=== PATIENT | male | born 1935 | race Caucasian/White ===

== ENCOUNTER 2016-09-27 17:00 | Emergency (ER) | payer MEDICARE ==
[~2016-09-27] VITALS: Ht 167.6 cm; Wt 77.7 kg
[~2016-09-27 17:00] MED LIST: AC325T PO; ACET-77 PO; ALTACE; ASP325T; ASPI-983 PO; ATOR10TA66 PO; CALC-697 PO; CHOL200035 PO; CYAN100053 IJ; CYAN500T44 PO; FAMO20TA5 PO; FENO145T2 PO; FINA5TAB PO; FNST5T; GARL400T13 PO; LISI40TA PO; METOPROLOL; MGX400T PO; MTP50T PO; MULT1CAP27 PO; NIAC1TBM5 PO; OMEG-109 PO; OMEP20TA2 PO; OMG1KC PO; ONDA4TAB11 PO; PNT40TEC; POTA10CA43 PO; POTA10TA14 PO; RMP5C; SIMV10TA3 PO; SMV10T; SULF1TAB35 PO; TOPROL PO; TRICOR; VIT1CAPS9 PO; WARF4TAB PO; WARFARIN; WRF2T PO; fiber therapy
--- OUTSIDE RECORDS SUMMARY | 2016-09-27 17:06 | XMS REPORT | Continuity of Care Document ---
Author Author [facility] Organization [facility] Address Unknown Phone Unavailable Support Name Relationship Address Phone DREA THOMAS DO Caregiver [address] [address] JAVAD BARFEILD Caregiver [address] [place] [address] KAYLA GUNN Next Of Kin [address] [place] [address] Insurance Providers Payer Name Policy Number Subscriber Name Relationship Wps Medicare [id number] Jorge Gunn 18 Self / Same As Patient Blue Cross Mcr Supp [id number] Jorge Gunn 18 Self / Same As Patient Advance Directives Directive Response Recorded Date/Time Advance Directives Yes 06/09/12 11:16am Health Care Power of Development Expert No 06/09/12 11:16am Organ Donor No 06/09/12 11:16am Problems No known problems or medical conditions. Medications Medication Dose Route Sig Days/Qty Instructions Order Date Discontinued Date Status [Toprol] 20 Mg PO TWICE A DAY 08/07/07 08/06/10 Discontinued Simvastatin 08/07/07 08/06/10 Discontinued [Tricor] 08/07/07 08/06/10 Discontinued [Warfarin ] 08/07/07 08/06/10 Discontinued Ramipril 11/28/07 08/06/10 Discontinued [Metoprolol] 11/28/07 08/06/10 Discontinued Pantoprazole Sodium 11/28/07 08/06/10 Discontinued [Warfarin] 11/28/07 08/06/10 Discontinued Simvastatin 11/28/07 08/06/10 Discontinued Finasteride 11/28/07 08/06/10 Discontinued Lisinopril (Zestril) 1 Each PO DAILY 08/06/10 Active Metoprolol Tartrate 1 Each PO TWICE A DAY 08/06/10 Active Finasteride 5 Mg PO BEDTIME 08/06/10 Active Warfarin Sodium 4 Mg PO DAILY 08/06/10 05/09/12 Discontinued Simvastatin 10 Mg PO BEDTIME 08/06/10 06/10/12 Discontinued Fenofibrate 1 Each PO TWICE A DAY 08/06/10 05/09/12 Discontinued Potassium Chloride (Micro K) 1 Each PO DAILY WITH FOOD 08/06/10 Active Omeprazole 20 Mg PO TWICE A DAY 08/06/10 06/10/12 Discontinued Fish Oil 3,000 Mg PO THREE TIMES A DAY 08/06/10 Active Multivitamins 1 Each PO 08/06/10 05/09/12 Discontinued Magnesium Oxide 400 Mg PO TWICE A DAY 08/06/10 Active Cyanocobalamin (Vitamin B 12 Injecting) 1,000 Mcg IJ MONTHLY 06/10/12 Discontinued Calcium Carbonate/Vitamin D3 1 Each PO DAILY 05/09/12 Active Cholecalciferol (Vitamin D3) 1,000 Unit PO DAILY 05/09/12 Active Garlic 400 Mg PO DAILY 05/09/12 Active Acetaminophen 325 Mg PO NEEDED 05/09/12 Active [fiber therapy] 05/09/12 Active [fiber therapy] 05/09/12 Active Warfarin Sodium 8 Mg PO MON 05/09/12 Active Warfarin Sodium 6 Mg PO TU,W,TH,FR,S,ABREU 05/09/12 Active Niacin/Simvastatin 1 Each PO DAILY 06/10/12 Active Cyanocobalamin (Vitamin B-12) 1 Ea PO DAILY 06/10/12 Active Social History Social History Problem Response Recorded Date/Time Recent Foreign Travel N [place] 08/26/2014 12:50pm Hospital Discharge Instructions No hospital discharge instructions. Plan of Care No plan of care. Functional Status No functional status results. Allergies, Adverse Reactions, Alerts Allergen Type Severity Reaction Status Last Updated No Known Drug Allergies Active 11/28/07 Immunizations Name Given Type Date of Pneumonia Vaccine 06/09/11 Historical Vital Signs No known vital signs results. Results No known relevant diagnostic tests, laboratory data and/or discharge summary. Procedures No known history of procedures. Encounters Encounter Location Date/Time Discharged Recurring Via [facility] 11/18/14 10:43am
--- NOTE | 2016-09-27 17:57 | ED Fall/Injury ---
General Chief Complaint: Trauma-Non Activation Stated Complaint: FALL Nursing Triage Note: FOUND ON FLOOR BY BED BY FACILITY STAFF. PT. DOES NOT WALK Source: RN notes reviewed, caregiver Exam Limitations: clinical condition, physical impairment History of Present Illness Time seen by provider: 17:57 Location Injury Occurred: R-FOREHEAD Occurred: just prior to arrival Injuries/Pain Location: head, neck Context: other (found on floor next to his bed. Patient non ambulatory.) Loss of Consciousness: unsure Modifying Factors: Improves With Other (none) Associated Symptoms (Fall): Neck Pain (although may be chronic) Trouble Walking (non weight bearing) Allergies and Home Medications Allergies Coded Allergies: No Known Drug Allergies (Verified , 11/28/07) Home Medications Acetaminophen 500 Mg Tablet #100 500 MG PO Q4H PRN PRN MILD PAIN Prescribed by: ANI SALDAÑA on 02/27/16 1506 Aspirin 81 Mg Tablet.dr #30 81 MG PO DAILY Prescribed by: DREA THOMAS on 02/16/16 0908 Atorvastatin Calcium 10 Mg Tablet #30 10 MG PO HS Prescribed by: DREA THOMAS on 02/16/16 0908 Cyanocobalamin (Vitamin B-12) 500 Mcg Tablet 500 MCG PO DAILY (Reported) Famotidine 20 Mg Tablet #60 20 MG PO BID PRN PRN INDIGESTION Prescribed by: ANI SALDAÑA on 02/27/16 1506 Finasteride 5 Mg Tablet 5 MG PO HS (Reported) [place]-3 Fatty Acids/Fish Oil 1 Each Capsule 1,200 MG PO DAILY (Reported) Ondansetron 4 Mg Tab.rapdis #30 4 MG PO Q6H PRN PRN NAUSEA/VOMITING Prescribed by: ANI SALDAÑA on 02/27/16 1506 Vit C/Vit E/Lutein/Min/[place]-3 1 Each Capsule 1 CAP PO DAILY (Reported) Constitutional: see HPI (unable to obtain secondary to patient's mental condition (chronic)) Skin: see HPI other (obvious hematoma right forehead) Past Jqctnhx-Hclazz-Gndncg Hx Patient Social History Alcohol Use: Denies Use Recreational Drug Use: No Smoking Status: Former Smoker Former Smoker/When Quit: Jun 09, 1980 Recent Foreign Travel: No Contact w/Someone Who Travel: No Recent Infectious Disease Expo: No Recent Hopitalizations: No (HEMICOLECTOMY) Physical Abuse Screen: No Sexual Abuse: No Immunizations Up To Date Date of Pneumonia Vaccine: Jun 09, 2013 Surgeries HX Surgeries: Yes (X4 BYPASSES,VALVE REPLACED,HOLE IN HEART PATCHED,ANEURYSM,T& A,[id number]) Surgeries: Cardiac, CABG, Vascular Surgery Respiratory Hx Respiratory Disorders: No Cardiovascular Hx Cardiac Disorders: Yes Cardiac Disorders: Aneurysm, Coronary Artery Disease, Hypertension Neurological Hx Neurological Disorders: Yes Reproductive System Hx Reproductive Disorders: No Genitourinary Hx Genitourinary Disorders: Yes (enlarged prostate) Genitourinary Disorders: Benign Prostatic Hyperpl Gastrointestinal Hx Gastrointestinal Disorders: No Musculoskeletal Hx Musculoskeletal Disorders: Yes Musculoskeletal Disorders: Arthritis Endocrine Hx Endocrine Disorders: No HEENT HX 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) HEENT Disorders: Cataract Loss of Vision: Bilateral Hearing Impairment: Hard of Hearing Cancer Hx Cancer: No Psychosocial Hx Psychiatric Problems: No Integumentary HX Skin/Integumentary Disorder: No Blood Transfusions Hx Blood Disorders: Yes (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 Skin is intact.) Cardiovascular: regular rate, rhythm Respiratory: no respiratory distress Rectal: deferred Neurologic/Psychiatric: alert Skin: warm/dry ecchymosis (right forehead) House Coma Score Best Eye Response: (4) Open Spontaneously Best Verbal Response: (1) No Verbal Response Best Motor Response: (5) Localizes to Pain Progress/Results/Core Measures Results/Orders Lab Results Laboratory Tests Test 09/27/16 19:10 Range/Units Activated Partial Thromboplast Time 36 H 24-35 SEC Alanine Aminotransferase (ALT/SGPT) 11 0-55 U/L Albumin 3.4 3.2-4.5 G/DL Alkaline Phosphatase 65 40-136 U/L Anion Gap 9 5-14 MMOL/L Aspartate Amino Transf (AST/SGOT) 17 5-34 U/L BUN/Creatinine Ratio 17 Basophils # (Auto) 0.0 0.0-0.1 10^3/uL Basophils (%) (Auto) 0 0-10 % Blood Urea Nitrogen 13 7-18 MG/DL Calcium Level 8.0 L 8.5-10.1 MG/DL Carbon Dioxide Level 24 21-32 MMOL/L Chloride Level 110 H 98-107 MMOL/L Creatinine 0.78 0.60-1.30 MG/DL Eosinophils # (Auto) 0.1 0.0-0.3 10^3/uL Eosinophils (%) (Auto) 2 0-10 % Estimat Glomerular Filtration Rate > 60 Glucose Level 103 70-105 MG/DL Hematocrit 35 L 40-54 % Hemoglobin 11.2 L 13.3-17.7 G/DL INR Comment 1.9 H 0.8-1.4 Lymphocytes # (Auto) 1.8 1.0-4.0 X 10^3 Lymphocytes (%) (Auto) 24 12-44 % Mean Corpuscular Hemoglobin 27 25-34 PG Mean Corpuscular Hemoglobin Concent 32 32-36 G/DL Mean Corpuscular Volume 85 80-99 FL Mean Platelet Volume 9.9 7.4-10.4 FL Monocytes # (Auto) 0.6 0.0-1.0 X 10^3 Monocytes (%) (Auto) 8 0-12 % Neutrophils # (Auto) 4.9 1.8-7.8 X 10^3 Neutrophils (%) (Auto) 66 42-75 % Platelet Count 240 130-400 10^3/uL Potassium Level 3.3 L 3.6-5.0 MMOL/L Prothrombin Time 21.8 H 12.2-14.7 SEC Red Blood Count 4.11 L 4.35-5.85 10^6/uL Red Cell Distribution Width 16.8 H 10.0-14.5 % Sodium Level 143 135-145 MMOL/L Total Bilirubin 0.7 0.1-1.0 MG/DL Total Protein 6.0 L 6.4-8.2 G/DL White Blood Count 7.5 4.3-11.0 10^3/uL My Orders Orders-ARISTIDES SUN DO Ct Head/Cervical Spine Wo (09/27/16 17:58) Saline Lock/Iv-Start (09/27/16 18:32) Cbc With Automated Diff (09/27/16 18:32) Comprehensive Metabolic Panel (09/27/16 18:32) Protime With Inr (09/27/16 18:32) Partial Thromboplastin Time (09/27/16 18:32) Vital Signs/I&O Vital Sign - Last 12Hours 09/27/16 09/27/16 17:40 20:30 Temp 97.5 97.5 Pulse 78 76 Resp 20 20 B/P 112/68 Pulse Ox 97 95 O2 Delivery Room Air Room Air Blood Pressure Mean: 83 Progress Note : Progress Note Discussed case c/ Dr. Riley, the Trauma surgeon decision support manager. He had no problem [facility] the [facility] and following up c/ Dr. Jensen outpatient a[place]is. Patient's DPOA aware of all the findings tonight and current treatment plans. 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 Nothing acute C-spine alexis.) Departure Impression Impression: Primary Impression: Fall Additional Impressions: Contusion /hematoma forehead Aggressive lesion sinuses Disposition: Condition: Stable Departure-Patient Inst. Decision time for Depature: 20:15 Referrals: DREA THOMAS DO (PCP/Family) Primary Care Physician Patient Instructions: Closed Head Injury (DC) Add. Discharge Instructions: All discharge instructions reviewed with patient and/or family. Voiced understanding. NEED TO SCHEDULE A FOLLOW UP APPOINTMENT WITH DR. JENSEN (ENT) REGARDING THE TUMOR FOUND IN HIS SINUS THIS ARISTIDES BURKS DO Sep 27, 2016 17:57
--- NOTE | 2016-09-27 19:16 | Diagnostic Imaging Report ---
PROCEDURE: CT head and CT cervical spine without contrast. TECHNIQUE: Multiple contiguous axial images were obtained through the brain and cervical spine without the use of intravenous contrast. Sagittal and coronal reformations through the cervical spine were then performed. INDICATION: Fall. Patient found down. On blood thinners. COMPARISON: Head CT dated 02/27/2016. FINDINGS: Head CT: No acute intracranial hemorrhage is suspected. There is no mass effect or midline shift. The partially calcified extra-axial hyperdense mass in the anterior right frontal calvarium is again demonstrated and appears similar to the prior study measuring about 3.7 cm x 3 cm. This is likely a benign meningioma. Diffuse atrophy appears similar to the prior study. Ventricles appear stable in size. Areas of old infarct in the right frontal and occipital lobes bilaterally are again noted similar to the prior exam as are scattered chronic-appearing white matter changes likely related to underlying small vessel ischemic disease. No new focal abnormality is suspected. There is significant abnormal soft tissue density in the left maxillary sinus which is new from the prior study. This appears to be causing some destructive change of the medial maxillary wall, and a mucocele or aggressive lesion such as squamous cell carcinoma would not be entirely excluded. No discrete fracture is seen. There is also soft tissue thickening extending through the nares into the nasopharynx and oropharynx on the left and also into the sphenoid sinus. Cervical spine CT: No acute fracture or acute traumatic malalignment is suspected. There is rotation at the atlantoaxial interval which is likely positional. There are diffuse degenerative changes with disc space narrowing and spurring throughout the cervical spine with multiple levels of foraminal stenosis. IMPRESSION: 1. No evidence of an acute intracranial or cervical spine traumatic abnormality. 2. Large partially calcified extra-axial mass in the right frontal region is unchanged from the prior study as are chronic senescent changes as described above. 3. Large destructive soft tissue lesion originating in the left maxillary sinus with extension through the medial left maxillary wall and nares into the left sphenoid sinus as well as involving the nasopharynx and oropharynx. This is concerning for an aggressive lesion possibly neoplasm. 4. Degenerative changes in the spine. 5. Rotation at the atlantoaxial interval is likely due to patient positioning. Dictated by: Dictated on workstation # [id number]
[2016-09-27 19:22] LABS: BASOPHILS % (AUTO) 0 % (0-10); EOSINOPHILS # (AUTO) 0.1 10^3/uL (0.0-0.3); EOSINOPHILS % (AUTO) 2 % (0-10); LYMPHOCYTES # (AUTO) 1.8 X 10^3 (1.0-4.0); LYMPHOCYTES % (AUTO) 24 % (12-44); MEAN CORPUSCULAR HEMOGLOBIN 27 PG (25-34); MEAN CORPUSCULAR HGB CONC 32 G/DL (32-36); MEAN CORPUSCULAR VOLUME 85 FL (80-99); MEAN PLATELET VOLUME 9.9 FL (7.4-10.4); MONOCYTES # (AUTO) 0.6 X 10^3 (0.0-1.0); MONOCYTES % (AUTO) 8 % (0-12); NEUTROPHILS # (AUTO) 4.9 X 10^3 (1.8-7.8); NEUTROPHILS % (AUTO) 66 % (42-75); PLATELET COUNT 240 10^3/uL (130-400); RED BLOOD COUNT 4.11 10^6/uL (4.35-5.85); RED CELL DISTRIBUTION WIDTH 16.8 % (10.0-14.5); WHITE BLOOD COUNT 7.5 10^3/uL (4.3-11.0)
[2016-09-27 19:35] LABS: INR 1.9 (0.8-1.4); PROTHROMBIN TIME PATIENT 21.8 SEC (12.2-14.7)
[2016-09-27 19:45] LABS: ALANINE AMINOTRANSFERASE 11 U/L (0-55); ALBUMIN 3.4 G/DL (3.2-4.5); ANION GAP 9 MMOL/L (5-14); ASPARTATE AMINO TRANSFERASE 17 U/L (5-34); BILIRUBIN,TOTAL 0.7 MG/DL (0.1-1.0); BLOOD UREA NITROGEN 13 MG/DL (7-18); BUN/CREATININE RATIO 17; CARBON DIOXIDE 24 MMOL/L (21-32); CHLORIDE 110 MMOL/L (98-107); CREATININE SERUM 0.78 MG/DL (0.60-1.30); GFR ESTIMATED > 60; GLUCOSE 103 MG/DL (70-105); POTASSIUM 3.3 MMOL/L (3.6-5.0); SODIUM 143 MMOL/L (135-145)
[2016-09-27 20:30] VITALS: BP 119/73
== END 2016-09-27 20:30 ==
LOC: EDUNIT# 17:00 → ER 17:02
DX: S00.83XA Contusion of other part of head, initial encounter (principal); J34.89 Other specified disorders of nose and nasal sinuses; M47.812 Spondylosis without myelopathy or radiculopathy, cervical region; I10 Essential (primary) hypertension; Z79.82 Long term (current) use of aspirin; Z79.899 Other long term (current) drug therapy; Z95.1 Presence of aortocoronary bypass graft; W06.XXXA Fall from bed, initial encounter; Y92.122 Bedroom in nursing home as the place of occurrence of the external cause; Y99.8 Other external cause status
CPT/HCPCS: 36415; 70450; 72125; 80053; 85025; 85610; 85730

== ENCOUNTER 2016-10-07 13:42 | Outpatient (RCR) | payer MEDICARE ==
[2016-10-07 13:42] LABS: BASOPHILS % (AUTO) 0 % (0-10); EOSINOPHILS # (AUTO) 0.1 10^3/uL (0.0-0.3); EOSINOPHILS % (AUTO) 2 % (0-10); LYMPHOCYTES # (AUTO) 1.4 X 10^3 (1.0-4.0); LYMPHOCYTES % (AUTO) 18 % (12-44); MEAN CORPUSCULAR HEMOGLOBIN 27 PG (25-34); MEAN CORPUSCULAR HGB CONC 32 G/DL (32-36); MEAN CORPUSCULAR VOLUME 85 FL (80-99); MEAN PLATELET VOLUME 9.5 FL (7.4-10.4); MONOCYTES # (AUTO) 0.8 X 10^3 (0.0-1.0); MONOCYTES % (AUTO) 11 % (0-12); NEUTROPHILS # (AUTO) 5.2 X 10^3 (1.8-7.8); NEUTROPHILS % (AUTO) 69 % (42-75); PLATELET COUNT 245 10^3/uL (130-400); RED BLOOD COUNT 4.05 10^6/uL (4.35-5.85); RED CELL DISTRIBUTION WIDTH 16.9 % (10.0-14.5); WHITE BLOOD COUNT 7.5 10^3/uL (4.3-11.0)
--- OUTSIDE RECORDS SUMMARY | 2016-10-07 13:46 | XMS REPORT | Continuity of Care Document ---
Author Author [facility] Organization [facility] Address Unknown Phone Unavailable Support Name Relationship Address Phone DREA THOMAS DO Caregiver [address] [address] JAVAD BARFIELD Caregiver [address] [place] [address] KAYLA GUNN Next Of Kin [address] [place] [address] Insurance Providers Payer Name Policy Number Subscriber Name Relationship Wps Medicare [id number] Jorge Gunn 18 Self / Same As Patient Blue Cross Mcr Supp [id number] Jorge Gunn 18 Self / Same As Patient Advance Directives Directive Response Recorded Date/Time Advance Directives Yes 06/09/12 11:16am Health Care Power of Debeader No 06/09/12 11:16am Organ Donor No 06/09/12 [...] Encounters Encounter Location Date/Time Discharged Recurring Via [facility] 11/18/14 10:43am
[2016-10-07 14:20] LABS: INR 1.9 (0.8-1.4); PROTHROMBIN TIME PATIENT 21.1 SEC (12.2-14.7)
[2016-10-07 14:27] LABS: ALANINE AMINOTRANSFERASE 9 U/L (0-55); ALBUMIN 3.3 G/DL (3.2-4.5); ANION GAP 9 MMOL/L (5-14); ASPARTATE AMINO TRANSFERASE 15 U/L (5-34); BILIRUBIN,TOTAL 0.7 MG/DL (0.1-1.0); BLOOD UREA NITROGEN 11 MG/DL (7-18); BUN/CREATININE RATIO 14; CALCIUM 7.5 MG/DL (8.5-10.1); CARBON DIOXIDE 24 MMOL/L (21-32); CHLORIDE 110 MMOL/L (98-107); CREATININE SERUM 0.78 MG/DL (0.60-1.30); GFR ESTIMATED > 60; GLUCOSE 128 MG/DL (70-105); POTASSIUM 2.6 MMOL/L (3.6-5.0); SODIUM 143 MMOL/L (135-145)
[2016-10-11 08:31] LABS: METHYLMALONIC ACID 0.18 umol/L (0.00-0.40)
== END 2017-01-05 | disposition home or self-care (01) ==
LOC: ONC 13:42
PROVIDERS: ATTEND Internal Medicine Hematology & Oncology
DX: D51.8 Other vitamin B12 deficiency anemias (principal); D50.9 Iron deficiency anemia, unspecified; D63.1 Anemia in chronic kidney disease; N18.3 Chronic kidney disease, stage 3 (moderate); I25.10 Atherosclerotic heart disease of native coronary artery without angina pectoris; E78.5 Hyperlipidemia, unspecified; I12.9 Hypertensive chronic kidney disease with stage 1 through stage 4 chronic kidney disease, or unspecified chronic kidney disease; Z79.01 Long term (current) use of anticoagulants; Z79.899 Other long term (current) drug therapy; Z95.2 Presence of prosthetic heart valve
CPT/HCPCS: 36415; 80053; 82728; 83735; 83921; 85025; 85610; 99213

== ENCOUNTER → 2017-02-24 | Emergency (ER) | payer MEDICARE ==
[~2017-02-24] VITALS: Ht 170.2 cm; Wt 90.7 kg
[~2017-02-24] MED LIST changes: +HYDR-757 PO; +HYDROcodone/APAP 5 MG/325 MG (LORTAB) TAB PO ONE; +IOHEXOL 350 MG/ML 100 ML (OMNIPAQUE 350) VIAL IV ONE; +NS 100 ML (IVPB) BAG IV ONE
[2017-02-24 16:15] VITALS: BP 123/106
--- NOTE | 2017-02-24 16:28 | ED Fall/Injury ---
General Stated Complaint: FALL Source: patient Exam Limitations: no limitations History of Present Illness Time seen by provider: 16:27 Initial Comments To ER [facility] with reports of a fall out of bed. He has laceration to the right frontal part of his scalp. Unknown loss of consciousness. No neck pain. He also has pain to the right anterolateral ribs. He is baseline senile. Occurred: just prior to arrival Severity: moderate Context: unknown Allergies and Home Medications Allergies Coded Allergies: No Known Drug Allergies (Verified , 11/28/07) Home Medications Acetaminophen 500 Mg Tablet, 500 MG PO Q4H PRN for MILD PAIN, #100 Prescribed by: ANI SALDAÑA on 02/27/16 1506 Aspirin 81 Mg Tablet.dr, 81 MG PO DAILY, #30 Prescribed by: DREA THOMAS on 02/16/16 0908 Atorvastatin Calcium 10 Mg Tablet, 10 MG PO HS, #30 Prescribed by: DREA THOMAS on 02/16/16 0908 Cyanocobalamin (Vitamin B-12) 500 Mcg Tablet, 500 MCG PO DAILY, (Reported) Famotidine 20 Mg Tablet, 20 MG PO BID PRN for INDIGESTION, #60 Prescribed by: ANI SALDAÑA on 02/27/16 1506 Finasteride 5 Mg Tablet, 5 MG PO HS, (Reported) Hydrocodone/Acetaminophen 1 Each Tablet, 1 EACH PO Q4H PRN for PAIN-MILD TO MODERATE, #10 Prescribed by: JANKI PIZANO on 02/24/17 1819 [place]-3 Fatty Acids/Fish Oil 1 Each Capsule, 1,200 MG PO DAILY, (Reported) Ondansetron 4 Mg Tab.rapdis, 4 MG PO Q6H PRN for NAUSEA/VOMITING, #30 Prescribed by: ANI SALDAÑA on 02/27/16 1506 Vit C/Vit E/Lutein/Min/[place]-3 1 Each Capsule, 1 CAP PO DAILY, (Reported) Constitutional: see HPI Eyes: No Symptoms Reported Ears, Nose, Mouth, Throat: no symptoms reported Respiratory: no symptoms reported Cardiovascular: no symptoms reported Genitourinary: no symptoms reported Musculoskeletal: no symptoms reported Skin: no symptoms reported Psychiatric/Neurological: No Symptoms Reported Past Fxssccb-Oiyqlu-Zdzcjd Hx Patient Social History Former Smoker/When Quit: Jun 09, 1980 Recent Hopitalizations: No (HEMICOLECTOMY) Immunizations Up To Date Date of Pneumonia Vaccine: Jun 09, 2013 Surgeries HX Surgeries: Yes (X4 BYPASSES,VALVE REPLACED,HOLE IN HEART PATCHED,ANEURYSM,T& A,[id number]) Surgeries: Cardiac, CABG, Vascular Surgery Respiratory Hx Respiratory Disorders: No Cardiovascular Hx Cardiac Disorders: Yes Cardiac Disorders: Aneurysm, Coronary Artery Disease, Hypertension Neurological Hx Neurological Disorders: Yes Reproductive System Hx Reproductive Disorders: No Genitourinary Hx Genitourinary Disorders: Yes (enlarged prostate) Genitourinary Disorders: Benign Prostatic Hyperpl Gastrointestinal Hx Gastrointestinal Disorders: No Musculoskeletal Hx Musculoskeletal Disorders: Yes Musculoskeletal Disorders: Arthritis Endocrine Hx Endocrine Disorders: No HEENT HX 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) HEENT Disorders: Cataract Loss of Vision: Bilateral Hearing Impairment: Hard of Hearing Cancer Hx Cancer: No Psychosocial Hx Psychiatric Problems: No Integumentary HX Skin/Integumentary Disorder: No Blood Transfusions Hx Blood Disorders: Yes (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) Adverse Reaction to a Blood Tr: No Family Medical History Significant Family History: Stroke Physical Exam Vital Signs Vital Sign - Last 12Hours 02/24/17 16:15 Pulse 107 Resp 22 B/P (MAP) 123/106 (112) Pulse Ox 94 O2 Delivery Room Air Capillary Refill : General Appearance: WD/WN, no apparent distress HEENT: PERRL/EOMI, normal ENT inspection Neck: non-tender, full range of motion Respiratory: no respiratory distress, no accessory muscle use, other (tender to palpation right anterolateral chest) Gastrointestinal: normal bowel sounds, non tender, soft Neurologic/Psychiatric: alert, other (alternating between yelling "help me, help me!" And serenading the entire ER with various old songs) Laceration Repair : Wound Location: Scalp (Drive) Staple Repair: Stapler 35W Progress/Results/Core Measures Results/Orders Lab Results Laboratory Tests Test 02/24/17 16:12 02/24/17 16:17 Range/Units Prothrombin Time 23.4 H 12.2-14.7 SEC INR Comment 2.1 H 0.8-1.4 White Blood Count 7.0 4.3-11.0 10^3/uL Red Blood Count 4.56 4.35-5.85 10^6/uL Hemoglobin 12.3 L 13.3-17.7 G/DL Hematocrit 39 L 40-54 % Mean Corpuscular Volume 86 80-99 FL Mean Corpuscular Hemoglobin 27 25-34 PG Mean Corpuscular Hemoglobin Concent 31 L 32-36 G/DL Red Cell Distribution Width 16.2 H 10.0-14.5 % Platelet Count 235 130-400 10^3/uL Mean Platelet Volume 10.3 7.4-10.4 FL Neutrophils (%) (Auto) 69 42-75 % Lymphocytes (%) (Auto) 20 12-44 % Monocytes (%) (Auto) 9 0-12 % Eosinophils (%) (Auto) 1 0-10 % Basophils (%) (Auto) 0 0-10 % Neutrophils # (Auto) 4.8 1.8-7.8 X 10^3 Lymphocytes # (Auto) 1.4 1.0-4.0 X 10^3 Monocytes # (Auto) 0.7 0.0-1.0 X 10^3 Eosinophils # (Auto) 0.1 0.0-0.3 10^3/uL Basophils # (Auto) 0.0 0.0-0.1 10^3/uL Sodium Level 141 135-145 MMOL/L Potassium Level 4.0 3.6-5.0 MMOL/L Chloride Level 109 H 98-107 MMOL/L Carbon Dioxide Level 22 21-32 MMOL/L Anion Gap 10 5-14 MMOL/L Blood Urea Nitrogen 21 H 7-18 MG/DL Creatinine 0.96 0.60-1.30 MG/DL Estimat Glomerular Filtration Rate > 60 BUN/Creatinine Ratio 22 Glucose Level 113 H 70-105 MG/DL Calcium Level 9.0 8.5-10.1 MG/DL Total Bilirubin 0.7 0.1-1.0 MG/DL Aspartate Amino Transf (AST/SGOT) 18 5-34 U/L Alanine Aminotransferase (ALT/SGPT) 15 0-55 U/L Alkaline Phosphatase 65 40-136 U/L Total Protein 6.9 6.4-8.2 G/DL Albumin 3.9 3.2-4.5 G/DL My Orders Orders - JANKI PIZANO APRN Cbc With Automated Diff (02/24/17 16:12) Comprehensive Metabolic Panel (02/24/17 16:12) Ct Head/Cervical Spine Wo (02/24/17 16:12) Fentanyl Injection (Sublimaze Injection (02/24/17 16:30) Chest 1 View, Ap/Pa Only (02/24/17 16:26) Iohexol Injection (Omnipaque 350 Mg/Ml 1 (02/24/17 17:00) Ns (Ivpb) (Sodium Chloride 0.9% Ivpb Bag (02/24/17 17:00) Protime With Inr (02/24/17 17:12) Ct Chest/Abdomen/Pelvis Wo (02/24/17 16:12) Lidocaine 2% Injection 20 Ml (Xylocaine (02/24/17 18:15) Vital Signs/I&O Vital Sign - Last 12Hours 02/24/17 16:15 Pulse 107 Resp 22 B/P (MAP) 123/106 (112) Pulse Ox 94 O2 Delivery Room Air Departure Impression Impression: Primary Impression: Scalp laceration Additional Impressions: Fall at snf Calcified cerebral meningioma Disposition: 03 XFER SNF Condition: Stable Departure-Patient Inst. Decision time for Depature: 18:05 Referrals: SYED SANTO MD (PCP/Family) Primary Care Physician Patient Instructions: Laceration Repair With [place] (DC) Add. Discharge Instructions: 1. Remove the mansoor in 7 days 2. Return to ER for any concerns 3. See his doctor next week Scripts Hydrocodone/Acetaminophen ([place] 5-325 Tablet) 1 Each Tablet 1 EACH PO Q4H Y for PAIN-MILD TO MODERATE, #10 TAB Prov: JANKI PIZANO APRN 02/24/17 JANKI PIZANO APRN Feb 24, 2017 16:28
[2017-02-24 16:35] LABS: BASOPHILS % (AUTO) 0 % (0-10); EOSINOPHILS # (AUTO) 0.1 10^3/uL (0.0-0.3); EOSINOPHILS % (AUTO) 1 % (0-10); LYMPHOCYTES # (AUTO) 1.4 X 10^3 (1.0-4.0); LYMPHOCYTES % (AUTO) 20 % (12-44); MEAN CORPUSCULAR HEMOGLOBIN 27 PG (25-34); MEAN CORPUSCULAR HGB CONC 31 G/DL (32-36); MEAN CORPUSCULAR VOLUME 86 FL (80-99); MEAN PLATELET VOLUME 10.3 FL (7.4-10.4); MONOCYTES # (AUTO) 0.7 X 10^3 (0.0-1.0); MONOCYTES % (AUTO) 9 % (0-12); NEUTROPHILS # (AUTO) 4.8 X 10^3 (1.8-7.8); NEUTROPHILS % (AUTO) 69 % (42-75); PLATELET COUNT 235 10^3/uL (130-400); RED BLOOD COUNT 4.56 10^6/uL (4.35-5.85); RED CELL DISTRIBUTION WIDTH 16.2 % (10.0-14.5)
[2017-02-24 16:53] LABS: ALANINE AMINOTRANSFERASE 15 U/L (0-55); ALBUMIN 3.9 G/DL (3.2-4.5); ANION GAP 10 MMOL/L (5-14); ASPARTATE AMINO TRANSFERASE 18 U/L (5-34); BILIRUBIN,TOTAL 0.7 MG/DL (0.1-1.0); BLOOD UREA NITROGEN 21 MG/DL (7-18); BUN/CREATININE RATIO 22; CARBON DIOXIDE 22 MMOL/L (21-32); CHLORIDE 109 MMOL/L (98-107); CREATININE SERUM 0.96 MG/DL (0.60-1.30); GFR ESTIMATED > 60; GLUCOSE 113 MG/DL (70-105); SODIUM 141 MMOL/L (135-145); TOTAL PROTEIN 6.9 G/DL (6.4-8.2)
--- NOTE | 2017-02-24 16:59 | Diagnostic Imaging Report ---
INDICATION: Status post fall with chest pain. PA chest obtained at 04:42 p.m. Patient has had previous sternotomy with valve replacement. Heart is normal in size. There is no acute infiltrate, pneumothorax, or pleural fluid. There is some minimal linear scarring in left lateral base. IMPRESSION: Postoperative findings with mild chronic changes. No acute abnormality. Dictated by: Dictated on workstation # [id number]
[2017-02-24 17:20] LABS: INR 2.1 (0.8-1.4); PROTHROMBIN TIME PATIENT 23.4 SEC (12.2-14.7)
--- NOTE | 2017-02-24 17:47 | Diagnostic Imaging Report ---
PROCEDURE: CT chest, abdomen, and pelvis without contrast. TECHNIQUE: Multiple contiguous axial images were obtained through the chest, abdomen, and pelvis without the use of intravenous contrast. INDICATION: Fell to the right side of the body, has head laceration to the right forehead, abrasion to the right elbow and tenderness to the right ribs and chest area. Patient has intracranial hemorrhage reportedly. FINDINGS: CT scanning of the chest demonstrates the lungs to be clear. No pulmonary nodules or pleural effusions are present. Previous coronary artery bypass graft changes and valvular heart surgery is present. There are no pleural or pericardial effusions. No fractures are identified. There is no pneumothorax. Abdomen and pelvis: The liver, spleen, pancreas and adrenal glands appear normal. Bilateral renal cysts are present. No calculi or hydronephrosis is seen. Mesh is seen within the abdominal wall. Urinary bladder is normal. Increased stool is seen throughout the colon. No evidence of an ileus or obstruction is present. The gallbladder may have some mild gallbladder wall thickening. If the patient has symptoms, consider an ultrasound. No fractures or diastasis are identified. Degenerative changes are present in the spine. IMPRESSION: 1. No acute findings are present. 2. Previous aortic valve and coronary artery bypass graft changes. 3. Constipation with mild diverticulosis. 4. Degenerative changes of the spine. Dictated by: Dictated on workstation # [id number]
--- NOTE | 2017-02-24 17:53 | Diagnostic Imaging Report ---
PROCEDURE: CT head and CT cervical spine without contrast. TECHNIQUE: Multiple contiguous axial images were obtained through the brain and cervical spine without the use of intravenous contrast. Sagittal and coronal reformations through the cervical spine were then performed. INDICATION: Fall. Laceration on the right forehead. COMPARISON: 09/27/16. FINDINGS: CT head: There is a calcified mass, measuring 3.6 x 2.7 cm in an extra-axial location along the medial aspect of the falx cerebri, anteriorly, with the mass effect upon the right frontal lobe. 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 There is also evidence of old infarcts in the occipital regions. There is bilateral extensive periventricular and deep white matter hypodensities compatible with chronic microvascular ischemic changes. There is no acute intracranial hemorrhage. The calvarium appears grossly unremarkable. Similar to 09/27/2016 there is soft tissue obliteration of the visualized portions of the maxillary sinus and nasal cavity with extension of the process to the left ethmoidal air cells which could represent a neoplasm or a sinonasal polyp. CT cervical spine: The alignment of the posterior spinal line is similar to 09/27/2016 with mild posterior transition of C3 over C4 and posterior fusion of the vertebral bodies C5 and C6 with straightening of the lordotic curvature. There is satisfactory alignment of the facet joints. The atlantooccipital joints and the lateral masses of C1 and C2 have normal alignment. The vertebral body heights are preserved. Multilevel posterior osteophytes are noted. Stable sclerotic lesion in the second thoracic vertebra, measuring 1.5 cm, is again seen of uncertain etiology. No fracture is seen. IMPRESSION: CT head: 1. No intracranial hemorrhage. 2. 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 3. Mass opacifying the right maxillary sinus extending to the right nasal cavity and ethmoidal air cells may represent a sinonasal polyp or neoplasm. CT cervical spine: No fracture is seen. Dictated by: Dictated on workstation # [id number]
[2017-02-24] MEDS: LIDOCAINE 2% 20 ML (XYLOCAINE) VIAL INJ ONE (18:25)
[2017-02-24] MEDS: TETANUS,DIPTH,PERTUSS P/F (BOOSTRIX) 0.5 ML VIAL IM ONE (18:49)
[2017-02-24] MEDS: fentaNYL INJECTION 100 MCG/2 ML AMP IVP ONE (18:55)
== END ==
LOC: EDUNIT# 16:11 → ER 16:12
DX: S01.01XA Laceration without foreign body of scalp, initial encounter (principal); S50.311A Abrasion of right elbow, initial encounter; S29.9XXA Unspecified injury of thorax, initial encounter; Z23 Encounter for immunization; J34.9 Unspecified disorder of nose and nasal sinuses; K59.00 Constipation, unspecified; K57.30 Diverticulosis of large intestine without perforation or abscess without bleeding; M47.816 Spondylosis without myelopathy or radiculopathy, lumbar region; D32.0 Benign neoplasm of cerebral meninges; I10 Essential (primary) hypertension; I25.10 Atherosclerotic heart disease of native coronary artery without angina pectoris; Z95.1 Presence of aortocoronary bypass graft; Z79.82 Long term (current) use of aspirin; W06.XXXA Fall from bed, initial encounter; Y92.219 Unspecified school as the place of occurrence of the external cause; Y99.8 Other external cause status
CPT/HCPCS: 12013; 36415; 70450; 71010; 71250; 72125; 74176; 80053; 85025; 85610; 90715

== ENCOUNTER 2017-06-21 15:39 | Emergency (ER) | payer MEDICARE, MEDICAID ==
[~2017-06-21] VITALS: Ht 170.2 cm; Wt 84.1 kg
[~2017-06-21 15:39] MED LIST changes: -HYDROcodone/APAP 5 MG/325 MG (LORTAB) TAB PO ONE; -IOHEXOL 350 MG/ML 100 ML (OMNIPAQUE 350) VIAL IV ONE; -NS 100 ML (IVPB) BAG IV ONE
--- NOTE | 2017-06-21 16:39 | Diagnostic Imaging Report ---
PROCEDURE: CT head without contrast. TECHNIQUE: Multiple contiguous axial images were obtained through the brain without the use of intravenous contrast. INDICATION: Headache in the frontal region. COMPARISON: 02/24/2017. FINDINGS: There is a right parafalcine extra-axial calcified mass measuring 3.8 cm, compatible with a meningioma, similar to the 02/24/2017 exam. 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 Old infarcts in the occipital lobes are also seen in addition to background chronic microvascular ischemic changes in the periventricular and deep white matter. There is no acute intracranial hemorrhage. No brain edema or mass effect. No hydrocephalus. The calvarium and the visualized portions of the orbits appear unremarkable. There is soft tissue density filling and slightly expanding the left maxillary sinus and the left nasal cavity, similar to 02/24/2017 which may relate to an intracranial polyp or potentially could be neoplastic. An ENT evaluation is suggested. IMPRESSION: 1. Stable calcified anterior right parafalcine mass, compatible with a meningioma. 2. Stable mass in the left maxillary sinus and left nasal cavity which may relate to an antrochoanal polyp or neoplasm. An ENT evaluation is suggested. 3. No acute intracranial hemorrhage. Dictated by: Dictated on workstation # [id number]
--- NOTE | 2017-06-21 16:51 | ED Fall/Injury ---
General Chief Complaint: Trauma-Non Activation Stated Complaint: PT FELL AND HIT HEAD Nursing Triage Note: SEE TRAUMA NOTE. Source: patient, snf records, caregiver Exam Limitations: no limitations History of Present Illness Time seen by provider: 16:30 Initial Comments Here from snf with unwitnessed fall. Apparently hit his forehead. Unsure if he was sitting or trying to get out of bed. Patient denies any significant injury except for stating that his forehead hurts. He is on Coumadin. Location Injury Occurred: [facility] Occurred: this afternoon Severity: mild Injuries/Pain Location: head Context: unknown Loss of Consciousness: unsure Associated Symptoms (Fall): Headache Allergies and Home Medications Allergies Coded Allergies: No Known Drug Allergies (Verified , 11/28/07) Home Medications Acetaminophen 500 Mg Tablet, 500 MG PO Q4H PRN for MILD PAIN, #100 Prescribed by: ANI SALDAÑA on 02/27/16 1506 Aspirin 81 Mg Tablet.dr, 81 MG PO DAILY, #30 Prescribed by: DREA THOMAS on 02/16/16 0908 Atorvastatin Calcium 10 Mg Tablet, 10 MG PO HS, #30 Prescribed by: DREA THOMAS on 02/16/16 0908 Cyanocobalamin (Vitamin B-12) 500 Mcg Tablet, 500 MCG PO DAILY, (Reported) Famotidine 20 Mg Tablet, 20 MG PO BID PRN for INDIGESTION, #60 Prescribed by: ANI SALDAÑA on 02/27/16 1506 Finasteride 5 Mg Tablet, 5 MG PO HS, (Reported) Hydrocodone/Acetaminophen 1 Each Tablet, 1 EACH PO Q4H PRN for PAIN-MILD TO MODERATE, #10 Prescribed by: JANKI PIZANO on 02/24/17 1819 [place]-3 Fatty Acids/Fish Oil 1 Each Capsule, 1,200 MG PO DAILY, (Reported) Ondansetron 4 Mg Tab.rapdis, 4 MG PO Q6H PRN for NAUSEA/VOMITING, #30 Prescribed by: ANI SALDAÑA on 02/27/16 1506 Vit C/Vit E/Lutein/Min/[place]-3 1 Each Capsule, 1 CAP PO DAILY, (Reported) Constitutional: see HPI, No chills, No fever Eyes: No Symptoms Reported Ears, Nose, Mouth, Throat: no symptoms reported Respiratory: no symptoms reported Cardiovascular: no symptoms reported Gastrointestinal: no symptoms reported, No nausea, No vomiting Musculoskeletal: no symptoms reported Skin: no symptoms reported, No change in color, No lesions, No rash Psychiatric/Neurological: No Symptoms Reported Past Lkbrbrp-Njzwmu-Vuxtlk Hx Patient Social History Alcohol Use: Denies Use Recreational Drug Use: No Smoking Status: Former Smoker Former Smoker, Quit: Jun 09, 1980 2nd Hand Smoke Exposure: No Recent Foreign Travel: No Contact w/Someone Who Travel: No Recent Infectious Disease Expo: No Recent Hopitalizations: No Physical Abuse: No Sexual Abuse: No Immunizations Up To Date Date of Pneumonia Vaccine: Jun 09, 2013 Surgeries History of Surgeries: Yes (X4 BYPASSES,VALVE REPLACED,HOLE IN HEART PATCHED, ANEURYSM,T&A,[id number]) Surgeries: Cardiac, CABG, Vascular Surgery Respiratory History of Respiratory Disorde: No Currently Using CPAP: No Currently Using BIPAP: No Cardiovascular History of Cardiac Disorders: Yes Cardiac Disorders: Aneurysm, Coronary Artery Disease, Endocarditis, High Cholesterol, Hypertension Neurological History of Neurological Disord: Yes Reproductive System Hx Reproductive Disorders: No Genitourinary Genitourinary Disorders: Benign Prostatic Hyperpl Gastrointestinal History of Gastrointestinal Di: Yes Gastrointestinal Disorders: Ulcer Musculoskeletal History of Musculoskeletal Dis: Yes Musculoskeletal Disorders: Arthritis Endocrine History of Endocrine Disorders: No HEENT HEENT Disorders: Cataract Loss of Vision: Bilateral Hearing Impairment: Hard of Hearing Cancer History of Cancer: No Psychosocial History of Psychiatric Problem: No Suicide Risk Score: 0 Integumentary History of Skin or Integumenta: No Blood Transfusions History of Blood Disorders: Yes (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) Adverse Reaction to a Blood Tr: No Reviewed Nursing Assessment Reviewed/Agree w Nursing PMH: Yes Family Medical History Significant Family History: Stroke Physical Exam Vital Signs Vital Sign - Last 12Hours 06/21/17 15:55 Temp 98.1 Pulse 90 Resp 20 B/P (MAP) 105/70 Pulse Ox 97 O2 Delivery Room Air Capillary Refill : Less Than 3 Seconds General Appearance: no apparent distress, thin HEENT: PERRL/EOMI, pharynx normal Neck: full range of motion, supple Cardiovascular: regular rate, rhythm, systolic murmur Respiratory: lungs clear, normal breath sounds Gastrointestinal: non tender, soft Extremities: no pedal edema, pelvis stable Neurologic/Psychiatric: alert, oriented x 3 Skin: normal color, warm/dry Renan Coma Score Best Eye Response: (4) Open Spontaneously Best Verbal Response: (5) Oriented Best Motor Response: (6) Obeys Commands Progress/Results/Core Measures Results/Orders Lab Results Laboratory Tests Test 06/21/17 16:40 Range/Units Prothrombin Time 36.1 H 12.2-14.7 SEC INR Comment 3.7 H 0.8-1.4 My Orders Orders - EMIR PAYNE MD Ct Head Wo (06/21/17 15:54) Protime With Inr (06/21/17 15:54) Vital Signs/I&O Vital Sign - Last 12Hours 06/21/17 15:55 Temp 98.1 Pulse 90 Resp 20 B/P (MAP) 105/70 Pulse Ox 97 O2 Delivery Room Air Blood Pressure Mean: 82 Progress Note : Progress Note Seen and evaluated. CT head ordered. PT and INR evaluated. Monitor patient. 1708: No acute findings on CT. Findings are noted. Discharged snf with return precautions. Caregiver verbalize understanding instructions and agreement with plan. Departure Impression Impression: Primary Impression: Minor head injury Qualified Codes: S00.90XA - Unspecified superficial injury of unspecified part of head, initial encounter Additional Impression: Fall Qualified Codes: W19.XXXA - Unspecified fall, initial encounter Disposition: 01 HOME, SELF-CARE Condition: Stable Departure-Patient Inst. Decision time for Depature: 17:13 Referrals: SYED SANTO MD (PCP/Family) Primary Care Physician Patient Instructions: Minor Head Injury (DC) Add. Discharge Instructions: All discharge instructions reviewed with patient and/or family. Voiced understanding. Continue medications as directed. Follow-up with your DrTeresa in one to 2 days for recheck. Return for worse pain, fever, vomiting, weakness, breathing problems or other concerns as needed. EMIR PAYNE MD Jun 21, 2017 16:51
[2017-06-21 16:55] LABS: INR 3.7 (0.8-1.4); PROTHROMBIN TIME PATIENT 36.1 SEC (12.2-14.7)
[2017-06-21 17:20] VITALS: BP 105/70
== END 2017-06-21 17:20 | disposition home or self-care (01) ==
LOC: EDUNIT# 15:39 → ER 15:41
DX: S09.90XA Unspecified injury of head, initial encounter (principal); I25.10 Atherosclerotic heart disease of native coronary artery without angina pectoris; I10 Essential (primary) hypertension; E78.00 Pure hypercholesterolemia, unspecified; Z95.1 Presence of aortocoronary bypass graft; Z87.891 Personal history of nicotine dependence; Z95.2 Presence of prosthetic heart valve; Z79.82 Long term (current) use of aspirin; Z79.01 Long term (current) use of anticoagulants; W19.XXXA Unspecified fall, initial encounter
CPT/HCPCS: 36415; 70450; 85610; 99282

== ENCOUNTER → 2017-08-07 | Outpatient (CLI) | payer MEDICARE, MEDICAID ==
[2017-08-07 15:21] LABS: PROTHROMBIN TIME PATIENT 30.7 SEC (12.2-14.7)
== END ==
LOC: LABNPT 15:01
PROVIDERS: ATTEND Internal Medicine
DX: D64.9 Anemia, unspecified (principal); Z79.01 Long term (current) use of anticoagulants
CPT/HCPCS: 85610

== ENCOUNTER 2017-09-18 15:55 | Emergency (ER) | payer MEDICARE, MEDICAID ==
[~2017-09-18] VITALS: Ht 162.6 cm; Wt 59.0 kg
[2017-09-18] MEDS ORDERED: fentaNYL INJECTION 100 MCG/2 ML AMP IM STA (16:08)
[2017-09-18] MEDS ORDERED: HALOPERIDOL 5 MG/ML (HALDOL) AMP IM ONE (16:15)
[2017-09-18] MEDS ORDERED: ZIPRASIDONE 20 MG (GEODON) CAP PO ONE (16:15)
--- NOTE | 2017-09-18 16:27 | ED Fall/Injury ---
General Chief Complaint: Trauma-Non Activation Stated Complaint: FALL Nursing Triage Note: pt presents to ed for fall from sitting position while in his recliner. pt reports r shoulder pain and collar bone pain. Source: patient Exam Limitations: other (dementia) History of Present Illness Time seen by provider: 16:03 Location Injury Occurred: [facility] Allergies and Home Medications Allergies Coded Allergies: No Known Drug Allergies (Verified , 11/28/07) Home Medications Acetaminophen 500 Mg Tablet, 500 MG PO Q4H PRN for MILD PAIN, #100 Prescribed by: ANI SALDAÑA on 02/27/16 1506 Aspirin 81 Mg Tablet.dr, 81 MG PO DAILY, #30 Prescribed by: DREA THOMAS on 02/16/16 0908 Atorvastatin Calcium 10 Mg Tablet, 10 MG PO HS, #30 Prescribed by: DREA THOMAS on 02/16/16 0908 Cyanocobalamin (Vitamin B-12) 500 Mcg Tablet, 500 MCG PO DAILY, (Reported) Famotidine 20 Mg Tablet, 20 MG PO BID PRN for INDIGESTION, #60 Prescribed by: ANI SALDAÑA on 02/27/16 1506 Finasteride 5 Mg Tablet, 5 MG PO HS, (Reported) Hydrocodone/Acetaminophen 1 Each Tablet, 1 EACH PO Q4H PRN for PAIN-MILD TO MODERATE, #10 Prescribed by: JANKI PIZANO on 02/24/17 1819 [place]-3 Fatty Acids/Fish Oil 1 Each Capsule, 1,200 MG PO DAILY, (Reported) Ondansetron 4 Mg Tab.rapdis, 4 MG PO Q6H PRN for NAUSEA/VOMITING, #30 Prescribed by: ANI SALDAÑA on 02/27/16 1506 Vit C/Vit E/Lutein/Min/[place]-3 1 Each Capsule, 1 CAP PO DAILY, (Reported) Past Rwrlelj-Nnhyst-Eeuiyj Hx Patient Social History Alcohol Use: Denies Use Recreational Drug Use: No Smoking Status: Former Smoker Former Smoker, Quit: Jun 09, 1980 2nd Hand Smoke Exposure: No Recent Foreign Travel: No Contact w/Someone Who Travel: No Recent Infectious Disease Expo: No Recent Hopitalizations: No Physical Abuse: No Sexual Abuse: No Mistreated: No Immunizations Up To Date Date of Pneumonia Vaccine: Jun 09, 2013 Surgeries History of Surgeries: Yes (X4 BYPASSES,VALVE REPLACED,HOLE IN HEART PATCHED, ANEURYSM,T&A,[id number]) Surgeries: Cardiac, CABG, Vascular Surgery Respiratory History of Respiratory Disorde: No Currently Using CPAP: No Currently Using BIPAP: No Cardiovascular History of Cardiac Disorders: Yes Cardiac Disorders: Aneurysm, Angina, Coronary Artery Disease, Endocarditis, High Cholesterol, Hypertension Neurological History of Neurological Disord: Yes Neurological Disorders: Dementia Reproductive System Hx Reproductive Disorders: No Genitourinary Genitourinary Disorders: Benign Prostatic Hyperpl Gastrointestinal History of Gastrointestinal Di: Yes Gastrointestinal Disorders: Ulcer Musculoskeletal History of Musculoskeletal Dis: Yes Musculoskeletal Disorders: Arthritis Endocrine History of Endocrine Disorders: No HEENT HEENT Disorders: Cataract Loss of Vision: Bilateral Hearing Impairment: Hard of Hearing Cancer History of Cancer: No Psychosocial History of Psychiatric Problem: No Suicide Risk Score: 0 Integumentary History of Skin or Integumenta: No Blood Transfusions History of Blood Disorders: Yes (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) Adverse Reaction to a Blood Tr: No Family Medical History Significant Family History: Stroke Physical Exam Vital Signs Vital Sign - Last 12Hours Capillary Refill : Less Than 3 Seconds Progress/Results/Core Measures Results/Orders My Orders Orders - RASHAD FALL Fentanyl Injection (Sublimaze Injection (09/18/17 16:08) Ct Head/Cervical Spine Wo (09/18/17 16:08) Chest 1 View, Ap/Pa Only (09/18/17 16:08) Shoulder, Right, 3 Views (09/18/17 16:08) Pelvis (09/18/17 16:08) Haloperidol Injection (Haldol Injectio (09/18/17 16:15) Ziprasidone Capsule (Geodon Capsule) (09/18/17 16:15) Medications Given in ED Current Medications Medications Dose Ordered Sig/Sandro Route Start Time Stop Time Status Last Admin Dose Admin Ziprasidone 20 mg ONCE ONCE PO 09/18/17 16:15 09/18/17 16:16 DC 09/18/17 16:48 20 MG Vital Signs/I&O Vital Sign - Last 12Hours 09/18/17 09/18/17 16:04 16:04 Temp 98.6 98.6 Pulse 83 83 Resp 20 20 B/P (MAP) 155/87 (109) 155/87 (109) Pulse Ox 97 97 Blood Pressure Mean: 109 Departure Impression Impression: Primary Impression: Right shoulder pain Additional Impression: Fall Disposition: 03 XFER SNF Departure-Patient Inst. Decision time for Depature: 18:57 Referrals: SYED SANTO MD (PCP/Family) Primary Care Physician Patient Instructions: Contusion (DC), Preventing Falls in the Older Adult Add. Discharge Instructions: All discharge instructions reviewed with patient and/or family. Voiced understanding. Continue usual home medications. No activities which may result and head injury for 7 days. Ice pack for 20 minute intervals as needed for pain. Follow-up with Bernardino Reyes APRN this week for recheck. Return to the emergency department for worsened pain, changes in behavior, slurred speech , facial drooping, numbness, weakness, seizure, shortness of air, chest pain, vomiting, or any other concerns. RASHAD FALL Sep 18, 2017 16:27
--- NOTE | 2017-09-18 17:15 | Diagnostic Imaging Report ---
PROCEDURE: CT head and CT cervical spine without contrast. TECHNIQUE: Multiple contiguous axial images were obtained through the brain and cervical spine without the use of intravenous contrast. Sagittal and coronal reformations through the cervical spine were then performed. INDICATION: Fall, head and neck pain. COMPARISON: CT head from 06/21/2017. FINDINGS: Please note the examination is limited due to extensive motion artifact. No meningioma is seen in the right frontal lobe, anteriorly. Multifocal areas of encephalomalacia are seen compatible with prior infarction. There is no obvious large hemorrhage. IMPRESSION: Limited examination due to motion artifact. No obvious large hemorrhage is seen. The cervical spine was not performed due to lack of cooperation. Dictated by: Dictated on workstation # [id number]
--- NOTE | 2017-09-18 18:02 | Diagnostic Imaging Report ---
INDICATION: Fall, pelvic pain COMPARISON: None FINDINGS: Single view of the pelvis demonstrates no fracture or dislocation. Articular surfaces are normal. IMPRESSION: Negative pelvis Dictated by: Dictated on workstation # [id number]
--- NOTE | 2017-09-18 18:03 | Diagnostic Imaging Report ---
INDICATION: Fall, coronary artery disease COMPARISON: 02/24/2017 FINDINGS: Single view of the chest demonstrates cardiac enlargement without pulmonary edema. The lungs are clear. There is no pneumothorax. Sternal wires midline. Prior aortic valve prosthesis is seen. IMPRESSION: Cardiac enlargement without pulmonary edema or infiltrate Dictated by: Dictated on workstation # [id number]
--- NOTE | 2017-09-18 18:04 | Diagnostic Imaging Report ---
INDICATION: Right shoulder pain, fall. COMPARISON: None. EXAMINATION: Five views of the right shoulder were obtained. FINDINGS: No obvious fracture or dislocation. No osseous lesion is seen. The examination is limited due to patient's lack of cooperation. IMPRESSION: No obvious fracture. Dictated by: Dictated on workstation # [id number]
[2017-09-18 19:47] VITALS: BP 145/76
== END 2017-09-18 19:47 ==
LOC: EDUNIT# 15:55 → ER 15:56
DX: I25.10 Atherosclerotic heart disease of native coronary artery without angina pectoris (principal); M25.511 Pain in right shoulder; E78.00 Pure hypercholesterolemia, unspecified; I10 Essential (primary) hypertension; N40.0 Benign prostatic hyperplasia without lower urinary tract symptoms; F03.90 Unspecified dementia, unspecified severity, without behavioral disturbance, psychotic disturbance, mood disturbance, and anxiety; Z79.82 Long term (current) use of aspirin; Z87.19 Personal history of other diseases of the digestive system; Z87.891 Personal history of nicotine dependence; Z95.2 Presence of prosthetic heart valve; Z95.1 Presence of aortocoronary bypass graft; W18.30XA Fall on same level, unspecified, initial encounter
CPT/HCPCS: 70450; 71010; 72125; 72170; 73030; 99284

== ENCOUNTER → 2017-09-19 | Outpatient (CLI) | payer MEDICARE, MEDICAID ==
[2017-09-19 09:56] LABS: PROTHROMBIN TIME PATIENT 22.3 SEC (12.2-14.7)
== END ==
LOC: LABNPT 09:38
PROVIDERS: ATTEND Internal Medicine
DX: Z51.81 Encounter for therapeutic drug level monitoring (principal); Z79.01 Long term (current) use of anticoagulants
CPT/HCPCS: 85610

== ENCOUNTER 2017-09-20 05:51 | Emergency (ER) | payer MEDICARE, MEDICAID ==
[~2017-09-20] VITALS: Ht 162.6 cm; Wt 59.1 kg
[2017-09-20] MEDS ORDERED: ONDANSETRON 4 MG (ZOFRAN) ORAL DISSOLVE TAB ONE (05:55)
[2017-09-20] MEDS ORDERED: LIDOCAINE 1% INJ 50 ML (XYLOCAINE) VIAL ONE (06:03)
[2017-09-20] MEDS ORDERED: TRIM/SULFAMETH 160/800 (SEPTRA DS) TAB PO ONE (06:15)
[2017-09-20] MEDS ORDERED: HYDROcodone/APAP 5 MG/325 MG (LORTAB) TAB PO ONE (06:15)
[2017-09-20] MEDS ORDERED: SULF1TAB35 PO (06:37)
--- NOTE | 2017-09-20 06:38 | ED General ---
General Chief Complaint: Skin/Wound Problems Stated Complaint: INJURY TO RT EAR Nursing Triage Note: right lower ear avulsion Nursing Sepsis Screen: No Definite Risk Source of Information: Caregiver, EMS, Custodial Records Exam Limitations: No Limitations History of Present Illness Time Seen by Provider: 05:54 Allergies and Home Medications Allergies Coded Allergies: No Known Drug Allergies (Verified , 11/28/07) Home Medications Acetaminophen 500 Mg Tablet, 500 MG PO Q4H PRN for MILD PAIN, #100 Prescribed by: ANI SALDAÑA on 02/27/16 1506 Aspirin 81 Mg Tablet.dr, 81 MG PO DAILY, #30 Prescribed by: DREA THOMAS on 02/16/16 0908 Atorvastatin Calcium 10 Mg Tablet, 10 MG PO HS, #30 Prescribed by: DREA THOMAS on 02/16/16 0908 Cyanocobalamin (Vitamin B-12) 500 Mcg Tablet, 500 MCG PO DAILY, (Reported) Famotidine 20 Mg Tablet, 20 MG PO BID PRN for INDIGESTION, #60 Prescribed by: ANI SALDAÑA on 02/27/16 1506 Finasteride 5 Mg Tablet, 5 MG PO HS, (Reported) Hydrocodone/Acetaminophen 1 Each Tablet, 1 EACH PO Q4H PRN for PAIN-MILD TO MODERATE, #10 Prescribed by: JANKI PIZANO on 02/24/17 1819 [place]-3 Fatty Acids/Fish Oil 1 Each Capsule, 1,200 MG PO DAILY, (Reported) Ondansetron 4 Mg Tab.rapdis, 4 MG PO Q6H PRN for NAUSEA/VOMITING, #30 Prescribed by: ANI SALDAÑA on 02/27/16 1506 Vit C/Vit E/Lutein/Min/[place]-3 1 Each Capsule, 1 CAP PO DAILY, (Reported) Past Tftxnfs-Cagiot-Nufrkm Hx Patient Social History Alcohol Use: Denies Use Recreational Drug Use: No Smoking Status: Former Smoker Former Smoker, Quit: Jun 09, 1980 2nd Hand Smoke Exposure: No Recent Foreign Travel: No Contact w/Someone Who Travel: No Recent Infectious Disease Expo: No Recent Hopitalizations: No Immunizations Up To Date Date of Pneumonia Vaccine: Jun 09, 2013 Seasonal Allergies Seasonal Allergies: No Surgeries History of Surgeries: Yes (X4 BYPASSES,VALVE REPLACED,HOLE IN HEART PATCHED, ANEURYSM,T&A,[id number]) Surgeries: Cardiac, CABG, Vascular Surgery Respiratory History of Respiratory Disorde: No Currently Using CPAP: No Currently Using BIPAP: No Cardiovascular History of Cardiac Disorders: Yes Cardiac Disorders: Aneurysm, Angina, Coronary Artery Disease, Endocarditis, High Cholesterol, Hypertension Neurological History of Neurological Disord: Yes Neurological Disorders: Dementia Reproductive System Hx Reproductive Disorders: No Genitourinary Genitourinary Disorders: Benign Prostatic Hyperpl Gastrointestinal History of Gastrointestinal Di: Yes Gastrointestinal Disorders: Ulcer Musculoskeletal History of Musculoskeletal Dis: Yes Musculoskeletal Disorders: Arthritis Endocrine History of Endocrine Disorders: No HEENT HEENT Disorders: Cataract Loss of Vision: Bilateral Hearing Impairment: Hard of Hearing Cancer History of Cancer: No Psychosocial History of Psychiatric Problem: No Integumentary History of Skin or Integumenta: No Blood Transfusions History of Blood Disorders: Yes (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) Adverse Reaction to a Blood Tr: No Family Medical History Significant Family History: Stroke Physical Exam Vital Signs Vital Sign - Last 12Hours 09/20/17 05:58 Temp 98.0 Pulse 72 Resp 18 B/P (MAP) 96/58 (71) Pulse Ox 95 O2 Delivery Room Air Capillary Refill : Less Than 3 Seconds Progress/Results/Core Measures Suspected Sepsis Recent Fever Within 48 Hours: No Infection Criteria Present: None New/Unexplained Altered Menta: No Sepsis Screen: No Definite Risk Sepsis Diagnosis: SIRS Temperature:98.0 Pulse: 72 Respiratory Rate: 18 Blood Pressure 96 /58 Mean: 71 Results/Orders My Orders Orders - MICKY LEE MD Ondansetron Oral Dissolve Tab (Zofran (09/20/17 05:55) Lidocaine 1% (Xylocaine 1%) (09/20/17 06:03) Hydrocodone/Apap 5/325 Tablet (Lortab 5 (09/20/17 06:15) Sulfamethoxazole/Trimet Ds Tab (Bactrim (09/20/17 06:15) Medications Given in ED Current Medications Medications Dose Ordered Sig/Sandro Route Start Time Stop Time Status Last Admin Dose Admin Acetaminophen/ Hydrocodone Bitart 1 tab ONCE ONCE PO 09/20/17 06:15 09/20/17 06:16 DC 09/20/17 06:12 1 TAB Lidocaine HCl 50 ml STK-MED ONCE .ROUTE 09/20/17 06:03 09/20/17 06:06 DC 09/20/17 06:08 50 ML Ondansetron HCl 4 mg STK-MED ONCE .ROUTE 09/20/17 05:55 09/20/17 05:57 DC 09/20/17 06:03 4 MG Trimethoprim/ Sulfamethoxazole 1 ea ONCE ONCE PO 09/20/17 06:15 09/20/17 06:16 DC 09/20/17 06:13 1 EA Vital Signs/I&O Vital Sign - Last 12Hours 09/20/17 09/20/17 05:58 06:12 Temp 98.0 98.0 Pulse 72 Resp 18 B/P (MAP) 96/58 (71) Pulse Ox 95 O2 Delivery Room Air Capillary Refill : Less Than 3 Seconds Blood Pressure Mean: 71 Departure Impression Impression: Primary Impression: Laceration of ear lobe Qualified Codes: S01.311A - Laceration without foreign body of right ear, initial encounter Disposition: HOME, SELF-CARE Condition: Improved Departure-Patient Inst. Decision time for Depature: 06:30 Referrals: SYED SANTO MD (PCP/Family) Primary Care Physician Patient Instructions: Laceration Repair With Stitches (DC) Add. Discharge Instructions: Keep the wound clean and dry except for normal bathing. Monitor for signs of infection such as increasing redness, puslike drainage, fever, etc. Return to care promptly. Noticed the symptoms. Complete antibiotics as prescribed. Remove sutures in 7-10 days. All discharge instructions reviewed with patient and/or family. Voiced understanding. Scripts Sulfamethoxazole/Trimethoprim (Bactrim Ds Tablet) 1 Each Tablet 1 EACH PO BID, #14 TAB Prov: MICKY LEE MD 09/20/17 MICKY LEE MD Sep 20, 2017 06:38
[2017-09-20 08:35] VITALS: BP 90/62
== END 2017-09-20 08:35 | disposition home or self-care (01) ==
LOC: EDUNIT# 05:51 → ER 05:54
DX: S01.311A Laceration without foreign body of right ear, initial encounter (principal); I25.10 Atherosclerotic heart disease of native coronary artery without angina pectoris; E78.00 Pure hypercholesterolemia, unspecified; I10 Essential (primary) hypertension; F03.90 Unspecified dementia, unspecified severity, without behavioral disturbance, psychotic disturbance, mood disturbance, and anxiety; Z79.02 Long term (current) use of antithrombotics/antiplatelets; Z79.82 Long term (current) use of aspirin; Z87.891 Personal history of nicotine dependence; Z95.1 Presence of aortocoronary bypass graft; Z95.2 Presence of prosthetic heart valve; Z86.73 Personal history of transient ischemic attack (TIA), and cerebral infarction without residual deficits; X58.XXXA Exposure to other specified factors, initial encounter
CPT/HCPCS: 12052

== ENCOUNTER 2017-09-23 03:41 | Emergency (ER) | payer MEDICARE, MEDICAID ==
[~2017-09-23] VITALS: Ht 165.1 cm; Wt 63.5 kg
[2017-09-23] MEDS ORDERED: LACTATED RINGERS 1,000 ML IV ONE ×2 (03:47→04:30)
--- OUTSIDE RECORDS SUMMARY | 2017-09-23 03:52 | XMS REPORT | Continuity of Care Document ---
Author Author [facility] Organization [facility] Address Unknown Phone Unavailable Allergies Active Description Code Type Severity Reaction Onset Reported/Identified Relationship to Patient Clinical Status Yes No Known Drug Allergies [id number] Drug Allergy Unknown N/A 11/28/2007 Medications There is no data. Problems Date Dx Coded Attending Type Code Diagnosis Diagnosed By 08/27/2009 Ot 280.9 08/27/2009 Ot 281.1 08/27/2009 Ot 787.91 08/27/2009 Ot 790.92 08/27/2009 Ot V43.3 08/27/2009 Ot V58.61 08/27/2009 Ot V58.69 12/10/2009 Ot 280.9 12/10/2009 Ot 281.1 12/10/2009 Ot 569.3 12/10/2009 Ot 787.91 12/10/2009 Ot V43.3 12/10/2009 Ot V58.61 12/10/2009 Ot V58.69 03/29/2010 Ot 280.9 03/29/2010 Ot 281.1 03/29/2010 Ot 787.91 03/29/2010 Ot V43.3 03/29/2010 Ot V58.61 03/29/2010 Ot V58.69 08/14/2010 Ot 250.00 08/14/2010 Ot 272.0 08/14/2010 Ot 272.1 08/14/2010 Ot 276.8 08/14/2010 Ot 285.1 08/14/2010 Ot 292.81 08/14/2010 Ot 308.9 08/14/2010 Ot 403.90 08/14/2010 Ot 414.00 08/14/2010 Ot 427.89 08/14/2010 Ot 433.10 08/14/2010 Ot 560.1 08/14/2010 Ot 560.81 08/14/2010 Ot 585.3 08/14/2010 Ot 780.79 08/14/2010 Ot 783.21 08/14/2010 Ot 790.92 08/14/2010 Ot 997.4 08/14/2010 Ot E934.2 08/14/2010 Ot E935.2 08/14/2010 Ot V12.71 08/14/2010 Ot V12.79 08/14/2010 Ot V43.3 08/14/2010 Ot V45.72 08/14/2010 Ot V45.81 08/14/2010 Ot V57.1 08/14/2010 Ot V57.21 08/14/2010 Ot V58.61 08/19/2010 Ot 250.00 08/19/2010 Ot 272.0 08/19/2010 Ot 276.8 08/19/2010 Ot 285.1 08/19/2010 Ot 403.90 08/19/2010 Ot 414.00 08/19/2010 Ot 433.10 08/19/2010 Ot 560.1 08/19/2010 Ot 585.3 08/19/2010 Ot 707.03 08/19/2010 Ot 707.22 08/19/2010 Ot 790.92 08/19/2010 Ot 997.4 08/19/2010 Ot V12.71 08/19/2010 Ot V12.79 08/19/2010 Ot V43.3 08/19/2010 Ot V45.72 08/19/2010 Ot V45.81 08/19/2010 Ot V58.61 08/19/2010 Ot V58.75 09/23/2010 Ot 280.9 IRON DEFIC ANEMIA NOS 09/23/2010 Ot 281.1 B12 DEFIC ANEMIA NEC 09/23/2010 Ot 787.91 DIARRHEA 09/23/2010 Ot V43.3 HEART VALVE REPLAC NEC 09/23/2010 Ot V58.61 ANTICOAGULANTS,LT,CURRENT USE 09/23/2010 Ot V58.69 OTH MED,LT, CURRENT USE 12/24/2010 Ot 280.9 IRON DEFIC ANEMIA NOS 12/24/2010 Ot 281.1 B12 DEFIC ANEMIA NEC 12/24/2010 Ot 787.91 DIARRHEA 12/24/2010 Ot V43.3 HEART VALVE REPLAC NEC 12/24/2010 Ot V58.61 ANTICOAGULANTS,LT,CURRENT USE 12/24/2010 Ot V58.69 OTH MED,LT, CURRENT USE 03/28/2011 Ot 280.9 IRON DEFIC ANEMIA NOS 03/28/2011 Ot 281.1 B12 DEFIC ANEMIA NEC 03/28/2011 Ot V43.3 HEART VALVE REPLAC NEC 03/28/2011 Ot V58.61 ANTICOAGULANTS,LT,CURRENT USE 03/28/2011 Ot V58.69 OTH MED,LT, CURRENT USE 08/15/2011 Ot 280.9 IRON DEFIC ANEMIA NOS 08/15/2011 Ot 281.1 B12 DEFIC ANEMIA NEC 08/15/2011 Ot V43.3 HEART VALVE REPLAC NEC 08/15/2011 Ot V58.61 ANTICOAGULANTS,LT,CURRENT USE 08/15/2011 Ot V58.69 OTH MED,LT, CURRENT USE 11/21/2011 Ot 280.9 IRON DEFIC ANEMIA NOS 11/21/2011 Ot 281.1 B12 DEFIC ANEMIA NEC 11/21/2011 Ot V43.3 HEART VALVE REPLAC NEC 11/21/2011 Ot V58.61 ANTICOAGULANTS,LT,CURRENT USE 11/21/2011 Ot V58.69 OTH MED,LT, CURRENT USE 02/29/2012 Ot 280.9 IRON DEFIC ANEMIA NOS 02/29/2012 Ot 281.1 B12 DEFIC ANEMIA NEC 02/29/2012 Ot V43.3 HEART VALVE REPLAC NEC 02/29/2012 Ot V58.61 ANTICOAGULANTS,LT,CURRENT USE 02/29/2012 Ot V58.69 OTH MED,LT, CURRENT USE 06/10/2012 Ot 272.4 HYPERLIPIDEMIA NEC/NOS 06/10/2012 Ot 285.9 ANEMIA NOS 06/10/2012 Ot 403.90 HYPTNSV CHR KID DIS, UNSPEC, W CHR KD ST 06/10/2012 Ot 414.01 CORONARY ATHEROSCLEROSIS OF [place] CORON 06/10/2012 Ot 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 06/10/2012 Ot 433.10 CAROTID ARTERY OCCLUSION W O CEREBRAL IN 06/10/2012 Ot 440.0 AORTIC ATHEROSCLEROSIS 06/10/2012 Ot 585.9 CHRONIC KIDNEY DISEASE, UNSPECIFIED 06/10/2012 Ot 794.30 ABN CARDIOVASC STUDY NOS 06/10/2012 Ot V43.3 HEART VALVE REPLAC NEC 06/10/2012 Ot V58.61 ANTICOAGULANTS,LT,CURRENT USE 06/10/2012 Ot V58.69 OTH MED,LT, CURRENT USE 06/14/2012 Ot 280.9 IRON DEFIC ANEMIA NOS 06/14/2012 Ot 281.1 B12 DEFIC ANEMIA NEC 06/14/2012 Ot V43.3 HEART VALVE REPLAC NEC 06/14/2012 Ot V58.61 ANTICOAGULANTS,LT,CURRENT USE 06/14/2012 Ot V58.69 OTH MED,LT, CURRENT USE 08/09/2014 FÁTIMA MATHEWS Ot 272.4 08/09/2014 FÁTIMA MATHEWS Ot 401.9 08/09/2014 FÁTIMA MATHEWS Ot 414.00 08/09/2014 FÁTIMA MATHEWS Ot 428.0 09/16/2014 LICO, JAVAD Smith Ot 272.4 09/16/2014 LICO, BOBAN N Ot 280.9 09/16/2014 LICO, BOBAN N Ot 281.1 09/16/2014 LICO, BOBAN N Ot 285.21 09/16/2014 LICO, BOBAN N Ot 403.90 09/16/2014 LICO, BOBAN N Ot 414.00 09/16/2014 LICO, BOBAN N Ot 585.3 09/16/2014 LICO, BOBAN N Ot V43.3 09/16/2014 LICO, BOBAN N Ot V58.61 09/16/2014 LICO, BOBAN N Ot V58.69 10/24/2014 LICO, BOBAN N Ot 272.4 10/24/2014 LICO, BOBAN N Ot 280.9 10/24/2014 LICO, BOBAN N Ot 281.1 10/24/2014 LICO, BOBAN N Ot 285.21 10/24/2014 LICO, BOBAN N Ot 403.90 10/24/2014 LICO, BOBAN N Ot 414.00 10/24/2014 LICO, BOBAN N Ot 585.3 10/24/2014 LICO, BOBAN N Ot V43.3 10/24/2014 LICO, BOBAN N Ot V58.61 10/24/2014 LICO, BOBAN N Ot V58.69 10/25/2014 LICO, BOBAN N Ot 272.4 10/25/2014 LICO, BOBAN N Ot 280.9 10/25/2014 LICO, BOBAN N Ot 281.1 10/25/2014 LICO, BOBAN N Ot 285.21 10/25/2014 LICO, BOBAN N Ot 403.90 10/25/2014 LICO, BOBAN N Ot 414.00 10/25/2014 LICO, BOBAN N Ot 585.3 10/25/2014 LICO, BOBAN N Ot V43.3 10/25/2014 LICO, BOBAN N Ot V58.61 10/25/2014 LICO, BOBAN N Ot V58.69 11/21/2014 LICO, BOBAN N Ot 272.4 11/21/2014 LICO, BOBAN N Ot 280.9 11/21/2014 LICO, BOBAN N Ot 281.1 11/21/2014 LICO, BOBAN N Ot 285.21 11/21/2014 LICO, BOBAN N Ot 403.90 11/21/2014 LICO, BOBAN N Ot 414.00 11/21/2014 LICO, BOBAN N Ot 585.3 11/21/2014 LICO, BOBJOSEPH N Ot V43.3 11/21/2014 LICO, BOBAN N Ot V58.61 11/21/2014 LICO, BOBAN N Ot V58.69 11/24/2014 LICO, BOBAN N Ot 272.4 HYPERLIPIDEMIA NEC/NOS 11/24/2014 LICO, BOBAN N Ot 280.9 IRON DEFIC ANEMIA NOS 11/24/2014 LICO, BOBAN N Ot 281.1 B12 DEFIC ANEMIA NEC 11/24/2014 LICO, BOBAN N Ot 285.21 ANEMIA IN CHRONIC KIDNEY DISEASE 11/24/2014 LICO, BOBAN N Ot 403.90 HYPTNSV CHR KID DIS, UNSPEC, W CHR KD ST 11/24/2014 LICO, BOBAN N Ot 414.00 CORON ATHEROSCLER NOS TYPE VESSEL, NATIV 11/24/2014 LICO, BOBAN N Ot 585.3 CHRONIC KIDNEY DISEASE, STAGE III (MODER 11/24/2014 LICO, BOBAN N Ot V43.3 HEART VALVE REPLAC NEC 11/24/2014 LICO, BOBAN N Ot V58.61 ANTICOAGULANTS,LT,CURRENT USE 11/24/2014 LICO, BOBAN N Ot V58.69 OTH MED,LT,CURRENT USE 12/16/2014 LICO, BOBAN N Ot 272.4 12/16/2014 LICO, BOBAN N Ot 280.9 12/16/2014 LICO, BOBAN N Ot 281.1 12/16/2014 LICO, BOBAN N Ot 285.21 12/16/2014 LICO, BOBAN N Ot 403.90 12/16/2014 LICO, BOBAN N Ot 414.00 12/16/2014 LICO, BOBAN N Ot 585.3 12/16/2014 LICO, BOBAN N Ot V43.3 12/16/2014 LICO, BOBAN N Ot V58.61 12/16/2014 LICO, BOBAN N Ot V58.69 12/16/2014 LICO, BOBAN N Ot 272.4 12/16/2014 LICO, BOBAN N Ot 280.9 12/16/2014 LICO, BOBAN N Ot 281.1 12/16/2014 LICO, BOBAN N Ot 285.21 12/16/2014 LICO, BOBAN N Ot 403.90 12/16/2014 LICO, BOBAN N Ot 414.00 12/16/2014 LICO, BOBAN N Ot 585.3 12/16/2014 LICO, BOBAN N Ot V43.3 12/16/2014 LICO, BOBAN N Ot V58.61 12/16/2014 LICO, BOBAN N Ot V58.69 12/16/2014 LICO, BOBAN N Ot 272.4 12/16/2014 LICO, BOBAN N Ot 280.9 12/16/2014 LICO, BOBAN N Ot 281.1 12/16/2014 LICO, BOBAN N Ot 285.21 12/16/2014 LICO, BOBAN N Ot 403.90 12/16/2014 LICO, BOBAN N Ot 414.00 12/16/2014 LICO, BOBAN N Ot 585.3 12/16/2014 LICO, BOBAN N Ot V43.3 12/16/2014 LICO, BOBAN N Ot V58.61 12/16/2014 LICO, BOBAN N Ot V58.69 12/16/2014 LICO, BOBAN N Ot 272.4 12/16/2014 LICO, BOBAN N Ot 280.9 12/16/2014 LICO, BOBAN N Ot 281.1 12/16/2014 LICO, BOBAN N Ot 285.21 12/16/2014 LICO, BOBAN N Ot 403.90 12/16/2014 LICO, BOBAN N Ot 414.00 12/16/2014 LICO, BOBAN N Ot 585.3 12/16/2014 LICO, JAVAD N Ot V43.3 12/16/2014 LICO, BOBAN N Ot V58.61 12/16/2014 LICO, BOBAN N Ot V58.69 12/17/2014 LICO, RAKELAN N Ot 272.4 12/17/2014 LICO, RAKELAN N Ot 280.9 12/17/2014 LICO, BOBAN N Ot 281.1 12/17/2014 LICO, BOBAN N Ot 285.21 12/17/2014 LICO, RAKELAN N Ot 403.90 12/17/2014 LICO, RAKELAN N Ot 414.00 12/17/2014 LICO, RAEKLAN N Ot 585.3 12/17/2014 LICO, JAVAD N Ot V43.3 12/17/2014 LICO, JAVAD N Ot V58.61 12/17/2014 LICO, JAVAD N Ot V58.69 01/22/2015 LICO, RAKELAN N Ot 272.4 01/22/2015 LICO, JAVAD N Ot 280.9 01/22/2015 LICO, JAVAD N Ot 281.1 01/22/2015 LICO, JAVAD N Ot 285.21 01/22/2015 LICO, RAKELAN N Ot 403.90 01/22/2015 LICO, RAKELAN N Ot 414.00 01/22/2015 LICO, JAVAD N Ot 585.3 01/22/2015 LICO, JAVAD N Ot V43.3 01/22/2015 LICO, JAVAD N Ot V58.61 01/22/2015 LICO, JAVAD N Ot V58.69 02/10/2015 Ot V43.3 02/10/2015 Ot V67.9 02/10/2015 Ot 401.9 02/10/2015 Ot 428.0 02/10/2015 Ot 401.9 02/10/2015 Ot 414.00 02/10/2015 LICO, RAKELAN N Ot 280.9 02/10/2015 LICO, RAKELAN N Ot 281.1 02/10/2015 LICO, JAVAD N Ot V43.3 02/10/2015 LICO, RAKELAN N Ot V58.61 02/10/2015 LICO, RAKELAN N Ot V58.69 02/10/2015 Ot 280.9 02/10/2015 Ot 281.1 02/10/2015 Ot V43.3 02/10/2015 Ot V58.61 02/10/2015 Ot V58.69 02/10/2015 DANIELITO PERSON, ENID Ellison Ot 272.4 02/10/2015 DANIELITO PERSON, ENID Ellison Ot 397.0 02/10/2015 DANIELITO PERSON, ENID Ellison Ot 401.9 02/10/2015 DANIELITO PERSON, ENID Ellison Ot 414.00 02/10/2015 DANIELITO PERSON, ENID Ellison Ot 424.0 02/10/2015 DANIELITO PERSON, ENID Ellison Ot 428.0 02/10/2015 DANIELITO PERSON, ENID Ellison Ot 429.3 02/10/2015 DANIELITO PERSON, ENID Ellison Ot V43.3 02/10/2015 LICO, BOBAN N Ot 272.4 02/10/2015 LICO, BOBAN N Ot 280.9 02/10/2015 LICO, BOBAN N Ot 281.1 02/10/2015 LICO, BOBAN N Ot 285.21 02/10/2015 LICO, BOBAN N Ot 403.90 02/10/2015 LICO, BOBAN N Ot 414.00 02/10/2015 LICO, BOBAN N Ot 585.3 02/10/2015 LICO, BOBAN N Ot V43.3 02/10/2015 LICO, BOBAN N Ot V58.61 02/10/2015 LICO, BOBAN N Ot V58.69 02/10/2015 ARNOLDO PARRISH S PROCESS COACH Ot 272.4 02/10/2015 PARRISHARNOLDO Kyle S PROCESS COACH Ot 280.9 02/10/2015 PARRISHARNOLDO Kyle S PROCESS COACH Ot 281.1 02/10/2015 PARRISHARNOLDO Kyle S PROCESS COACH Ot 285.21 02/10/2015 PARRISHMANASAH S PROCESS COACH Ot 403.90 02/10/2015 PARRISH, HILAH S PROCESS COACH Ot 414.00 02/10/2015 ARNOLDO PARRISH S PROCESS COACH Ot 585.3 02/10/2015 PARRISHARNOLDO Kyle S PROCESS COACH Ot V43.3 02/10/2015 PARRISHARNOLDO Kyle S PROCESS COACH Ot V58.61 02/10/2015 PARRISHARNOLDO Kyle S PROCESS COACH Ot V58.69 02/10/2015 JOYCE-BARNEY PA, FÁTIMA K Ot 272.4 02/10/2015 JOYCE-BARNEY PA, FÁTIMA K Ot 401.9 02/10/2015 JOYCE-BARNEY PA, FÁTIMA K Ot 414.00 02/10/2015 JOYCE-BARNEY PA, FÁTIMA K Ot 428.0 02/10/2015 JOYCE-BARNEY PA, FÁTIMA K Ot 272.4 02/10/2015 JOYCE-BARNEY PA, FÁTIMA K Ot 401.9 02/10/2015 JOYCE-BARNEY PA, FÁTIMA K Ot 414.00 02/10/2015 JOYCE-BARNEY PA, FÁTIMA K Ot 428.0 02/10/2015 LICO, BOBAN N Ot 272.4 02/10/2015 LICO, BOBAN N Ot 280.9 02/10/2015 LICO, BOBAN N Ot 281.1 02/10/2015 LICO, BOBAN N Ot 285.21 02/10/2015 LICO, BOBAN N Ot 403.90 02/10/2015 LICO, BOBAN N Ot 414.00 02/10/2015 LICO, BOBAN N Ot 585.3 02/10/2015 LICO, BOBAN N Ot V43.3 02/10/2015 LICO, BOBAN N Ot V58.61 02/10/2015 LICO, BOBAN N Ot V58.69 02/10/2015 LICO, BOBAN N Ot 272.4 02/10/2015 LICO, BOBAN N Ot 280.9 02/10/2015 LICO, BOBAN N Ot 281.1 02/10/2015 LICO, BOBAN N Ot 285.21 02/10/2015 LICO, BOBAN N Ot 403.90 02/10/2015 LICO, BOBAN N Ot 414.00 02/10/2015 LICO, BOBAN N Ot 585.3 02/10/2015 LICO, BOBAN N Ot V43.3 02/10/2015 LICO, BOBAN N Ot V58.61 02/10/2015 LICO, BOBAN N Ot V58.69 02/14/2015 LICO, BOBAN N Ot 272.4 02/14/2015 LICO, BOBAN N Ot 280.9 02/14/2015 LICO, BOBAN N Ot 281.1 02/14/2015 JAVAD BARFIELD N Ot 285.21 02/14/2015 LICO JAVAD N Ot 403.90 02/14/2015 LICO JAVAD N Ot 414.00 02/14/2015 RAKEL BARFIELDJOSEPH N Ot 585.3 02/14/2015 LICO JAVAD N Ot V43.3 02/14/2015 LICO JAVAD N Ot V58.61 02/14/2015 LICO JAVAD N Ot V58.69 03/06/2015 PARRISHARNOLDO Kyle S PROCESS COACH Ot 280.9 03/06/2015 PARRISHMANASAH S PROCESS COACH Ot 281.1 03/06/2015 PARRISHARNOLDO S PROCESS COACH Ot 533.90 03/06/2015 ARNOLDO PARRISH S PROCESS COACH Ot V43.3 03/06/2015 ARNOLDO PARRISH S PROCESS COACH Ot V58.61 03/06/2015 ARNOLDO PARRISH S PROCESS COACH Ot V58.69 03/16/2015 LICO JAVAD N Ot 272.4 HYPERLIPIDEMIA NEC/NOS 03/16/2015 LICOJAVAD N Ot 280.9 IRON DEFIC ANEMIA NOS 03/16/2015 LICO JAVAD N Ot 281.1 B12 DEFIC ANEMIA NEC 03/16/2015 LICO JAVAD N Ot 285.21 ANEMIA IN CHRONIC KIDNEY DISEASE 03/16/2015 LICO JAVAD N Ot 403.90 HYPTNSV CHR KID DIS, UNSPEC, W CHR KD ST 03/16/2015 RAKEL BARFIELDJOSEPH N Ot 414.00 CORON ATHEROSCLER NOS TYPE VESSEL, NATIV 03/16/2015 LICO JAVAD N Ot 585.3 CHRONIC KIDNEY DISEASE, STAGE III (MODER 03/16/2015 LICOJAVAD N Ot V43.3 HEART VALVE REPLAC NEC 03/16/2015 LICO JAVAD N Ot V58.61 ANTICOAGULANTS,LT,CURRENT USE 03/16/2015 LICO JVAAD N Ot V58.69 OTH MED,LT,CURRENT USE 03/18/2015 ARNOLDO PARRISH S PROCESS COACH Ot 280.9 03/18/2015 PARRISHARNOLDO S PROCESS COACH Ot 281.1 03/18/2015 PARRISHARNOLDO Kyle S PROCESS COACH Ot 533.90 03/18/2015 PARRISHARNOLDO S PROCESS COACH Ot V43.3 03/18/2015 ARNOLDO PARRISH S PROCESS COACH Ot V58.61 03/18/2015 ARNOLDO PARRISH PROCESS COACH Ot V58.69 04/08/2015 LICO, BOBAN N Ot 272.4 04/08/2015 LICO, BOBAN N Ot 280.9 04/08/2015 LICO, BOBAN N Ot 281.1 04/08/2015 LICO, BOBAN N Ot 285.21 04/08/2015 LICO, BOBAN N Ot 403.90 04/08/2015 LICO, BOBAN N Ot 414.00 04/08/2015 LICO, BOBAN N Ot 585.3 04/08/2015 LICO, BOBAN N Ot V43.3 04/08/2015 LICO, BOBAN N Ot V58.61 04/08/2015 LICO, BOBAN N Ot V58.69 04/08/2015 LICO, BOBAN N Ot 272.4 04/08/2015 LICO, BOBAN N Ot 280.9 04/08/2015 LICO, BOBAN N Ot 281.1 04/08/2015 LICO, BOBAN N Ot 285.21 04/08/2015 LICO, BOBAN N Ot 403.90 04/08/2015 LICO, BOBAN N Ot 414.00 04/08/2015 LICO, BOBAN N Ot 585.3 04/08/2015 LICO, BOBAN N Ot V43.3 04/08/2015 LICO, BOBAN N Ot V58.61 04/08/2015 LICO, BOBAN N Ot V58.69 04/09/2015 LICO, BOBAN N Ot 272.4 04/09/2015 LICO, BOBAN N Ot 280.9 04/09/2015 LICO, BOBAN N Ot 281.1 04/09/2015 LICO, BOBAN N Ot 285.21 04/09/2015 LICO, BOBAN N Ot 403.90 04/09/2015 LICO, BOBAN N Ot 414.00 04/09/2015 LICO, BOBAN N Ot 585.3 04/09/2015 LICO, BOBAN N Ot V43.3 04/09/2015 LICO, BOBAN N Ot V58.61 04/09/2015 LICO, BOBAN N Ot V58.69 05/20/2015 LICO, BOBAN N Ot 272.4 05/20/2015 LICO, BOBAN N Ot 280.9 05/20/2015 LICO, BOBAN N Ot 281.1 05/20/2015 LICO, BOBAN N Ot 285.21 05/20/2015 LICO, BOBAN N Ot 403.90 05/20/2015 LICO, BOBAN N Ot 414.00 05/20/2015 LICO, BOBAN N Ot 585.3 05/20/2015 LICO, BOBAN N Ot V43.3 05/20/2015 LICO, BOBAN N Ot V58.61 05/20/2015 LICO, BOBAN N Ot V58.69 05/23/2015 LICO, BOBAN N Ot 272.4 05/23/2015 LICO, BOBAN N Ot 280.9 05/23/2015 LICO, BOBAN N Ot 281.1 05/23/2015 LICO, BOBAN N Ot 285.21 05/23/2015 LICO, BOBAN N Ot 403.90 05/23/2015 LICO, BOBAN N Ot 414.00 05/23/2015 LICO, BOBAN N Ot 585.3 05/23/2015 LICO, BOBAN N Ot V43.3 05/23/2015 LICO, BOBAN N Ot V58.61 05/23/2015 LICO, BOBAN N Ot V58.69 06/25/2015 LICO, BOBAN N Ot 272.4 HYPERLIPIDEMIA NEC/NOS 06/25/2015 LICO, BOBAN N Ot 280.9 IRON DEFIC ANEMIA NOS 06/25/2015 LICO, BOBAN N Ot 281.1 B12 DEFIC ANEMIA NEC 06/25/2015 LICO, BOBAN N Ot 285.21 ANEMIA IN CHRONIC KIDNEY DISEASE 06/25/2015 LICO, BOBAN N Ot 403.90 HYPTNSV CHR KID DIS, UNSPEC, W CHR KD ST 06/25/2015 LICO, BOBAN N Ot 414.00 CORON ATHEROSCLER NOS TYPE VESSEL, NATIV 06/25/2015 LICO, BOBAN N Ot 585.3 CHRONIC KIDNEY DISEASE, STAGE III (MODER 06/25/2015 LICO, BOBAN N Ot V43.3 HEART VALVE REPLAC NEC 06/25/2015 LICO, BOBAN N Ot V58.61 ANTICOAGULANTS,LT,CURRENT USE 06/25/2015 LICORAKELAN N Ot V58.69 OT MED,LT,CURRENT USE 08/04/2015 LICO, BOBAN N Ot 272.4 08/04/2015 LICO, BOBAN N Ot 280.9 08/04/2015 LICO, BOBAN N Ot 281.1 08/04/2015 LICO, BOBAN N Ot 285.21 08/04/2015 LICO, BOBAN N Ot 403.90 08/04/2015 LICO, BOBAN N Ot 414.00 08/04/2015 LICO, BOBAN N Ot 585.3 08/04/2015 LICO, BOBAN N Ot V43.3 08/04/2015 LICO, BOBAN N Ot V58.61 08/04/2015 LICO, BOBAN N Ot V58.69 08/25/2015 ARNOLDO PARRISH PROCESS COACH Ot D50.9 08/25/2015 ARNOLDO PARRISH PROCESS COACH Ot D51.8 08/25/2015 ARNOLDO PARRISH S PROCESS COACH Ot D63.1 08/25/2015 ARNOLDO PARRISH S PROCESS COACH Ot E78.5 08/25/2015 ARNOLDO PARRISH S PROCESS COACH Ot I12.9 08/25/2015 ARNOLDO PARRISH S PROCESS COACH Ot I25.10 08/25/2015 ARNOLDO PARRISH S PROCESS COACH Ot N18.3 08/25/2015 ARNOLDO PARRISH PROCESS COACH Ot Z79.01 08/25/2015 ARNOLDO PARRISH PROCESS COACH Ot Z79.899 08/25/2015 ARNOLDO PARRISH PROCESS COACH Ot Z95.2 08/25/2015 LICO, BOBAN N Ot D50.9 08/25/2015 LICO, BOBAN N Ot D51.8 08/25/2015 LICO, BOBAN N Ot D63.1 08/25/2015 LICO, BOBAN N Ot E78.5 08/25/2015 LICO, BOBAN N Ot I12.9 08/25/2015 LICO, BOBAN N Ot I25.10 08/25/2015 LICO, BOBAN N Ot N18.3 08/25/2015 LICO, BOBAN N Ot Z79.01 08/25/2015 LICO, BOBAN N Ot Z79.899 08/25/2015 LICO, BOBAN N Ot Z95.2 08/28/2015 PARRISHARNOLDO Kyle S PROCESS COACH Ot D50.9 08/28/2015 PARRISHARNOLDO Kyle S PROCESS COACH Ot D51.8 08/28/2015 PARRISHARNOLDO Kyle S PROCESS COACH Ot D63.1 08/28/2015 PARRISHARNOLDO Kyle S PROCESS COACH Ot E78.5 08/28/2015 PARRISHMANASAH S PROCESS COACH Ot I12.9 08/28/2015 PARRISH, ARNOLDO S PROCESS COACH Ot I25.10 08/28/2015 PARRISHARNOLDO Kyle S PROCESS COACH Ot N18.3 08/28/2015 PARRISHARNOLDO Kyle S PROCESS COACH Ot Z79.01 08/28/2015 PARRISHARNOLDO Kyle S PROCESS COACH Ot Z79.899 08/28/2015 PARRISHARNOLDO Kyle S PROCESS COACH Ot Z95.2 08/28/2015 LICO RAKELJOSEPH N Ot D50.9 08/28/2015 LICOJAVAD N Ot D51.8 08/28/2015 LICO BOBAN N Ot D63.1 08/28/2015 LICO, BOBAN N Ot E78.5 08/28/2015 LICO BOBJOSEPH N Ot I12.9 08/28/2015 LICO BOBJOSEPH N Ot I25.10 08/28/2015 LICO, BOBAN N Ot N18.3 08/28/2015 LICO, BOBAN N Ot Z79.01 08/28/2015 LICO, BOBAN N Ot Z79.899 08/28/2015 LICO, BOBAN N Ot Z95.2 09/28/2015 LICO, BOBAN N Ot D50.9 IRON DEFICIENCY ANEMIA, UNSPECIFIED 09/28/2015 LICO, BOBAN N Ot D51.8 OTHER VITAMIN B12 DEFICIENCY ANEMIAS 09/28/2015 JAVAD BARFIELD N Ot D63.1 ANEMIA IN CHRONIC KIDNEY DISEASE 09/28/2015 LICOJAVAD ASHBY N Ot E78.5 HYPERLIPIDEMIA, UNSPECIFIED 09/28/2015 LICOJAVAD ASHBY N Ot I12.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 09/28/2015 JAVAD BARFIELD N Ot I25.10 ATHSCL HEART DISEASE OF [place] CORONARY 09/28/2015 LICO, BOBAN N Ot N18.3 CHRONIC KIDNEY DISEASE, STAGE 3 (MODERAT 09/28/2015 LICO, BOBAN N Ot Z79.01 [facility] (CURRENT) USE OF ANTICOAGULANT 09/28/2015 LICO, BOBAN N Ot Z79.899 OTHER MEDICAL INSTRUCTOR (CURRENT) DRUG THERAPY 09/28/2015 LICO, BOBAN N Ot Z95.2 PRESENCE OF PROSTHETIC HEART VALVE 10/20/2015 LICO, BOBAN N Ot D50.9 10/20/2015 LICO, BOBAN N Ot D51.8 10/20/2015 LICO, BOBAN N Ot D63.1 10/20/2015 LICO, BOBAN N Ot E78.5 10/20/2015 LICO, BOBAN N Ot I12.9 10/20/2015 LICO, BOBAN N Ot I25.10 10/20/2015 LICO, BOBAN N Ot N18.3 10/20/2015 LICO, BOBAN N Ot Z79.01 10/20/2015 LICO, BOBAN N Ot Z79.899 10/20/2015 LICO, BOBAN N Ot Z95.2 10/21/2015 LICO, BOBAN N Ot D50.9 10/21/2015 LICO, BOBAN N Ot D51.8 10/21/2015 LICO, BOBAN N Ot D63.1 10/21/2015 LICO, BOBAN N Ot E78.5 10/21/2015 LICO, BOBAN N Ot I12.9 10/21/2015 LICO, BOBAN N Ot I25.10 10/21/2015 LICO, BOBAN N Ot N18.3 10/21/2015 LICO, BOBAN N Ot Z79.01 10/21/2015 LICO, BOBAN N Ot Z79.899 10/21/2015 LICO, BOBAN N Ot Z95.2 11/13/2015 LICO, BOBAN N Ot D50.9 11/13/2015 LICO, BOBAN N Ot D51.8 11/13/2015 LICO, BOBAN N Ot D63.1 11/13/2015 LICO, BOBAN N Ot E78.5 11/13/2015 LICO, BOBAN N Ot I12.9 11/13/2015 LICO, BOBAN N Ot I25.10 11/13/2015 LICO, BOBAN N Ot N18.3 11/13/2015 LICO, BOBAN N Ot Z79.01 11/13/2015 LICO, BOBAN N Ot Z79.899 11/13/2015 LICO, BOBAN N Ot Z95.2 11/24/2015 LICO, BOBAN N Ot D50.9 11/24/2015 LICO, BOBAN N Ot D51.8 11/24/2015 LICO, BOBAN N Ot D63.1 11/24/2015 LICO, BOBAN N Ot E78.5 11/24/2015 LICO, BOBAN N Ot I12.9 11/24/2015 LICO, BOBAN N Ot I25.10 11/24/2015 LICO, BOBAN N Ot N18.3 11/24/2015 LICO, BOBAN N Ot Z79.01 11/24/2015 LICO, BOBAN N Ot Z79.899 11/24/2015 LICO, BOBAN N Ot Z95.2 12/09/2015 LICO, BOBAN N Ot D50.9 12/09/2015 LICO, BOBAN N Ot D51.8 12/09/2015 LICO, BOBAN N Ot D63.1 12/09/2015 LICO, BOBAN N Ot E78.5 12/09/2015 LICO, BOBAN N Ot I12.9 12/09/2015 LICO, BOBAN N Ot I25.10 12/09/2015 LICO, BOBAN N Ot N18.3 12/09/2015 LICO, BOBAN N Ot Z79.01 12/09/2015 LICO, BOBAN N Ot Z79.899 12/09/2015 LICO, BOBAN N Ot Z95.2 01/07/2016 LICO, BOBAN N Ot D50.9 01/07/2016 LICO, BOBAN N Ot D51.8 01/07/2016 LICO, BOBAN N Ot D63.1 01/07/2016 LICO, BOBAN N Ot E78.5 01/07/2016 LICO, BOBAN N Ot I12.9 01/07/2016 LICO, BOBAN N Ot I25.10 01/07/2016 LICO, BOBAN N Ot N18.3 01/07/2016 LICOJAVAD ASHBY N Ot Z79.01 01/07/2016 LICOJAVAD ASHBY N Ot Z79.899 01/07/2016 LICO, RAKELJOSEPH N Ot Z95.2 01/18/2016 JAVAD BARFIELD N Ot D50.9 IRON DEFICIENCY ANEMIA, UNSPECIFIED 01/18/2016 LICO, RAKELJOSEPH N Ot D51.8 OTHER VITAMIN B12 DEFICIENCY ANEMIAS 01/18/2016 LICOJAVAD ASHBY N Ot D63.1 ANEMIA IN CHRONIC KIDNEY DISEASE 01/18/2016 LICOJAVAD ASHBY N Ot E78.5 HYPERLIPIDEMIA, UNSPECIFIED 01/18/2016 LICO, RAKELJOSEPH N Ot I12.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 01/18/2016 LICO RAKELJOSEPH N Ot I25.10 ATHSCL HEART DISEASE OF [place] CORONARY 01/18/2016 LICOJAVAD ASHBY N Ot N18.3 CHRONIC KIDNEY DISEASE, STAGE 3 (MODERAT 01/18/2016 LICOJAVAD ASHBY N Ot Z79.01 [facility] (CURRENT) USE OF ANTICOAGULANT 01/18/2016 LICOJAVAD ASHBY N Ot Z79.899 OTHER MEDICAL INSTRUCTOR (CURRENT) DRUG THERAPY 01/18/2016 LICOJAVAD ASHBY N Ot Z95.2 PRESENCE OF PROSTHETIC HEART VALVE 01/24/2016 JAVAD BARFIELD N Ot D50.9 IRON DEFICIENCY ANEMIA, UNSPECIFIED 01/24/2016 LICOJAVAD ASHBY N Ot D51.8 OTHER VITAMIN B12 DEFICIENCY ANEMIAS 01/24/2016 JAVAD BARFIELD N Ot D63.1 ANEMIA IN CHRONIC KIDNEY DISEASE 01/24/2016 LICO RAKELJOSEPH N Ot E78.5 HYPERLIPIDEMIA, UNSPECIFIED 01/24/2016 LICO RAKELJOSEPH N Ot I12.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 01/24/2016 LICO, RAKELJOSEPH N Ot I25.10 ATHSCL HEART DISEASE OF [place] CORONARY 01/24/2016 LICO, RAKELJOSEPH N Ot N18.3 CHRONIC KIDNEY DISEASE, STAGE 3 (MODERAT 01/24/2016 LICOJAVAD ASHBY N Ot Z79.01 [facility] (CURRENT) USE OF ANTICOAGULANT 01/24/2016 LICO RAKELAN N Ot Z79.899 OTHER MEDICAL INSTRUCTOR (CURRENT) DRUG THERAPY 01/24/2016 LICORAKEL ASHBYAN N Ot Z95.2 PRESENCE OF PROSTHETIC HEART VALVE 01/30/2016 LICOJAVAD ASHBY N Ot D50.9 IRON DEFICIENCY ANEMIA, UNSPECIFIED 01/30/2016 LICO BOBAN N Ot D51.8 OTHER VITAMIN B12 DEFICIENCY ANEMIAS 01/30/2016 LICORAKEL ASHBYAN N Ot D63.1 ANEMIA IN CHRONIC KIDNEY DISEASE 01/30/2016 LICOJAVAD ASHBY N Ot E78.5 HYPERLIPIDEMIA, UNSPECIFIED 01/30/2016 LICO BOBAN N Ot I12.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 01/30/2016 LICO BOBAN N Ot I25.10 ATHSCL HEART DISEASE OF [place] CORONARY 01/30/2016 LICOJAVAD ASHBY N Ot N18.3 CHRONIC KIDNEY DISEASE, STAGE 3 (MODERAT 01/30/2016 LICOJAVAD N Ot 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 01/30/2016 LICO BOBAN N Ot Z79.899 OTHER MEDICAL INSTRUCTOR (CURRENT) DRUG THERAPY 01/30/2016 LICO BOBAN N Ot Z95.2 PRESENCE OF PROSTHETIC HEART VALVE 02/04/2016 LICOJAVAD N Ot D50.9 IRON DEFICIENCY ANEMIA, UNSPECIFIED 02/04/2016 LICO BOBAN N Ot D51.8 OTHER VITAMIN B12 DEFICIENCY ANEMIAS 02/04/2016 JAVAD BARFIELD N Ot D63.1 ANEMIA IN CHRONIC KIDNEY DISEASE 02/04/2016 JAVAD BARFIELD N Ot E78.5 HYPERLIPIDEMIA, UNSPECIFIED 02/04/2016 LICOJAVAD N Ot I12.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 02/04/2016 LICOJAVAD N Ot I25.10 ATHSCL HEART DISEASE OF [place] CORONARY 02/04/2016 LICOJAVAD N Ot N18.3 CHRONIC KIDNEY DISEASE, STAGE 3 (MODERAT 02/04/2016 LICO BOBAN N Ot Z79.01 [facility] (CURRENT) USE OF ANTICOAGULANT 02/04/2016 LICO BOBAN N Ot Z79.899 OTHER MEDICAL INSTRUCTOR (CURRENT) DRUG THERAPY 02/04/2016 LICO BOBAN N Ot Z95.2 PRESENCE OF PROSTHETIC HEART VALVE 02/06/2016 LICO RAKELAN N Ot D50.9 IRON DEFICIENCY ANEMIA, UNSPECIFIED 02/06/2016 LICO BOBAN N Ot D51.8 OTHER VITAMIN B12 DEFICIENCY ANEMIAS 02/06/2016 JAVAD BARFIELD Ot D63.1 ANEMIA IN CHRONIC KIDNEY DISEASE 02/06/2016 JAVAD BARFIELD Ot E78.5 HYPERLIPIDEMIA, UNSPECIFIED 02/06/2016 JAVAD BARFIELD Ot I12.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 02/06/2016 JAVAD BARFIELD Ot I25.10 ATHSCL HEART DISEASE OF [place] CORONARY 02/06/2016 JAVAD BARFIELD Ot N18.3 CHRONIC KIDNEY DISEASE, STAGE 3 (MODERAT 02/06/2016 JAVAD BARFIELD Ot 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 02/06/2016 JAVAD BARFIELD Ot Z79.899 OTHER [facility] (CURRENT) DRUG THERAPY 02/06/2016 JAAVD BARFIELD Ot Z95.2 PRESENCE OF PROSTHETIC HEART VALVE 02/16/2016 JORGE JAIMES MD Ot D42.9 NEOPLASM OF UNCERTAIN BEHAVIOR OF [place] 02/16/2016 JORGE JAIMES MD Ot E86.0 DEHYDRATION 02/16/2016 JORGE JAIMES MD Ot G81.94 HEMIPLEGIA, UNSPECIFIED AFFECTING LEFT N 02/16/2016 JORGE JAIMES MD, Ot 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, LEFT 02/16/2016 JORGE JAIMES MD Ot I10 ESSENTIAL (PRIMARY) HYPERTENSION 02/16/2016 JORGE JAIMES MD, Ot I25.10 ATHSCL HEART DISEASE OF [place] CORONARY 02/16/2016 JORGE JAIMES MD Ot 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 NON-INSTITUT (PRIVATE) 02/16/2016 THEODORE PERSON, JORGE Resendez Ot Z66 DO NOT RESUSCITATE 02/16/2016 THEODORE PERSON, JORGE Resendez Ot Z86.73 PRSNL HX OF TIA (TIA), AND CEREB INFRC W 02/16/2016 JORGE JAIMES MD Ot Z87.891 PERSONAL HISTORY OF NICOTINE DEPENDENCE 02/16/2016 JORGE JAIMES MD Ot Z91.81 HISTORY OF FALLING 02/16/2016 JORGE JAIMES MD Ot Z95.1 PRESENCE OF AORTOCORONARY BYPASS GRAFT 02/16/2016 JORGE JAIMES MD Ot Z95.2 PRESENCE OF PROSTHETIC HEART VALVE 02/16/2016 Ot 401.9 HYPERTENSION NOS 02/16/2016 Ot 428.0 CONGESTIVE HEART FAILURE NOS 02/16/2016 Ot 401.9 HYPERTENSION NOS 02/16/2016 Ot 414.00 CORON ATHEROSCLER NOS TYPE VESSEL, NATIV 02/16/2016 JAVAD BARFIELD Ot 280.9 IRON DEFIC ANEMIA NOS 02/16/2016 JAVAD BARFIELD Ot 281.1 B12 DEFIC ANEMIA NEC 02/16/2016 JAVAD BARFIELD Ot V43.3 HEART VALVE REPLAC NEC 02/16/2016 JAVAD BARFIELD Ot V58.61 ANTICOAGULANTS,LT,CURRENT USE 02/16/2016 JAVAD BARFIELD Ot V58.69 OTH MED,LT,CURRENT USE 02/16/2016 Ot 280.9 IRON DEFIC ANEMIA NOS 02/16/2016 Ot 281.1 B12 DEFIC ANEMIA NEC 02/16/2016 Ot V43.3 HEART VALVE REPLAC NEC 02/16/2016 Ot V58.61 ANTICOAGULANTS,LT,CURRENT USE 02/16/2016 Ot V58.69 OTH MED,LT, CURRENT USE 02/16/2016 ENID ESTEVES MD Ot 272.4 HYPERLIPIDEMIA NEC/NOS 02/16/2016 ENID ESTEVES MD Ot 397.0 TRICUSPID VALVE DISEASE 02/16/2016 ENID ESTEVES MD Ot 401.9 HYPERTENSION NOS 02/16/2016 ENID ESTEVES MD Ot 414.00 CORON ATHEROSCLER NOS TYPE VESSEL, NATIV 02/16/2016 ENID ESTEVES MD Ot 424.0 MITRAL VALVE DISORDER 02/16/2016 ENID ESTEVES MD Ot 428.0 CONGESTIVE HEART FAILURE NOS 02/16/2016 ENID ESTEVES MD Ot 429.3 CARDIOMEGALY 02/16/2016 ENID ESTEVES MD Ot V43.3 HEART VALVE REPLAC NEC 02/16/2016 LICOJAVAD ASHBY N Ot 272.4 HYPERLIPIDEMIA NEC/NOS 02/16/2016 LICO, BOBJOSEPH N Ot 280.9 IRON DEFIC ANEMIA NOS 02/16/2016 JAVAD BARFIELD N Ot 281.1 B12 DEFIC ANEMIA NEC 02/16/2016 JAVAD BARFIELD N Ot 285.21 ANEMIA IN CHRONIC KIDNEY DISEASE 02/16/2016 JAVAD BAFRIELD N Ot 403.90 HYPTNSV CHR KID DIS, UNSPEC, W CHR KD ST 02/16/2016 JAVAD BARFIELD N Ot 414.00 CORON ATHEROSCLER NOS TYPE VESSEL, NATIV 02/16/2016 JAVAD BARFIELD N Ot 585.3 CHRONIC KIDNEY DISEASE, STAGE III (MODER 02/16/2016 LICOJAVAD ASHBY N Ot V43.3 HEART VALVE REPLAC NEC 02/16/2016 JAVAD BARFIELD N Ot V58.61 ANTICOAGULANTS,LT,CURRENT USE 02/16/2016 LICOJAVAD ASHBY N Ot V58.69 OTH MED,LT,CURRENT USE 02/16/2016 PARRISH, HILAH S PROCESS COACH Ot 272.4 HYPERLIPIDEMIA NEC/NOS 02/16/2016 PARRISHMANASAH S PROCESS COACH Ot 280.9 IRON DEFIC ANEMIA NOS 02/16/2016 PARRISHMANASAH S PROCESS COACH Ot 281.1 B12 DEFIC ANEMIA NEC 02/16/2016 PARRISHMANASAH S PROCESS COACH Ot 285.21 ANEMIA IN CHRONIC KIDNEY DISEASE 02/16/2016 ARNOLDO PARRISH S PROCESS COACH Ot 403.90 HYPTNSV CHR KID DIS, UNSPEC, W CHR KD ST 02/16/2016 PARRISHMANASAH S PROCESS COACH Ot 414.00 CORON ATHEROSCLER NOS TYPE VESSEL, NATIV 02/16/2016 PARRISH HILAH S PROCESS COACH Ot 585.3 CHRONIC KIDNEY DISEASE, STAGE III (MODER 02/16/2016 PARRISHMANASAH S PROCESS COACH Ot V43.3 HEART VALVE REPLAC NEC 02/16/2016 PARRISH HILAH S PROCESS COACH Ot V58.61 ANTICOAGULANTS,LT,CURRENT USE 02/16/2016 PARRISH HILAH S PROCESS COACH Ot V58.69 OTH MED,LT,CURRENT USE 02/16/2016 JOYCEFÁTIMA LAMA Ot 272.4 HYPERLIPIDEMIA NEC/NOS 02/16/2016 FÁTIMA MATHEWS Ot 401.9 HYPERTENSION NOS 02/16/2016 FÁTIMA MATHEWS Ot 414.00 CORON ATHEROSCLER NOS TYPE VESSEL, NATIV 02/16/2016 FÁTIMA MATHEWS Ot 428.0 CONGESTIVE HEART FAILURE NOS 02/16/2016 FÁTIMA MATHEWS Ot 272.4 HYPERLIPIDEMIA NEC/NOS 02/16/2016 FÁTIMA MATHEWS Ot 401.9 HYPERTENSION NOS 02/16/2016 FÁTIMA MATHEWS Ot 414.00 CORON ATHEROSCLER NOS TYPE VESSEL, NATIV 02/16/2016 FÁTIMA MATHEWS Ot 428.0 CONGESTIVE HEART FAILURE NOS 02/16/2016 JAVAD BARFIELD Ot 272.4 HYPERLIPIDEMIA NEC/NOS 02/16/2016 JAVAD BARFIELD Ot 280.9 IRON DEFIC ANEMIA NOS 02/16/2016 JAVAD BARFIELD N Ot 281.1 B12 DEFIC ANEMIA NEC 02/16/2016 JAVAD BARFIELD N Ot 285.21 ANEMIA IN CHRONIC KIDNEY DISEASE 02/16/2016 JAVAD BARFIELD N Ot 403.90 HYPTNSV CHR KID DIS, UNSPEC, W CHR KD ST 02/16/2016 JAVAD BARFIELD N Ot 414.00 CORON ATHEROSCLER NOS TYPE VESSEL, NATIV 02/16/2016 JAVAD BARFIELD N Ot 585.3 CHRONIC KIDNEY DISEASE, STAGE III (MODER 02/16/2016 JAVAD BARFIELD Ot V43.3 HEART VALVE REPLAC NEC 02/16/2016 JAVAD BARFIELD N Ot V58.61 ANTICOAGULANTS,LT,CURRENT USE 02/16/2016 JAVAD BARFIELD N Ot V58.69 OTH MED,LT,CURRENT USE 02/16/2016 ARNOLDO PARRISH PROCESS COACH Ot 280.9 IRON DEFIC ANEMIA NOS 02/16/2016 ARNOLDO PARRISH PROCESS COACH Ot 281.1 B12 DEFIC ANEMIA NEC 02/16/2016 ARNOLDO PARRISH PROCESS COACH Ot 533.90 PEPTIC ULCER NOS 02/16/2016 ARNOLDO PARRISH PROCESS COACH Ot V43.3 HEART VALVE REPLAC NEC 02/16/2016 ARNOLDO PARRISH PROCESS COACH Ot V58.61 ANTICOAGULANTS,LT,CURRENT USE 02/16/2016 ARNOLDO PARRISH PROCESS COACH Ot V58.69 OTH MED,LT,CURRENT USE 02/16/2016 ARNOLDO PARRISH PROCESS COACH Ot D50.9 IRON DEFICIENCY ANEMIA, UNSPECIFIED 02/16/2016 ARNOLDO PARRISH PROCESS COACH Ot D51.8 OTHER VITAMIN B12 DEFICIENCY ANEMIAS 02/16/2016 ARNOLDO PARRISH PROCESS COACH Ot D63.1 ANEMIA IN CHRONIC KIDNEY DISEASE 02/16/2016 ARNOLDO PARRISH PROCESS COACH Ot E78.5 HYPERLIPIDEMIA, UNSPECIFIED 02/16/2016 ARNOLDO PARRISH PROCESS COACH Ot I12.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 02/16/2016 ARNOLDO PARRISH PROCESS COACH Ot I25.10 ATHSCL HEART DISEASE OF [place] CORONARY 02/16/2016 ARNOLDO PARRISH PROCESS COACH Ot N18.3 CHRONIC KIDNEY DISEASE, STAGE 3 (MODERAT 02/16/2016 PARRISHARNOLDO Kyle PROCESS COACH Ot 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 02/16/2016 PARRISHARNOLDO Kyle PROCESS COACH Ot Z79.899 OTHER [facility] (CURRENT) DRUG THERAPY 02/16/2016 PARRISHARNOLDO Kyle PROCESS COACH Ot Z95.2 PRESENCE OF PROSTHETIC HEART VALVE 02/16/2016 JAVAD BARFIELD N Ot D50.9 IRON DEFICIENCY ANEMIA, UNSPECIFIED 02/16/2016 LICOJAVAD N Ot D51.8 OTHER VITAMIN B12 DEFICIENCY ANEMIAS 02/16/2016 JAVAD BARFIELD N Ot D63.1 ANEMIA IN CHRONIC KIDNEY DISEASE 02/16/2016 JAVAD BARFIELD N Ot E78.5 HYPERLIPIDEMIA, UNSPECIFIED 02/16/2016 JAVAD BARFIELD N Ot I12.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 02/16/2016 JAVAD BARFIELD N Ot I25.10 ATHSCL HEART DISEASE OF [place] CORONARY 02/16/2016 JAVAD BARFIELD N Ot N18.3 CHRONIC KIDNEY DISEASE, STAGE 3 (MODERAT 02/16/2016 LICOJAVAD ASHBY N Ot 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 02/16/2016 JAVAD BARFIELD N Ot Z79.899 OTHER MEDICAL INSTRUCTOR (CURRENT) DRUG THERAPY 02/16/2016 JAVAD BARFIELD N Ot Z95.2 PRESENCE OF PROSTHETIC HEART VALVE 02/25/2016 ANI SALDAÑA MD Ot D42.9 NEOPLASM OF UNCERTAIN BEHAVIOR OF MENING 02/25/2016 ANI SALDAÑA MD Ot F32.9 MAJOR DEPRESSIVE DISORDER, SINGLE EPISOD 02/25/2016 ANI SALDAÑA MD Ot H54.7 UNSPECIFIED VISUAL LOSS 02/25/2016 ANI SALDAÑA MD Ot I10 ESSENTIAL (PRIMARY) HYPERTENSION 02/25/2016 ANI SALDAÑA MD Ot I25.10 ATHSCL HEART DISEASE OF [place] CORONARY 02/25/2016 ANI SALDAÑA MD Ot 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 02/25/2016 ANI SALDAÑA MD Ot I69.354 HEMIPLGA FOLLOWING CEREBRAL INFRC AFFECT 02/25/2016 ANI SALDAÑA MD Ot I69.398 OTHER SEQUELAE OF CEREBRAL INFARCTION 02/25/2016 ANI SALDAÑA MD Ot M19.90 UNSPECIFIED OSTEOARTHRITIS, UNSPECIFIED 02/25/2016 ANI SALDAÑA MD Ot N39.0 URINARY TRACT INFECTION, SITE NOT SPECIF 02/25/2016 ANI SALDAÑA MD Ot N40.0 ENLARGED PROSTATE WITHOUT LOWER URINARY 02/25/2016 ANI SALDAÑA MD Ot R26.0 ATAXIC GAIT 02/25/2016 ANI SALDAÑA MD Ot R27.8 OTHER LACK OF COORDINATION 02/25/2016 ANI SALDAÑA MD Ot R41.3 OTHER AMNESIA 02/25/2016 ANI SALDAÑA MD Ot R41.4 NEUROLOGIC NEGLECT SYNDROME 02/25/2016 ANI SALDAÑA MD Ot 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 02/25/2016 ANI SALDAÑA MD Ot Z95.2 PRESENCE OF PROSTHETIC HEART VALVE 02/25/2016 ANI SALDAÑA MD Ot Z95.5 PRESENCE OF CORONARY ANGIOPLASTY IMPLANT 02/25/2016 ANI SALDAÑA MD Ot D42.9 NEOPLASM OF UNCERTAIN BEHAVIOR OF MENING 02/25/2016 ANI SALDAÑA MD Ot F32.9 MAJOR DEPRESSIVE DISORDER, SINGLE EPISOD 02/25/2016 ANI SALDAÑA MD Ot H54.7 UNSPECIFIED VISUAL LOSS 02/25/2016 ANI SALDAÑA MD Ot I10 ESSENTIAL (PRIMARY) HYPERTENSION 02/25/2016 ANI SALDAÑA MD Ot I25.10 ATHSCL HEART DISEASE OF [place] CORONARY 02/25/2016 ANI SALDAÑA MD Ot 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 02/25/2016 ANI SALDAÑA MD Ot I69.354 HEMIPLGA FOLLOWING CEREBRAL INFRC AFFECT 02/25/2016 ANI SALDAÑA MD Ot I69.398 OTHER SEQUELAE OF CEREBRAL INFARCTION 02/25/2016 ANI SALDAÑA MD Ot M19.90 UNSPECIFIED OSTEOARTHRITIS, UNSPECIFIED 02/25/2016 ANI SALDAÑA MD Ot N39.0 URINARY TRACT INFECTION, SITE NOT SPECIF 02/25/2016 ANI SALDAÑA MD Ot N40.0 ENLARGED PROSTATE WITHOUT LOWER URINARY 02/25/2016 ANI SALDAÑA MD Ot R26.0 ATAXIC GAIT 02/25/2016 ANI SALDAÑA MD Ot R27.8 OTHER LACK OF COORDINATION 02/25/2016 ANI SALDAÑA MD Ot R41.3 OTHER AMNESIA 02/25/2016 ANI SALDAÑA MD Ot R41.4 NEUROLOGIC NEGLECT SYNDROME 02/25/2016 ANI SALDAÑA MD Ot Z79.01 [facility] (CURRENT) USE OF ANTICOAGULANT 02/25/2016 ANI SALDAÑA MD Ot Z95.2 PRESENCE OF PROSTHETIC HEART VALVE 02/25/2016 ANI SALDAÑA MD Ot Z95.5 PRESENCE OF CORONARY ANGIOPLASTY IMPLANT 02/25/2016 ANI SALDAÑA MD Ot D42.9 NEOPLASM OF UNCERTAIN BEHAVIOR OF MENING 02/25/2016 ANI SALDAÑA MD Ot F32.9 MAJOR DEPRESSIVE DISORDER, SINGLE EPISOD 02/25/2016 ANI SALDAÑA MD Ot H54.7 UNSPECIFIED VISUAL LOSS 02/25/2016 ANI SALDAÑA MD Ot I10 ESSENTIAL (PRIMARY) HYPERTENSION 02/25/2016 ANI SALDAÑA MD Ot I25.10 ATHSCL HEART DISEASE OF [place] CORONARY 02/25/2016 ANI SALDAÑA MD Ot 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 02/25/2016 ANI SALDAÑA MD Ot I69.354 HEMIPLGA FOLLOWING CEREBRAL INFRC AFFECT 02/25/2016 ANI SALDAÑA MD Ot I69.398 OTHER SEQUELAE OF CEREBRAL INFARCTION 02/25/2016 ANI SALDAÑA MD Ot M19.90 UNSPECIFIED OSTEOARTHRITIS, UNSPECIFIED 02/25/2016 ANI SALDAÑA MD Ot N39.0 URINARY TRACT INFECTION, SITE NOT SPECIF 02/25/2016 ANI SALDAÑA MD Ot N40.0 ENLARGED PROSTATE WITHOUT LOWER URINARY 02/25/2016 ANI SALDAÑA MD Ot R26.0 ATAXIC GAIT 02/25/2016 ANI SALDAÑA MD Ot R27.8 OTHER LACK OF COORDINATION 02/25/2016 ANI SALDAÑA MD Ot R41.3 OTHER AMNESIA 02/25/2016 ANI SALDAÑA MD Ot R41.4 NEUROLOGIC NEGLECT SYNDROME 02/25/2016 ANI SALDAÑA MD Ot Z79.01 [facility] (CURRENT) USE OF ANTICOAGULANT 02/25/2016 ANI SALDAÑA MD Ot Z95.2 PRESENCE OF PROSTHETIC HEART VALVE 02/25/2016 ANI SALDAÑA MD Ot Z95.5 PRESENCE OF CORONARY ANGIOPLASTY IMPLANT 02/26/2016 ANI SALDAÑA MD Ot D42.9 NEOPLASM OF UNCERTAIN BEHAVIOR OF MENING 02/26/2016 ANI SALDAÑA MD Ot F32.9 MAJOR DEPRESSIVE DISORDER, SINGLE EPISOD 02/26/2016 ANI SALDAÑA MD Ot H54.7 UNSPECIFIED VISUAL LOSS 02/26/2016 ANI SALDAÑA MD Ot I10 ESSENTIAL (PRIMARY) HYPERTENSION 02/26/2016 ANI SALDAÑA MD Ot I25.10 ATHSCL HEART DISEASE OF [place] CORONARY 02/26/2016 ANI SALDAÑA MD Ot 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 02/26/2016 ANI SALDAÑA MD Ot I69.354 HEMIPLGA FOLLOWING CEREBRAL INFRC AFFECT 02/26/2016 ANI SALDAÑA MD Ot I69.398 OTHER SEQUELAE OF CEREBRAL INFARCTION 02/26/2016 ANI SALDAÑA MD Ot M19.90 UNSPECIFIED OSTEOARTHRITIS, UNSPECIFIED 02/26/2016 ANI SALDAÑA MD Ot N39.0 URINARY TRACT INFECTION, SITE NOT SPECIF 02/26/2016 NAI SALDAÑA MD Ot N40.0 ENLARGED PROSTATE WITHOUT LOWER URINARY 02/26/2016 ANI SALDAÑA MD Ot R26.0 ATAXIC GAIT 02/26/2016 ANI SALDAÑA MD Ot R27.8 OTHER LACK OF COORDINATION 02/26/2016 ANI SALDAÑA MD Ot R41.3 OTHER AMNESIA 02/26/2016 ANI SALDAÑA MD Ot R41.4 NEUROLOGIC NEGLECT SYNDROME 02/26/2016 ANI SALDAÑA MD Ot 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 02/26/2016 ANI SALDAÑA MD Ot Z95.2 PRESENCE OF PROSTHETIC HEART VALVE 02/26/2016 ANI SALDAÑA MD Ot Z95.5 PRESENCE OF CORONARY ANGIOPLASTY IMPLANT 02/27/2016 ANI SALDAÑA MD Ot D42.9 NEOPLASM OF UNCERTAIN BEHAVIOR OF MENING 02/27/2016 ANI SALDAÑA MD Ot F32.9 MAJOR DEPRESSIVE DISORDER, SINGLE EPISOD 02/27/2016 ANI SALDAÑA MD Ot H54.7 UNSPECIFIED VISUAL LOSS 02/27/2016 ANI SALDAÑA MD Ot I10 ESSENTIAL (PRIMARY) HYPERTENSION 02/27/2016 ANI SALDAÑA MD Ot I25.10 ATHSCL HEART DISEASE OF [place] CORONARY 02/27/2016 ANI SALDAÑA MD Ot 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 02/27/2016 ANI SALDAÑA MD Ot I69.354 HEMIPLGA FOLLOWING CEREBRAL INFRC AFFECT 02/27/2016 ANI SALDAÑA MD Ot I69.398 OTHER SEQUELAE OF CEREBRAL INFARCTION 02/27/2016 ANI SALDAÑA MD Ot M19.90 UNSPECIFIED OSTEOARTHRITIS, UNSPECIFIED 02/27/2016 ANI SALDAÑA MD Ot N39.0 URINARY TRACT INFECTION, SITE NOT SPECIF 02/27/2016 ANI SALDAÑA MD Ot N40.0 ENLARGED PROSTATE WITHOUT LOWER URINARY 02/27/2016 ANI SALDAÑA MD Ot R26.0 ATAXIC GAIT 02/27/2016 ANI SALDAÑA MD Ot R27.8 OTHER LACK OF COORDINATION 02/27/2016 ANI SALDAÑA MD Ot R41.3 OTHER AMNESIA 02/27/2016 ANI SALDAÑA MD Ot R41.4 NEUROLOGIC NEGLECT SYNDROME 02/27/2016 ANI SALDAÑA MD Ot 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 02/27/2016 ANI SALDAÑA MD Ot Z95.2 PRESENCE OF PROSTHETIC HEART VALVE 02/27/2016 ANI SALDAÑA MD Ot Z95.5 PRESENCE OF CORONARY ANGIOPLASTY IMPLANT 02/27/2016 ANI SALDAÑA MD Ot D42.9 NEOPLASM OF UNCERTAIN BEHAVIOR OF MENING 02/27/2016 ANI SALDAÑA MD Ot F32.9 MAJOR DEPRESSIVE DISORDER, SINGLE EPISOD 02/27/2016 ANI SALDAÑA MD Ot H54.7 UNSPECIFIED VISUAL LOSS 02/27/2016 ANI SALDAÑA MD Ot I10 ESSENTIAL (PRIMARY) HYPERTENSION 02/27/2016 ANI SALDAÑA MD Ot I25.10 ATHSCL HEART DISEASE OF [place] CORONARY 02/27/2016 ANI SALDAÑA MD Ot 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 02/27/2016 ANI SALDAÑA MD Ot I69.354 HEMIPLGA FOLLOWING CEREBRAL INFRC AFFECT 02/27/2016 ANI SALDAÑA MD Ot I69.398 OTHER SEQUELAE OF CEREBRAL INFARCTION 02/27/2016 ANI SALDAÑA MD Ot M19.90 UNSPECIFIED OSTEOARTHRITIS, UNSPECIFIED 02/27/2016 ANI SALDAÑA MD Ot N39.0 URINARY TRACT INFECTION, SITE NOT SPECIF 02/27/2016 ANI SALDAÑA MD Ot N40.0 ENLARGED PROSTATE WITHOUT LOWER URINARY 02/27/2016 ANI SALDAÑA MD Ot R26.0 ATAXIC GAIT 02/27/2016 ANI SALDAÑA MD Ot R27.8 OTHER LACK OF COORDINATION 02/27/2016 ANI SALDAÑA MD Ot R41.3 OTHER AMNESIA 02/27/2016 ANI SALDAÑA MD Ot R41.4 NEUROLOGIC NEGLECT SYNDROME 02/27/2016 ANI SALDAÑA MD Ot Z79.01 [facility] (CURRENT) USE OF ANTICOAGULANT 02/27/2016 ANI SALDAÑA MD Ot Z95.2 PRESENCE OF PROSTHETIC HEART VALVE 02/27/2016 ANI SALDAÑA MD Ot Z95.5 PRESENCE OF CORONARY ANGIOPLASTY IMPLANT 02/28/2016 ANI SALDAÑA MD Ot D42.9 NEOPLASM OF UNCERTAIN BEHAVIOR OF MENING 02/28/2016 ANI SALDAÑA MD Ot E86.0 DEHYDRATION 02/28/2016 ANI SALDAÑA MD Ot F03.90 UNSPECIFIED DEMENTIA WITHOUT BEHAVIORAL 02/28/2016 ANI SALDAÑA MD Ot F32.9 MAJOR DEPRESSIVE DISORDER, SINGLE EPISOD 02/28/2016 ANI SALDAÑA MD Ot H54.7 UNSPECIFIED VISUAL LOSS 02/28/2016 ANI SALDAÑA MD Ot I10 ESSENTIAL (PRIMARY) HYPERTENSION 02/28/2016 ANI SALDAÑA MD Ot I25.10 ATHSCL HEART DISEASE OF [place] CORONARY 02/28/2016 ANI SALDAÑA MD Ot 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 02/28/2016 ANI SALDAÑA MD Ot I69.354 HEMIPLGA FOLLOWING CEREBRAL INFRC AFFECT 02/28/2016 ANI SALDAÑA MD Ot I69.398 OTHER SEQUELAE OF CEREBRAL INFARCTION 02/28/2016 ANI SALDAÑA MD E Ot I95.9 HYPOTENSION, UNSPECIFIED 02/28/2016 ANI SALDAÑA MD E Ot M19.90 UNSPECIFIED OSTEOARTHRITIS, UNSPECIFIED 02/28/2016 ANI SALDAÑA MD E Ot N17.9 ACUTE KIDNEY FAILURE, UNSPECIFIED 02/28/2016 ANI SALDAÑA MD E Ot N39.0 URINARY TRACT INFECTION, SITE NOT SPECIF 02/28/2016 ANI SALDAÑA MD E Ot N40.0 ENLARGED PROSTATE WITHOUT LOWER URINARY 02/28/2016 ANI SALDAÑA MD E Ot R19.5 OTHER FECAL ABNORMALITIES 02/28/2016 ANI SALDAÑA MD E Ot R26.0 ATAXIC GAIT 02/28/2016 ANI SALDAÑA MD E Ot R27.8 OTHER LACK OF COORDINATION 02/28/2016 ANI SALDAÑA MD E Ot R41.3 OTHER AMNESIA 02/28/2016 ANI SALDAÑA MD E Ot R41.4 NEUROLOGIC NEGLECT SYNDROME 02/28/2016 ANI SALDAÑA MD E Ot R51 HEADACHE 02/28/2016 ANI SALDAÑA MD E Ot Z79.01 [facility] (CURRENT) USE OF ANTICOAGULANT 02/28/2016 ANI SALDAÑA MD E Ot Z95.2 PRESENCE OF PROSTHETIC HEART VALVE 02/28/2016 ANI SALDAÑA MD E Ot Z95.5 PRESENCE OF CORONARY ANGIOPLASTY IMPLANT 03/18/2016 JAVAD BARFIELD Ot D50.9 IRON DEFICIENCY ANEMIA, UNSPECIFIED 03/18/2016 JAVAD BARFIELD Ot D51.8 OTHER VITAMIN B12 DEFICIENCY ANEMIAS 03/18/2016 JAVAD BARIFELD Ot D63.1 ANEMIA IN CHRONIC KIDNEY DISEASE 03/18/2016 JAVAD BARFIELD Ot E78.5 HYPERLIPIDEMIA, UNSPECIFIED 03/18/2016 JAVAD BARFIELD Ot I12.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 03/18/2016 JAVAD BARFIELD Ot I25.10 ATHSCL HEART DISEASE OF [place] CORONARY 03/18/2016 JAVAD BARFIELD Ot N18.3 CHRONIC KIDNEY DISEASE, STAGE 3 (MODERAT 03/18/2016 JAVAD BARFIELD Ot Z79.01 [facility] (CURRENT) USE OF ANTICOAGULANT 03/18/2016 JAVAD BARFIELD Ot Z79.899 OTHER [facility] (CURRENT) DRUG THERAPY 03/18/2016 JAVAD BARFIELD N Ot Z95.2 PRESENCE OF PROSTHETIC HEART VALVE 04/01/2016 JAVAD BARFIELD N Ot D50.9 IRON DEFICIENCY ANEMIA, UNSPECIFIED 04/01/2016 LICOJAVAD N Ot D51.8 OTHER VITAMIN B12 DEFICIENCY ANEMIAS 04/01/2016 LICOJAVAD ASHBY N Ot D63.1 ANEMIA IN CHRONIC KIDNEY DISEASE 04/01/2016 LICOJAVAD ASHBY N Ot E78.5 HYPERLIPIDEMIA, UNSPECIFIED 04/01/2016 LICOJAVAD N Ot I12.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 04/01/2016 LICOJAVAD N Ot I25.10 ATHSCL HEART DISEASE OF [place] CORONARY 04/01/2016 JAVAD BARFIELD N Ot N18.3 CHRONIC KIDNEY DISEASE, STAGE 3 (MODERAT 04/01/2016 JAVAD BARFIELD N Ot 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 04/01/2016 JAVAD BARFIELD N Ot Z79.899 OTHER [facility] (CURRENT) DRUG THERAPY 04/01/2016 JAVAD BARFIELD N Ot Z95.2 PRESENCE OF PROSTHETIC HEART VALVE 05/05/2016 JAVAD BARFIELD N Ot D50.9 IRON DEFICIENCY ANEMIA, UNSPECIFIED 05/05/2016 LICOJAVAD ASHBY N Ot D51.8 OTHER VITAMIN B12 DEFICIENCY ANEMIAS 05/05/2016 JAVAD BARFIELD N Ot D63.1 ANEMIA IN CHRONIC KIDNEY DISEASE 05/05/2016 JAVAD BARFIELD N Ot E78.5 HYPERLIPIDEMIA, UNSPECIFIED 05/05/2016 LICOJAVAD ASHBY N Ot I12.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 05/05/2016 LICOJAVAD N Ot I25.10 ATHSCL HEART DISEASE OF [place] CORONARY 05/05/2016 JAVAD BARFIELD N Ot N18.3 CHRONIC KIDNEY DISEASE, STAGE 3 (MODERAT 05/05/2016 LICOJAVAD ASHBY N Ot R82.90 UNSPECIFIED ABNORMAL FINDINGS IN URINE 05/05/2016 LICOAJVAD ASHBY N Ot Z79.01 [facility] (CURRENT) USE OF ANTICOAGULANT 05/05/2016 LICORAKEL ASHBYAN N Ot Z79.899 OTHER [facility] (CURRENT) DRUG THERAPY 05/05/2016 LICOJAVAD ASHBY N Ot Z95.2 PRESENCE OF PROSTHETIC HEART VALVE 05/06/2016 LICOJAVAD N Ot D50.9 IRON DEFICIENCY ANEMIA, UNSPECIFIED 05/06/2016 LICOJAVAD N Ot D51.8 OTHER VITAMIN B12 DEFICIENCY ANEMIAS 05/06/2016 LICOJAVAD N Ot D63.1 ANEMIA IN CHRONIC KIDNEY DISEASE 05/06/2016 LICO JAVAD N Ot E78.5 HYPERLIPIDEMIA, UNSPECIFIED 05/06/2016 LICOJAVAD N Ot I12.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 05/06/2016 LICOJAVAD N Ot I25.10 ATHSCL HEART DISEASE OF [place] CORONARY 05/06/2016 LICO, JAVAD N Ot N18.3 CHRONIC KIDNEY DISEASE, STAGE 3 (MODERAT 05/06/2016 LICOJAVAD ASHBY N Ot R82.90 UNSPECIFIED ABNORMAL FINDINGS IN URINE 05/06/2016 LICOJAVAD ASHBY N Ot 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 05/06/2016 LICORAKEL ASHBYAN N Ot Z79.899 OTHER MEDICAL INSTRUCTOR (CURRENT) DRUG THERAPY 05/06/2016 LICOJAVAD ASHBY N Ot Z95.2 PRESENCE OF PROSTHETIC HEART VALVE 08/02/2016 GAL PERSON, SYED Dipti Ot R19.7 DIARRHEA, UNSPECIFIED 08/06/2016 SYED SANTO MD Ot R19.7 DIARRHEA, UNSPECIFIED 08/31/2016 JAVAD BARFIELD N Ot D50.9 IRON DEFICIENCY ANEMIA, UNSPECIFIED 08/31/2016 LICOJAVAD N Ot D51.8 OTHER VITAMIN B12 DEFICIENCY ANEMIAS 08/31/2016 JAVAD BARFIELD N Ot D63.1 ANEMIA IN CHRONIC KIDNEY DISEASE 08/31/2016 LICOJAVAD ASHBY N Ot E78.5 HYPERLIPIDEMIA, UNSPECIFIED 08/31/2016 LICOJAVAD N Ot I12.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 08/31/2016 LICOJAVAD N Ot I25.10 ATHSCL HEART DISEASE OF [place] CORONARY 08/31/2016 LICOJAVAD N Ot N18.3 CHRONIC KIDNEY DISEASE, STAGE 3 (MODERAT 08/31/2016 LICO BOBAN N Ot Z79.01 [facility] (CURRENT) USE OF ANTICOAGULANT 08/31/2016 LICO BOBAN N Ot Z79.899 OTHER MEDICAL INSTRUCTOR (CURRENT) DRUG THERAPY 08/31/2016 LICO, BOBAN N Ot Z95.2 PRESENCE OF PROSTHETIC HEART VALVE 09/27/2016 ARISTIDES SUN DO Ot I10 ESSENTIAL (PRIMARY) HYPERTENSION 09/27/2016 ARISTIDES SUN DO, Ot J34.89 OTHER SPECIFIED DISORDERS OF NOSE AND NA 09/27/2016 ARISTIDES SUN DO, Ot M47.812 SPONDYLOSIS W/O MYELOPATHY OR RADICULOPA 09/27/2016 ARISTIDES SUN DO, Ot S00.83XA CONTUSION OF OTHER PART OF HEAD, INITIAL 09/27/2016 ARISTIDES SUN DO, Ot S09.90XA UNSPECIFIED INJURY OF HEAD, INITIAL ENCO 09/27/2016 ARISTIDES SUN DO, Ot W06.XXXA FALL FROM BED, INITIAL ENCOUNTER 09/27/2016 ARISTIDES SUN DO, Ot Y92.[address] 09/27/2016 ARISTIDES SUN DO, Ot Y99.8 OTHER EXTERNAL CAUSE STATUS 09/27/2016 ARISTIDES SUN DO, Ot Z79.82 MEDICAL INSTRUCTOR (CURRENT) USE OF ASPIRIN 09/27/2016 ARISTIDES SUN DO, Ot Z79.899 OTHER [facility] (CURRENT) DRUG THERAPY 09/27/2016 ARISTIDES SUN DO, Ot Z95.1 PRESENCE OF AORTOCORONARY BYPASS GRAFT 09/27/2016 Ot 401.9 HYPERTENSION NOS 09/27/2016 Ot 414.00 CORON ATHEROSCLER NOS TYPE VESSEL, NATIV 09/27/2016 JAVAD BARFIELD Ot 280.9 IRON DEFIC ANEMIA NOS 09/27/2016 JAVAD BARFIELD Ot 281.1 B12 DEFIC ANEMIA NEC 09/27/2016 JAVAD BARFIELD Ot V43.3 HEART VALVE REPLAC NEC 09/27/2016 JAVAD BARFIELD Ot V58.61 ANTICOAGULANTS,LT,CURRENT USE 09/27/2016 JAVAD BARFIELD Ot V58.69 OTH MED,LT,CURRENT USE 09/27/2016 Ot 280.9 IRON DEFIC ANEMIA NOS 09/27/2016 Ot 281.1 B12 DEFIC ANEMIA NEC 09/27/2016 Ot V43.3 HEART VALVE REPLAC NEC 09/27/2016 Ot V58.61 ANTICOAGULANTS,LT,CURRENT USE 09/27/2016 Ot V58.69 OTH MED,LT, CURRENT USE 09/27/2016 ENID ESTEVES MD Ot 272.4 HYPERLIPIDEMIA NEC/NOS 09/27/2016 ENID ESTEVES MD Ot 397.0 TRICUSPID VALVE DISEASE 09/27/2016 ENID ESTEVES MD Ot 401.9 HYPERTENSION NOS 09/27/2016 ENID ESTEVES MD Ot 414.00 CORON ATHEROSCLER NOS TYPE VESSEL, NATIV 09/27/2016 ENID ESTEVES MD Ot 424.0 MITRAL VALVE DISORDER 09/27/2016 ENID ESTEVES MD Ot 428.0 CONGESTIVE HEART FAILURE NOS 09/27/2016 ENID ESTEVES MD Ot 429.3 CARDIOMEGALY 09/27/2016 ENID ESTEVES MD Ot V43.3 HEART VALVE REPLAC NEC 09/27/2016 JAVAD BARFIELD N Ot 272.4 HYPERLIPIDEMIA NEC/NOS 09/27/2016 JAVAD BARFIELD N Ot 280.9 IRON DEFIC ANEMIA NOS 09/27/2016 JAVAD BARFIELD N Ot 281.1 B12 DEFIC ANEMIA NEC 09/27/2016 JAVAD BARFIELD N Ot 285.21 ANEMIA IN CHRONIC KIDNEY DISEASE 09/27/2016 JAVAD BARFIELD N Ot 403.90 HYPTNSV CHR KID DIS, UNSPEC, W CHR KD ST 09/27/2016 JAVAD BARFIELD N Ot 414.00 CORON ATHEROSCLER NOS TYPE VESSEL, NATIV 09/27/2016 JAVAD BARFIELD N Ot 585.3 CHRONIC KIDNEY DISEASE, STAGE III (MODER 09/27/2016 JAVAD BARFIELD N Ot V43.3 HEART VALVE REPLAC NEC 09/27/2016 JAVAD BARFIELD N Ot V58.61 ANTICOAGULANTS,LT,CURRENT USE 09/27/2016 JAVAD BARFIELD N Ot V58.69 OTH MED,LT,CURRENT USE 09/27/2016 PARRISHARNOLDO Kyle S PROCESS COACH Ot 272.4 HYPERLIPIDEMIA NEC/NOS 09/27/2016 PARRISHARNOLDO Kyle S PROCESS COACH Ot 280.9 IRON DEFIC ANEMIA NOS 09/27/2016 ARNOLDO PARRISH S PROCESS COACH Ot 281.1 B12 DEFIC ANEMIA NEC 09/27/2016 PARRISH, HILAH S PROCESS COACH Ot 285.21 ANEMIA IN CHRONIC KIDNEY DISEASE 09/27/2016 ARNOLDO PARRISH S PROCESS COACH Ot 403.90 HYPTNSV CHR KID DIS, UNSPEC, W CHR KD ST 09/27/2016 ARNOLDO PARRISH S PROCESS COACH Ot 414.00 CORON ATHEROSCLER NOS TYPE VESSEL, NATIV 09/27/2016 ARNOLDO PARRISH PROCESS COACH Ot 585.3 CHRONIC KIDNEY DISEASE, STAGE III (MODER 09/27/2016 ARNOLDO PARRISH PROCESS COACH Ot V43.3 HEART VALVE REPLAC NEC 09/27/2016 ARNOLDO PARRISH PROCESS COACH Ot V58.61 ANTICOAGULANTS,LT,CURRENT USE 09/27/2016 ARNOLDO PARRISHP Ot V58.69 OTH MED,LT,CURRENT USE 09/27/2016 FÁTIMA MATHEWS Ot 272.4 HYPERLIPIDEMIA NEC/NOS 09/27/2016 FÁTIMA MATHEWS K Ot 401.9 HYPERTENSION NOS 09/27/2016 FÁTIMA MATHEWS K Ot 414.00 CORON ATHEROSCLER NOS TYPE VESSEL, NATIV 09/27/2016 FÁTIMA MATHEWS Ot 428.0 CONGESTIVE HEART FAILURE NOS 09/27/2016 FÁTIMA MATHEWS K Ot 272.4 HYPERLIPIDEMIA NEC/NOS 09/27/2016 FÁTIMA MATHEWS K Ot 401.9 HYPERTENSION NOS 09/27/2016 FÁTIMA MATHEWS K Ot 414.00 CORON ATHEROSCLER NOS TYPE VESSEL, NATIV 09/27/2016 FÁTIMA MATHEWS K Ot 428.0 CONGESTIVE HEART FAILURE NOS 09/27/2016 JAVAD BARFIELD Ot 272.4 HYPERLIPIDEMIA NEC/NOS 09/27/2016 JAVAD BARFIELD N Ot 280.9 IRON DEFIC ANEMIA NOS 09/27/2016 JAVAD BARFIELD N Ot 281.1 B12 DEFIC ANEMIA NEC 09/27/2016 JAVAD BARFIELD N Ot 285.21 ANEMIA IN CHRONIC KIDNEY DISEASE 09/27/2016 JAVAD BARFIELD Ot 403.90 HYPTNSV CHR KID DIS, UNSPEC, W CHR KD ST 09/27/2016 JAVAD BARFIELD N Ot 414.00 CORON ATHEROSCLER NOS TYPE VESSEL, NATIV 09/27/2016 JAVAD BARFIELD Ot 585.3 CHRONIC KIDNEY DISEASE, STAGE III (MODER 09/27/2016 JAVAD BARFIELD Ot V43.3 HEART VALVE REPLAC NEC 09/27/2016 JAVAD BARFIELD N Ot V58.61 ANTICOAGULANTS,LT,CURRENT USE 09/27/2016 JAVAD BARFIELD Ot V58.69 OTH MED,LT,CURRENT USE 09/27/2016 ARNOLDO PARRISH PROCESS COACH Ot 280.9 IRON DEFIC ANEMIA NOS 09/27/2016 ARNOLDO PARRISH PROCESS COACH Ot 281.1 B12 DEFIC ANEMIA NEC 09/27/2016 ARNOLDO PARRISH PROCESS COACH Ot 533.90 PEPTIC ULCER NOS 09/27/2016 ARNOLDO PARRISH PROCESS COACH Ot V43.3 HEART VALVE REPLAC NEC 09/27/2016 ARNOLDO PARRISH PROCESS COACH Ot V58.61 ANTICOAGULANTS,LT,CURRENT USE 09/27/2016 ARNOLDO PARRISH PROCESS COACH Ot V58.69 OTH MED,LT,CURRENT USE 09/27/2016 ARNOLDO PARRISH PROCESS COACH Ot D50.9 IRON DEFICIENCY ANEMIA, UNSPECIFIED 09/27/2016 ARNOLDO PARRISHP Ot D51.8 OTHER VITAMIN B12 DEFICIENCY ANEMIAS 09/27/2016 ARNOLDO PARRISHP Ot D63.1 ANEMIA IN CHRONIC KIDNEY DISEASE 09/27/2016 ARNOLDO PARRISHP Ot E78.5 HYPERLIPIDEMIA, UNSPECIFIED 09/27/2016 ARNOLDO PARRISH PROCESS COACH Ot I12.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 09/27/2016 MANAS PARRISHJULISA Saroj PROCESS COACH Ot I25.10 ATHSCL HEART DISEASE OF [place] CORONARY 09/27/2016 ARNOLDO PARRISH PROCESS COACH Ot N18.3 CHRONIC KIDNEY DISEASE, STAGE 3 (MODERAT 09/27/2016 ARNOLDO PARRISH PROCESS COACH Ot 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 09/27/2016 ARNOLDO PARRISH PROCESS COACH Ot Z79.899 OTHER MEDICAL INSTRUCTOR (CURRENT) DRUG THERAPY 09/27/2016 ARNOLDO PARRISH PROCESS COACH Ot Z95.2 PRESENCE OF PROSTHETIC HEART VALVE 09/27/2016 JAVAD BARFIELD Ot D50.9 IRON DEFICIENCY ANEMIA, UNSPECIFIED 09/27/2016 JAVAD BARFIELD Ot D51.8 OTHER VITAMIN B12 DEFICIENCY ANEMIAS 09/27/2016 JAVAD BARFIELD Ot D63.1 ANEMIA IN CHRONIC KIDNEY DISEASE 09/27/2016 JAVAD BARFIELD Ot E78.5 HYPERLIPIDEMIA, UNSPECIFIED 09/27/2016 JAVAD BARFIELD Ot I12.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 09/27/2016 JAVAD BARFIELD Ot I25.10 ATHSCL HEART DISEASE OF [place] CORONARY 09/27/2016 JAVAD BARFIELD Ot N18.3 CHRONIC KIDNEY DISEASE, STAGE 3 (MODERAT 09/27/2016 JAVAD BARFIELD Ot Z79.01 [facility] (CURRENT) USE OF ANTICOAGULANT 09/27/2016 JAVAD BARFIELD Ot Z79.899 OTHER [facility] (CURRENT) DRUG THERAPY 09/27/2016 JAVAD BARFIELD Ot Z95.2 PRESENCE OF PROSTHETIC HEART VALVE 09/27/2016 SYED SANTO MD, Ot R19.7 DIARRHEA, UNSPECIFIED 09/29/2016 ARISTIDES SUN DO, Ot I10 ESSENTIAL (PRIMARY) HYPERTENSION 09/29/2016 ARISTIDES SUN DO, Ot J34.89 OTHER SPECIFIED DISORDERS OF NOSE AND NA 09/29/2016 ARISTIDES SUN DO, Ot M47.812 SPONDYLOSIS W/O MYELOPATHY OR RADICULOPA 09/29/2016 ARISTIDES SUN DO, Ot S00.83XA CONTUSION OF OTHER PART OF HEAD, INITIAL 09/29/2016 ARISTIDES SUN DO, Ot S09.90XA UNSPECIFIED INJURY OF HEAD, INITIAL ENCO 09/29/2016 ARISTIDES SUN DO, Ot W06.XXXA FALL FROM BED, INITIAL ENCOUNTER 09/29/2016 ARISTIDES SUN DO, Ot Y92.[address] 09/29/2016 ARISTIDES SUN DO, Ot Y99.8 OTHER EXTERNAL CAUSE STATUS 09/29/2016 ARISTIDES SUN DO, Ot Z79.82 MEDICAL INSTRUCTOR (CURRENT) USE OF ASPIRIN 09/29/2016 ARISTIDES SUN DO, Ot Z79.899 OTHER [facility] (CURRENT) DRUG THERAPY 09/29/2016 ARISTIDES SUN DO, Ot Z95.1 PRESENCE OF AORTOCORONARY BYPASS GRAFT 10/07/2016 Ot 401.9 HYPERTENSION NOS 10/07/2016 Ot 414.00 CORON ATHEROSCLER NOS TYPE VESSEL, NATIV 10/07/2016 JAVAD BARFIELD Ot 280.9 IRON DEFIC ANEMIA NOS 10/07/2016 JAVAD BARFIELD Ot 281.1 B12 DEFIC ANEMIA NEC 10/07/2016 JAVAD BARFIELD Ot V43.3 HEART VALVE REPLAC NEC 10/07/2016 JAVAD BARFIELD Ot V58.61 ANTICOAGULANTS,LT,CURRENT USE 10/07/2016 JAVAD BARFIELD Ot V58.69 OTH MED,LT,CURRENT USE 10/07/2016 Ot 280.9 IRON DEFIC ANEMIA NOS 10/07/2016 Ot 281.1 B12 DEFIC ANEMIA NEC 10/07/2016 Ot V43.3 HEART VALVE REPLAC NEC 10/07/2016 Ot V58.61 ANTICOAGULANTS,LT,CURRENT USE 10/07/2016 Ot V58.69 OTH MED,LT, CURRENT USE 10/07/2016 ENID ESTEVES MD Ot 272.4 HYPERLIPIDEMIA NEC/NOS 10/07/2016 ENID ESTEVES MD Ot 397.0 TRICUSPID VALVE DISEASE 10/07/2016 ENID ESTEVES MD Ot 401.9 HYPERTENSION NOS 10/07/2016 ENID ESTEVES MD Ot 414.00 CORON ATHEROSCLER NOS TYPE VESSEL, NATIV 10/07/2016 ENID ESTEVES MD Ot 424.0 MITRAL VALVE DISORDER 10/07/2016 ENID ESTEVES MD Ot 428.0 CONGESTIVE HEART FAILURE NOS 10/07/2016 ENID ESTEVES MD Ot 429.3 CARDIOMEGALY 10/07/2016 ENID ESTEVES MD Ot V43.3 HEART VALVE REPLAC NEC 10/07/2016 JAVAD BARFIELD N Ot 272.4 HYPERLIPIDEMIA NEC/NOS 10/07/2016 JAVAD BARFIELD N Ot 280.9 IRON DEFIC ANEMIA NOS 10/07/2016 JAVAD BARFIELD N Ot 281.1 B12 DEFIC ANEMIA NEC 10/07/2016 JAVAD BARFIELD N Ot 285.21 ANEMIA IN CHRONIC KIDNEY DISEASE 10/07/2016 JAVAD BARFIELD Ot 403.90 HYPTNSV CHR KID DIS, UNSPEC, W CHR KD ST 10/07/2016 JAVAD BARFIELD N Ot 414.00 CORON ATHEROSCLER NOS TYPE VESSEL, NATIV 10/07/2016 JAVAD BARFIELD N Ot 585.3 CHRONIC KIDNEY DISEASE, STAGE III (MODER 10/07/2016 JAVAD BARFIELD N Ot V43.3 HEART VALVE REPLAC NEC 10/07/2016 JAVAD BARFIELD N Ot V58.61 ANTICOAGULANTS,LT,CURRENT USE 10/07/2016 JAVAD BARFIELD Ot V58.69 OTH MED,LT,CURRENT USE 10/07/2016 ARNOLDO PARRISH PROCESS COACH Ot 272.4 HYPERLIPIDEMIA NEC/NOS 10/07/2016 ARNOLDO PARRISH PROCESS COACH Ot 280.9 IRON DEFIC ANEMIA NOS 10/07/2016 ARNOLDO PARRISH PROCESS COACH Ot 281.1 B12 DEFIC ANEMIA NEC 10/07/2016 ARNOLDO PARRISH S PROCESS COACH Ot 285.21 ANEMIA IN CHRONIC KIDNEY DISEASE 10/07/2016 ARNOLDO PARRISH PROCESS COACH Ot 403.90 HYPTNSV CHR KID DIS, UNSPEC, W CHR KD ST 10/07/2016 ARNOLDO PARRISH PROCESS COACH Ot 414.00 CORON ATHEROSCLER NOS TYPE VESSEL, NATIV 10/07/2016 ARNOLDO PARRISH PROCESS COACH Ot 585.3 CHRONIC KIDNEY DISEASE, STAGE III (MODER 10/07/2016 ARNOLDO PARRISH PROCESS COACH Ot V43.3 HEART VALVE REPLAC NEC 10/07/2016 ARNOLDO PARRISH PROCESS COACH Ot V58.61 ANTICOAGULANTS,LT,CURRENT USE 10/07/2016 ARNOLDO PARRISH PROCESS COACH Ot V58.69 OTH MED,LT,CURRENT USE 10/07/2016 FÁTIMA MATHEWS K Ot 272.4 HYPERLIPIDEMIA NEC/NOS 10/07/2016 FÁTIMA MATHEWS K Ot 401.9 HYPERTENSION NOS 10/07/2016 FÁTIMA MATHEWS K Ot 414.00 CORON ATHEROSCLER NOS TYPE VESSEL, NATIV 10/07/2016 FÁTIMA MATHEWS K Ot 428.0 CONGESTIVE HEART FAILURE NOS 10/07/2016 FÁTIMA MATHEWS K Ot 272.4 HYPERLIPIDEMIA NEC/NOS 10/07/2016 FÁTIMA MATHEWS K Ot 401.9 HYPERTENSION NOS 10/07/2016 FÁTIMA MATHEWS K Ot 414.00 CORON ATHEROSCLER NOS TYPE VESSEL, NATIV 10/07/2016 FÁTIMA MATHEWS K Ot 428.0 CONGESTIVE HEART FAILURE NOS 10/07/2016 JAVAD BARFIELD Ot 272.4 HYPERLIPIDEMIA NEC/NOS 10/07/2016 JAVAD BARFIELD N Ot 280.9 IRON DEFIC ANEMIA NOS 10/07/2016 JAVAD BARFIELD N Ot 281.1 B12 DEFIC ANEMIA NEC 10/07/2016 JAVAD BARFIELD N Ot 285.21 ANEMIA IN CHRONIC KIDNEY DISEASE 10/07/2016 JAVAD BARFIELD N Ot 403.90 HYPTNSV CHR KID DIS, UNSPEC, W CHR KD ST 10/07/2016 JAVAD BARFIELD Sarah Ot 414.00 CORON ATHEROSCLER NOS TYPE VESSEL, NATIV 10/07/2016 LICO, JAVAD Smith Ot 585.3 CHRONIC KIDNEY DISEASE, STAGE III (MODER 10/07/2016 LICO JAVAD Smith Ot V43.3 HEART VALVE REPLAC NEC 10/07/2016 LICO RAKELJOSEPH Sarah Ot V58.61 ANTICOAGULANTS,LT,CURRENT USE 10/07/2016 LICO JAVAD Smith Ot V58.69 OTH MED,LT,CURRENT USE 10/07/2016 ARNOLDO PARRISH PROCESS COACH Ot 280.9 IRON DEFIC ANEMIA NOS 10/07/2016 ARNOLDO PARRISH PROCESS COACH Ot 281.1 B12 DEFIC ANEMIA NEC 10/07/2016 ARNOLDO PARRISH PROCESS COACH Ot 533.90 PEPTIC ULCER NOS 10/07/2016 ARNOLDO PARRISHP Ot V43.3 HEART VALVE REPLAC NEC 10/07/2016 ARNOLDO PARRISH PROCESS COACH Ot V58.61 ANTICOAGULANTS,LT,CURRENT USE 10/07/2016 ARNOLDO PARRISH PROCESS COACH Ot V58.69 OTH MED,LT,CURRENT USE 10/07/2016 ARNOLDO PARRISH PROCESS COACH Ot D50.9 IRON DEFICIENCY ANEMIA, UNSPECIFIED 10/07/2016 ARNOLDO PARRISH PROCESS COACH Ot D51.8 OTHER VITAMIN B12 DEFICIENCY ANEMIAS 10/07/2016 ARNOLDO PARRISH PROCESS COACH Ot D63.1 ANEMIA IN CHRONIC KIDNEY DISEASE 10/07/2016 ARNOLDO PARRISHP Ot E78.5 HYPERLIPIDEMIA, UNSPECIFIED 10/07/2016 ARNOLDO PARRISHP Ot I12.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 10/07/2016 ARNOLDO PARRISH PROCESS COACH Ot I25.10 ATHSCL HEART DISEASE OF [place] CORONARY 10/07/2016 ARNOLDO PARRISH PROCESS COACH Ot N18.3 CHRONIC KIDNEY DISEASE, STAGE 3 (MODERAT 10/07/2016 ARNOLDO PARRISH PROCESS COACH Ot Z79.01 [facility] (CURRENT) USE OF ANTICOAGULANT 10/07/2016 ARNOLDO PARRISH PROCESS COACH Ot Z79.899 OTHER MEDICAL INSTRUCTOR (CURRENT) DRUG THERAPY 10/07/2016 ARNOLDO PARRISH PROCESS COACH Ot Z95.2 PRESENCE OF PROSTHETIC HEART VALVE 10/07/2016 JAVAD BARFIELD N Ot D50.9 IRON DEFICIENCY ANEMIA, UNSPECIFIED 10/07/2016 LICO, JAVAD N Ot D51.8 OTHER VITAMIN B12 DEFICIENCY ANEMIAS 10/07/2016 LICO JAVAD N Ot D63.1 ANEMIA IN CHRONIC KIDNEY DISEASE 10/07/2016 LICO RAKELJOSEPH N Ot E78.5 HYPERLIPIDEMIA, UNSPECIFIED 10/07/2016 LICO, JAVAD N Ot I12.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 10/07/2016 LICO JAVAD N Ot I25.10 ATHSCL HEART DISEASE OF [place] CORONARY 10/07/2016 LICO JAVAD N Ot N18.3 CHRONIC KIDNEY DISEASE, STAGE 3 (MODERAT 10/07/2016 JAVAD BARFIELD N Ot Z79.01 [facility] (CURRENT) USE OF ANTICOAGULANT 10/07/2016 JAVAD BARFIELD N Ot Z79.899 OTHER MEDICAL INSTRUCTOR (CURRENT) DRUG THERAPY 10/07/2016 JAVAD BARFIELD N Ot Z95.2 PRESENCE OF PROSTHETIC HEART VALVE 10/07/2016 GAL PERSON, SYED Resendez Ot R19.7 DIARRHEA, UNSPECIFIED 10/08/2016 LICOJAVAD N Ot D50.9 IRON DEFICIENCY ANEMIA, UNSPECIFIED 10/08/2016 JAVAD BARFIELD N Ot D51.8 OTHER VITAMIN B12 DEFICIENCY ANEMIAS 10/08/2016 JAVAD BARFIELD N Ot D63.1 ANEMIA IN CHRONIC KIDNEY DISEASE 10/08/2016 LICOJAVAD Ot E78.5 HYPERLIPIDEMIA, UNSPECIFIED 10/08/2016 LICOJAVAD N Ot I12.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 10/08/2016 JAVAD BARFIELD Ot I25.10 ATHSCL HEART DISEASE OF [place] CORONARY 10/08/2016 LICOJAVAD N Ot N18.3 CHRONIC KIDNEY DISEASE, STAGE 3 (MODERAT 10/08/2016 LICOJAVAD ASHBY N Ot Z79.01 [facility] (CURRENT) USE OF ANTICOAGULANT 10/08/2016 JAVAD BARFIELD N Ot Z79.899 OTHER MEDICAL INSTRUCTOR (CURRENT) DRUG THERAPY 10/08/2016 LICOJAVAD ASHBY N Ot Z95.2 PRESENCE OF PROSTHETIC HEART VALVE 10/13/2016 JAVAD BARFIELD N Ot D50.9 IRON DEFICIENCY ANEMIA, UNSPECIFIED 10/13/2016 LICO JAVAD N Ot D51.8 OTHER VITAMIN B12 DEFICIENCY ANEMIAS 10/13/2016 LICOJAVAD N Ot D63.1 ANEMIA IN CHRONIC KIDNEY DISEASE 10/13/2016 LICO JAVAD N Ot E78.5 HYPERLIPIDEMIA, UNSPECIFIED 10/13/2016 LICO, JAVAD N Ot I12.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 10/13/2016 LICO, JAVAD N Ot I25.10 ATHSCL HEART DISEASE OF [place] CORONARY 10/13/2016 LICO JAVAD N Ot N18.3 CHRONIC KIDNEY DISEASE, STAGE 3 (MODERAT 10/13/2016 LICOJAVAD N Ot 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 10/13/2016 JAVAD BARFIELD N Ot Z79.899 OTHER MEDICAL INSTRUCTOR (CURRENT) DRUG THERAPY 10/13/2016 JAVAD BARFIELD N Ot Z95.2 PRESENCE OF PROSTHETIC HEART VALVE 11/17/2016 JAVAD BARFIELD N Ot D50.9 IRON DEFICIENCY ANEMIA, UNSPECIFIED 11/17/2016 JAVAD BARFIELD N Ot D51.8 OTHER VITAMIN B12 DEFICIENCY ANEMIAS 11/17/2016 JAVAD BARFIELD N Ot D63.1 ANEMIA IN CHRONIC KIDNEY DISEASE 11/17/2016 LICOJAVAD N Ot E78.5 HYPERLIPIDEMIA, UNSPECIFIED 11/17/2016 LICOJAVAD N Ot I12.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 11/17/2016 LICOJAVAD N Ot I25.10 ATHSCL HEART DISEASE OF [place] CORONARY 11/17/2016 LICOJAVAD N Ot N18.3 CHRONIC KIDNEY DISEASE, STAGE 3 (MODERAT 11/17/2016 LICOJAVAD ASHBY N Ot 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 11/17/2016 JAVAD BARFIELD N Ot Z79.899 OTHER MEDICAL INSTRUCTOR (CURRENT) DRUG THERAPY 11/17/2016 JAVAD BARFIELD N Ot Z95.2 PRESENCE OF PROSTHETIC HEART VALVE 11/25/2016 JAVAD BARFIELD N Ot D50.9 IRON DEFICIENCY ANEMIA, UNSPECIFIED 11/25/2016 LICOJAVAD N Ot D51.8 OTHER VITAMIN B12 DEFICIENCY ANEMIAS 11/25/2016 JAVAD BARFIELD N Ot D63.1 ANEMIA IN CHRONIC KIDNEY DISEASE 11/25/2016 LICO, BOBAN N Ot E78.5 HYPERLIPIDEMIA, UNSPECIFIED 11/25/2016 LICO, RAKELAN N Ot I12.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 11/25/2016 LICORAKELAN N Ot I25.10 ATHSCL HEART DISEASE OF [place] CORONARY 11/25/2016 LICO JAVAD N Ot N18.3 CHRONIC KIDNEY DISEASE, STAGE 3 (MODERAT 11/25/2016 LICOJAVAD N Ot 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 11/25/2016 LICORAKELAN N Ot Z79.899 OTHER [facility] (CURRENT) DRUG THERAPY 11/25/2016 LICO, RAKELAN N Ot Z95.2 PRESENCE OF PROSTHETIC HEART VALVE 01/05/2017 LICOJAVAD ASHBY N Ot D50.9 IRON DEFICIENCY ANEMIA, UNSPECIFIED 01/05/2017 LICO BOBAN N Ot D51.8 OTHER VITAMIN B12 DEFICIENCY ANEMIAS 01/05/2017 LICOJAVAD N Ot D63.1 ANEMIA IN CHRONIC KIDNEY DISEASE 01/05/2017 LICORAKELAN N Ot E78.5 HYPERLIPIDEMIA, UNSPECIFIED 01/05/2017 LICO, BOBAN N Ot I12.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 01/05/2017 LICORAKELAN N Ot I25.10 ATHSCL HEART DISEASE OF [place] CORONARY 01/05/2017 LICOJAVAD N Ot N18.3 CHRONIC KIDNEY DISEASE, STAGE 3 (MODERAT 01/05/2017 ILCOJAVAD N Ot Z79.01 [facility] (CURRENT) USE OF ANTICOAGULANT 01/05/2017 LICOJAVAD N Ot Z79.899 OTHER MEDICAL INSTRUCTOR (CURRENT) DRUG THERAPY 01/05/2017 LICORAKELAN N Ot Z95.2 PRESENCE OF PROSTHETIC HEART VALVE 01/06/2017 LICORAKELAN N Ot D50.9 IRON DEFICIENCY ANEMIA, UNSPECIFIED 01/06/2017 LICO BOBAN N Ot D51.8 OTHER VITAMIN B12 DEFICIENCY ANEMIAS 01/06/2017 LICO BOBAN N Ot D63.1 ANEMIA IN CHRONIC KIDNEY DISEASE 01/06/2017 LICORAKELAN N Ot E78.5 HYPERLIPIDEMIA, UNSPECIFIED 01/06/2017 LICO BOBAN N Ot I12.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 01/06/2017 LICORAKELAN N Ot I25.10 ATHSCL HEART DISEASE OF [place] CORONARY 01/06/2017 JAVAD BARFIELD N Ot N18.3 CHRONIC KIDNEY DISEASE, STAGE 3 (MODERAT 01/06/2017 JAVAD BARFIELD N Ot Z79.01 [facility] (CURRENT) USE OF ANTICOAGULANT 01/06/2017 JAVAD BARFIELD N Ot Z79.899 OTHER [facility] (CURRENT) DRUG THERAPY 01/06/2017 JAVAD BARFIELD N Ot Z95.2 PRESENCE OF PROSTHETIC HEART VALVE 01/11/2017 JAVAD BARFIELD N Ot D50.9 IRON DEFICIENCY ANEMIA, UNSPECIFIED 01/11/2017 JAVAD BARFIELD N Ot D51.8 OTHER VITAMIN B12 DEFICIENCY ANEMIAS 01/11/2017 JAVAD BARFIELD N Ot D63.1 ANEMIA IN CHRONIC KIDNEY DISEASE 01/11/2017 JAVAD BARFIELD N Ot E78.5 HYPERLIPIDEMIA, UNSPECIFIED 01/11/2017 JAVAD BARFIELD N Ot I12.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 01/11/2017 JAVAD BARFIELD N Ot I25.10 ATHSCL HEART DISEASE OF [place] CORONARY 01/11/2017 JAVAD BARFIELD N Ot N18.3 CHRONIC KIDNEY DISEASE, STAGE 3 (MODERAT 01/11/2017 JAVAD BARFIELD N Ot Z79.01 [facility] (CURRENT) USE OF ANTICOAGULANT 01/11/2017 JAVAD BARFIELD N Ot Z79.899 OTHER [facility] (CURRENT) DRUG THERAPY 01/11/2017 JAVAD BARFIELD N Ot Z95.2 PRESENCE OF PROSTHETIC HEART VALVE 02/24/2017 JANKI PIZANO APRN Ot D32.0 BENIGN NEOPLASM OF CEREBRAL MENINGES 02/24/2017 JANKI PIZANO MOTOR VEHICLE PARTS INTERPRETER Ot I10 ESSENTIAL (PRIMARY) HYPERTENSION 02/24/2017 JANKI PIZANO APRN Ot I25.10 ATHSCL HEART DISEASE OF [place] CORONARY 02/24/2017 JANKI PIZANO APRN Ot J34.9 UNSPECIFIED DISORDER OF NOSE AND NASAL S 02/24/2017 JANKI PIZANO APRN Ot K57.30 DVRTCLOS OF LG INT W/O PERFORATION OR AB 02/24/2017 JANKI PIZANO APRN Ot K59.00 CONSTIPATION, UNSPECIFIED 02/24/2017 JANKI PIZANO APRN Ot M47.816 SPONDYLOSIS W/O MYELOPATHY OR RADICULOPA 02/24/2017 JANKI PIZANO APRN Ot S01.01XA LACERATION WITHOUT FOREIGN BODY OF SCALP 02/24/2017 JANKI PIZANO APRN Ot S29.9XXA UNSPECIFIED INJURY OF THORAX, INITIAL EN 02/24/2017 JANKI PIZANO APRN Ot S50.311A ABRASION OF RIGHT ELBOW, INITIAL ENCOUNT 02/24/2017 JANKI PIZANO APRN Ot W06.XXXA FALL FROM BED, INITIAL ENCOUNTER 02/24/2017 JANKI PIZANO APRN Ot Y92.219 [facility] THE PLACE OF OCCURRENCE O 02/24/2017 JANKI PIZANO APRN Ot Y99.8 OTHER EXTERNAL CAUSE STATUS 02/24/2017 JANKI PIZANO APRN Ot Z23 ENCOUNTER FOR IMMUNIZATION 02/24/2017 JANKI PIZANO APRN Ot Z79.82 MEDICAL INSTRUCTOR (CURRENT) USE OF ASPIRIN 02/24/2017 JANKI PIZANO APRN Ot Z95.1 PRESENCE OF AORTOCORONARY BYPASS GRAFT 02/27/2017 JANKI PZIANO APRN Ot D32.0 BENIGN NEOPLASM OF CEREBRAL MENINGES 02/27/2017 JANKI PIZANO APRN Ot I10 ESSENTIAL (PRIMARY) HYPERTENSION 02/27/2017 JANKI PIZANO APRN Ot I25.10 ATHSCL HEART DISEASE OF [place] CORONARY 02/27/2017 JANKI PIZANO APRN Ot J34.9 UNSPECIFIED DISORDER OF NOSE AND NASAL S 02/27/2017 JANKI PIZANO APRN Ot K57.30 DVRTCLOS OF LG INT W/O PERFORATION OR AB 02/27/2017 JANKI PIZANO APRN Ot K59.00 CONSTIPATION, UNSPECIFIED 02/27/2017 JANKI PIZANO APRN Ot M47.816 SPONDYLOSIS W/O MYELOPATHY OR RADICULOPA 02/27/2017 JANKI PIZANO APRN Ot S01.01XA LACERATION WITHOUT FOREIGN BODY OF SCALP 02/27/2017 JANKI PIZANO APRN Ot S29.9XXA UNSPECIFIED INJURY OF THORAX, INITIAL EN 02/27/2017 JANKI PIZANO APRN Ot S50.311A ABRASION OF RIGHT ELBOW, INITIAL ENCOUNT 02/27/2017 JANKI PIZANO APRN Ot W06.XXXA FALL FROM BED, INITIAL ENCOUNTER 02/27/2017 JANKI PIZANO APRN Ot Y92.219 [facility] THE PLACE OF OCCURRENCE O 02/27/2017 JANKI PIZANO APRN Ot Y99.8 OTHER EXTERNAL CAUSE STATUS 02/27/2017 JANKI PIZANO APRN Ot Z23 ENCOUNTER FOR IMMUNIZATION 02/27/2017 JANKI PIZANO APRN Ot Z79.82 [facility] (CURRENT) USE OF ASPIRIN 02/27/2017 JANKI PIZANO APRN Ot Z95.1 PRESENCE OF AORTOCORONARY BYPASS GRAFT 03/15/2017 JANKI PIZANO APRN Ot D32.0 BENIGN NEOPLASM OF CEREBRAL MENINGES 03/15/2017 JANKI PIZANO APRN Ot I10 ESSENTIAL (PRIMARY) HYPERTENSION 03/15/2017 JANKI PIZANO APRN Ot I25.10 ATHSCL HEART DISEASE OF [place] CORONARY 03/15/2017 JANKI PIZANO APRN Ot J34.9 UNSPECIFIED DISORDER OF NOSE AND NASAL S 03/15/2017 JANKI PIZANO APRN Ot K57.30 DVRTCLOS OF LG INT W/O PERFORATION OR AB 03/15/2017 JANKI PIZANO APRN Ot K59.00 CONSTIPATION, UNSPECIFIED 03/15/2017 JANKI PIZANO APRN Ot M47.816 SPONDYLOSIS W/O MYELOPATHY OR RADICULOPA 03/15/2017 JANKI PIZANO APRN Ot S01.01XA LACERATION WITHOUT FOREIGN BODY OF SCALP 03/15/2017 JANKI PIZANO APRN Ot S29.9XXA UNSPECIFIED INJURY OF THORAX, INITIAL EN 03/15/2017 JANKI PIZANO APRN Ot S50.311A ABRASION OF RIGHT ELBOW, INITIAL ENCOUNT 03/15/2017 JANKI PIZANO APRN Ot W06.XXXA FALL FROM BED, INITIAL ENCOUNTER 03/15/2017 JANKI PIZANO APRN Ot Y92.219 [facility] THE PLACE OF OCCURRENCE O 03/15/2017 JANKI PIZANO APRN Ot Y99.8 OTHER EXTERNAL CAUSE STATUS 03/15/2017 JANKI PIZANO APRN Ot Z23 ENCOUNTER FOR IMMUNIZATION 03/15/2017 JANKI PIZANO APRN Ot Z79.82 MEDICAL INSTRUCTOR (CURRENT) USE OF ASPIRIN 03/15/2017 JANKI PIZANO APRN Ot Z95.1 PRESENCE OF AORTOCORONARY BYPASS GRAFT 06/21/2017 Ot 401.9 HYPERTENSION NOS 06/21/2017 Ot 414.00 CORON ATHEROSCLER NOS TYPE VESSEL, NATIV 06/21/2017 JAVAD BARFIELD Ot 280.9 IRON DEFIC ANEMIA NOS 06/21/2017 JAVAD BARFIELD N Ot 281.1 B12 DEFIC ANEMIA NEC 06/21/2017 JAVAD BARFIELD Ot V43.3 HEART VALVE REPLAC NEC 06/21/2017 JAVAD BARFIELD Ot V58.61 ANTICOAGULANTS,LT,CURRENT USE 06/21/2017 JAVAD BARFIELD Ot V58.69 OTH MED,LT,CURRENT USE 06/21/2017 Ot 280.9 IRON DEFIC ANEMIA NOS 06/21/2017 Ot 281.1 B12 DEFIC ANEMIA NEC 06/21/2017 Ot V43.3 HEART VALVE REPLAC NEC 06/21/2017 Ot V58.61 ANTICOAGULANTS,LT,CURRENT USE 06/21/2017 Ot V58.69 OTH MED,LT, CURRENT USE 06/21/2017 DANIELITO PERSON, ENID Ellison Ot 272.4 HYPERLIPIDEMIA NEC/NOS 06/21/2017 DANIELITO PERSON, ENID Ellison Ot 397.0 TRICUSPID VALVE DISEASE 06/21/2017 ENID ESTEVES MD Ot 401.9 HYPERTENSION NOS 06/21/2017 DANIELITO PERSON, ENID Ellison Ot 414.00 CORON ATHEROSCLER NOS TYPE VESSEL, NATIV 06/21/2017 DANIELITO PERSON, ENID Ellison Ot 424.0 MITRAL VALVE DISORDER 06/21/2017 ENID ESTEVES MD Ot 428.0 CONGESTIVE HEART FAILURE NOS 06/21/2017 DANIELITO PERSON, ENID Ellison Ot 429.3 CARDIOMEGALY 06/21/2017 ENID ESTEVES MD Ot V43.3 HEART VALVE REPLAC NEC 06/21/2017 JAVAD BARFIELD Ot 272.4 HYPERLIPIDEMIA NEC/NOS 06/21/2017 JAVAD BARFIELD Ot 280.9 IRON DEFIC ANEMIA NOS 06/21/2017 JAVAD BARFIELD Ot 281.1 B12 DEFIC ANEMIA NEC 06/21/2017 JAVAD BARFIELD Ot 285.21 ANEMIA IN CHRONIC KIDNEY DISEASE 06/21/2017 JAVAD BARFIELD Ot 403.90 HYPTNSV CHR KID DIS, UNSPEC, W CHR KD ST 06/21/2017 JAVAD BARFIELD Ot 414.00 CORON ATHEROSCLER NOS TYPE VESSEL, NATIV 06/21/2017 JAVAD BARFIELD Sarah Ot 585.3 CHRONIC KIDNEY DISEASE, STAGE III (MODER 06/21/2017 RAKEL BARFIELDJOSEPH Smith Ot V43.3 HEART VALVE REPLAC NEC 06/21/2017 LICO JAVAD Smith Ot V58.61 ANTICOAGULANTS,LT,CURRENT USE 06/21/2017 JAVAD BARFIELD Sarah Ot V58.69 OTH MED,LT,CURRENT USE 06/21/2017 PARRISHARNOLDO Kyle S PROCESS COACH Ot 272.4 HYPERLIPIDEMIA NEC/NOS 06/21/2017 PARRISH, HILAH S PROCESS COACH Ot 280.9 IRON DEFIC ANEMIA NOS 06/21/2017 PARRISH, HILAH S PROCESS COACH Ot 281.1 B12 DEFIC ANEMIA NEC 06/21/2017 SHIVANI HILAH S PROCESS COACH Ot 285.21 ANEMIA IN CHRONIC KIDNEY DISEASE 06/21/2017 SHIVANI HILAH S PROCESS COACH Ot 403.90 HYPTNSV CHR KID DIS, UNSPEC, W CHR KD ST 06/21/2017 MANAS PARRISHAH S PROCESS COACH Ot 414.00 CORON ATHEROSCLER NOS TYPE VESSEL, NATIV 06/21/2017 ARNOLDO PARRISH S PROCESS COACH Ot 585.3 CHRONIC KIDNEY DISEASE, STAGE III (MODER 06/21/2017 ARNOLDO PARRISH S PROCESS COACH Ot V43.3 HEART VALVE REPLAC NEC 06/21/2017 SHIVANI HILAH S PROCESS COACH Ot V58.61 ANTICOAGULANTS,LT,CURRENT USE 06/21/2017 ARNOLDO PARRISH S PROCESS COACH Ot V58.69 OTH MED,LT,CURRENT USE 06/21/2017 FÁTIMA MATHEWS Ot 272.4 HYPERLIPIDEMIA NEC/NOS 06/21/2017 FÁTIMA MATHEWS Ot 401.9 HYPERTENSION NOS 06/21/2017 FÁTIMA MATHEWS Ot 414.00 CORON ATHEROSCLER NOS TYPE VESSEL, NATIV 06/21/2017 FÁTIMA MATHEWS Ot 428.0 CONGESTIVE HEART FAILURE NOS 06/21/2017 FÁTIMA MATHEWS Ot 272.4 HYPERLIPIDEMIA NEC/NOS 06/21/2017 FÁTIMA MATHEWS Ot 401.9 HYPERTENSION NOS 06/21/2017 FÁTIMA MATHEWS Ot 414.00 CORON ATHEROSCLER NOS TYPE VESSEL, NATIV 06/21/2017 BLAS HAWK, FÁTIMA Goodwin Ot 428.0 CONGESTIVE HEART FAILURE NOS 06/21/2017 JAVAD BARFIELD Ot 272.4 HYPERLIPIDEMIA NEC/NOS 06/21/2017 JAVAD BARFIELD N Ot 280.9 IRON DEFIC ANEMIA NOS 06/21/2017 JAVAD BARFIELD N Ot 281.1 B12 DEFIC ANEMIA NEC 06/21/2017 JAVAD BARFIELD N Ot 285.21 ANEMIA IN CHRONIC KIDNEY DISEASE 06/21/2017 JAVAD BARFIELD N Ot 403.90 HYPTNSV CHR KID DIS, UNSPEC, W CHR KD ST 06/21/2017 JAVAD BARFIELD N Ot 414.00 CORON ATHEROSCLER NOS TYPE VESSEL, NATIV 06/21/2017 JAVAD BARFIELD N Ot 585.3 CHRONIC KIDNEY DISEASE, STAGE III (MODER 06/21/2017 JAVAD BARFIELD N Ot V43.3 HEART VALVE REPLAC NEC 06/21/2017 JAVAD BARFIELD N Ot V58.61 ANTICOAGULANTS,LT,CURRENT USE 06/21/2017 JAVAD BARFIELD Ot V58.69 OTH MED,LT,CURRENT USE 06/21/2017 ARNOLDO PARRISH PROCESS COACH Ot 280.9 IRON DEFIC ANEMIA NOS 06/21/2017 ARNOLDO PARRISH PROCESS COACH Ot 281.1 B12 DEFIC ANEMIA NEC 06/21/2017 ARNOLDO PARRISH PROCESS COACH Ot 533.90 PEPTIC ULCER NOS 06/21/2017 ARNOLDO PARRISH PROCESS COACH Ot V43.3 HEART VALVE REPLAC NEC 06/21/2017 ARNOLDO PARRISH PROCESS COACH Ot V58.61 ANTICOAGULANTS,LT,CURRENT USE 06/21/2017 ARNOLDO PARRISH PROCESS COACH Ot V58.69 OTH MED,LT,CURRENT USE 06/21/2017 ARNOLDO PARRISH PROCESS COACH Ot D50.9 IRON DEFICIENCY ANEMIA, UNSPECIFIED 06/21/2017 ARNOLDO PARRISHP Ot D51.8 OTHER VITAMIN B12 DEFICIENCY ANEMIAS 06/21/2017 ARNOLDO PARRISH PROCESS COACH Ot D63.1 ANEMIA IN CHRONIC KIDNEY DISEASE 06/21/2017 ARNOLDO PARRISH PROCESS COACH Ot E78.5 HYPERLIPIDEMIA, UNSPECIFIED 06/21/2017 ARNOLDO PARRISH PROCESS COACH Ot I12.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 06/21/2017 ARNOLDO PARRISH Ot I25.10 ATHSCL HEART DISEASE OF [place] CORONARY 06/21/2017 ARNOLDO PARRISH Ot N18.3 CHRONIC KIDNEY DISEASE, STAGE 3 (MODERAT 06/21/2017 ARNOLDO PARRISH Ot 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 06/21/2017 ARNOLDO PARRISH Ot Z79.899 OTHER [facility] (CURRENT) DRUG THERAPY 06/21/2017 ARNOLDO PARRISH Ot Z95.2 PRESENCE OF PROSTHETIC HEART VALVE 06/21/2017 SYED SANTO MD Ot R19.7 DIARRHEA, UNSPECIFIED 06/21/2017 EMIR PAYNE MD, Ot E78.00 PURE HYPERCHOLESTEROLEMIA, UNSPECIFIED 06/21/2017 EMIR PAYNE MD Ot I10 ESSENTIAL (PRIMARY) HYPERTENSION 06/21/2017 EMIR PAYNE MD Ot I25.10 ATHSCL HEART DISEASE OF [place] CORONARY 06/21/2017 EMIR PAYNE MD Ot R51 HEADACHE 06/21/2017 EMIR PAYNE MD Ot S09.90XA UNSPECIFIED INJURY OF HEAD, INITIAL ENCO 06/21/2017 EMIR PAYNE MD Ot W19.XXXA UNSPECIFIED FALL, INITIAL ENCOUNTER 06/21/2017 EMIR PAYNE MD Ot 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 06/21/2017 EMIR PAYNE MD Ot Z79.82 [facility] (CURRENT) USE OF ASPIRIN 06/21/2017 EMIR PAYNE MD Ot Z87.891 PERSONAL HISTORY OF NICOTINE DEPENDENCE 06/21/2017 EMIR PAYNE MD Ot Z95.1 PRESENCE OF AORTOCORONARY BYPASS GRAFT 06/21/2017 EMIR PAYNE MD Ot Z95.2 PRESENCE OF PROSTHETIC HEART VALVE 08/15/2017 SYED SANTO MD Ot D64.9 ANEMIA, UNSPECIFIED 08/15/2017 SYED SANTO MD Ot Z79.01 [facility] (CURRENT) USE OF ANTICOAGULANT 08/15/2017 Ot 401.9 HYPERTENSION NOS 08/15/2017 Ot 414.00 CORON ATHEROSCLER NOS TYPE VESSEL, NATIV 08/15/2017 JAVAD BARFIELD Ot 280.9 IRON DEFIC ANEMIA NOS 08/15/2017 LICO, BOBAN N Ot 281.1 B12 DEFIC ANEMIA NEC 08/15/2017 JAVAD BARFIELD N Ot V43.3 HEART VALVE REPLAC NEC 08/15/2017 JAVAD BARFIELD N Ot V58.61 ANTICOAGULANTS,LT,CURRENT USE 08/15/2017 JAVAD BARFIELD N Ot V58.69 OTH MED,LT,CURRENT USE 08/15/2017 Ot 280.9 IRON DEFIC ANEMIA NOS 08/15/2017 Ot 281.1 B12 DEFIC ANEMIA NEC 08/15/2017 Ot V43.3 HEART VALVE REPLAC NEC 08/15/2017 Ot V58.61 ANTICOAGULANTS,LT,CURRENT USE 08/15/2017 Ot V58.69 OTH MED,LT, CURRENT USE 08/15/2017 DANIELITO PERSON, ENID Ellison Ot 272.4 HYPERLIPIDEMIA NEC/NOS 08/15/2017 DANIELITO PERSON, ENID J Ot 397.0 TRICUSPID VALVE DISEASE 08/15/2017 DANIELITO PERSON, ENID J Ot 401.9 HYPERTENSION NOS 08/15/2017 DANIELITO PERSON, ENID Ellison Ot 414.00 CORON ATHEROSCLER NOS TYPE VESSEL, NATIV 08/15/2017 DANIELITO PERSON, ENID J Ot 424.0 MITRAL VALVE DISORDER 08/15/2017 DANIELITO PERSON, ENID Ellison Ot 428.0 CONGESTIVE HEART FAILURE NOS 08/15/2017 DANIELITO PERSON, ENID J Ot 429.3 CARDIOMEGALY 08/15/2017 DANIELITO PERSON, ENID Ellison Ot V43.3 HEART VALVE REPLAC NEC 08/15/2017 JAVAD BARFIELD N Ot 272.4 HYPERLIPIDEMIA NEC/NOS 08/15/2017 JAVAD BARFIELD N Ot 280.9 IRON DEFIC ANEMIA NOS 08/15/2017 JAVAD BARFIELD N Ot 281.1 B12 DEFIC ANEMIA NEC 08/15/2017 JAVAD BARFIELD N Ot 285.21 ANEMIA IN CHRONIC KIDNEY DISEASE 08/15/2017 JAVAD BARFIELD N Ot 403.90 HYPTNSV CHR KID DIS, UNSPEC, W CHR KD ST 08/15/2017 JAVAD BARFIELD N Ot 414.00 CORON ATHEROSCLER NOS TYPE VESSEL, NATIV 08/15/2017 JAVAD BARFIELD N Ot 585.3 CHRONIC KIDNEY DISEASE, STAGE III (MODER 08/15/2017 JAVAD BARFIELD N Ot V43.3 HEART VALVE REPLAC NEC 08/15/2017 JAVAD BARFIELD N Ot V58.61 ANTICOAGULANTS,LT,CURRENT USE 08/15/2017 JAVAD BARFIELD Ot V58.69 OTH MED,LT,CURRENT USE 08/15/2017 PARRISHARNOLDO Kyle S PROCESS COACH Ot 272.4 HYPERLIPIDEMIA NEC/NOS 08/15/2017 PARRISH, HILAH S PROCESS COACH Ot 280.9 IRON DEFIC ANEMIA NOS 08/15/2017 MANAS PARRISHAH S PROCESS COACH Ot 281.1 B12 DEFIC ANEMIA NEC 08/15/2017 MANAS PARRISHAH S PROCESS COACH Ot 285.21 ANEMIA IN CHRONIC KIDNEY DISEASE 08/15/2017 SHIVANI HILJULISA S PROCESS COACH Ot 403.90 HYPTNSV CHR KID DIS, UNSPEC, W CHR KD ST 08/15/2017 ARNOLDO PARRISH S PROCESS COACH Ot 414.00 CORON ATHEROSCLER NOS TYPE VESSEL, NATIV 08/15/2017 ARNOLDO PARRISH S PROCESS COACH Ot 585.3 CHRONIC KIDNEY DISEASE, STAGE III (MODER 08/15/2017 ARNOLDO PARRISH S PROCESS COACH Ot V43.3 HEART VALVE REPLAC NEC 08/15/2017 ARNOLDO PARRISH S PROCESS COACH Ot V58.61 ANTICOAGULANTS,LT,CURRENT USE 08/15/2017 ARNOLDO PARRISH S PROCESS COACH Ot V58.69 OTH MED,LT,CURRENT USE 08/15/2017 FÁTIMA MATHEWS Ot 272.4 HYPERLIPIDEMIA NEC/NOS 08/15/2017 FÁTIMA MATHEWS Ot 401.9 HYPERTENSION NOS 08/15/2017 FÁTIMA MATHEWS Ot 414.00 CORON ATHEROSCLER NOS TYPE VESSEL, NATIV 08/15/2017 FÁTIMA MATHEWS Ot 428.0 CONGESTIVE HEART FAILURE NOS 08/15/2017 FÁTIMA MATHEWS K Ot 272.4 HYPERLIPIDEMIA NEC/NOS 08/15/2017 FÁTIMA MATHEWS K Ot 401.9 HYPERTENSION NOS 08/15/2017 FÁTIMA MATHEWS Ot 414.00 CORON ATHEROSCLER NOS TYPE VESSEL, NATIV 08/15/2017 FÁTIMA MATHEWS K Ot 428.0 CONGESTIVE HEART FAILURE NOS 08/15/2017 JAVAD BARFIELD Ot 272.4 HYPERLIPIDEMIA NEC/NOS 08/15/2017 JAVAD BARFIELD Ot 280.9 IRON DEFIC ANEMIA NOS 08/15/2017 LICO JAVAD N Ot 281.1 B12 DEFIC ANEMIA NEC 08/15/2017 LICO RAKELJOSEPH N Ot 285.21 ANEMIA IN CHRONIC KIDNEY DISEASE 08/15/2017 LICO RAKELJOSEPH N Ot 403.90 HYPTNSV CHR KID DIS, UNSPEC, W CHR KD ST 08/15/2017 JAVAD BARFIELD N Ot 414.00 CORON ATHEROSCLER NOS TYPE VESSEL, NATIV 08/15/2017 LICO JAVAD N Ot 585.3 CHRONIC KIDNEY DISEASE, STAGE III (MODER 08/15/2017 LICO JAVAD N Ot V43.3 HEART VALVE REPLAC NEC 08/15/2017 JAVAD BARFIELD N Ot V58.61 ANTICOAGULANTS,LT,CURRENT USE 08/15/2017 LICO JAVAD N Ot V58.69 OTH MED,LT,CURRENT USE 08/15/2017 ARNOLDO PARRISH PROCESS COACH Ot 280.9 IRON DEFIC ANEMIA NOS 08/15/2017 ARNOLDO PARRISH PROCESS COACH Ot 281.1 B12 DEFIC ANEMIA NEC 08/15/2017 ARNOLDO PARRISH PROCESS COACH Ot 533.90 PEPTIC ULCER NOS 08/15/2017 ARNOLDO PARRISH PROCESS COACH Ot V43.3 HEART VALVE REPLAC NEC 08/15/2017 ARNOLDO PARRISHP Ot V58.61 ANTICOAGULANTS,LT,CURRENT USE 08/15/2017 ARNOLDO PARRISH Ot V58.69 OTH MED,LT,CURRENT USE 08/15/2017 ARNOLDO PARRISHP Ot D50.9 IRON DEFICIENCY ANEMIA, UNSPECIFIED 08/15/2017 ARNOLDO PARRISH PROCESS COACH Ot D51.8 OTHER VITAMIN B12 DEFICIENCY ANEMIAS 08/15/2017 ARNOLDO PARRISH PROCESS COACH Ot D63.1 ANEMIA IN CHRONIC KIDNEY DISEASE 08/15/2017 ARNOLDO PARRISH PROCESS COACH Ot E78.5 HYPERLIPIDEMIA, UNSPECIFIED 08/15/2017 ARNOLDO PARRISH PROCESS COACH Ot I12.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 08/15/2017 ARNOLDO PARRISH PROCESS COACH Ot I25.10 ATHSCL HEART DISEASE OF [place] CORONARY 08/15/2017 ARNOLDO PARRISH PROCESS COACH Ot N18.3 CHRONIC KIDNEY DISEASE, STAGE 3 (MODERAT 08/15/2017 ARNOLDO PARRISH PROCESS COACH Ot Z79.01 [facility] (CURRENT) USE OF ANTICOAGULANT 08/15/2017 PARRISHARNOLDO Kyle CHARMAINE Ot Z79.899 OTHER [facility] (CURRENT) DRUG THERAPY 08/15/2017 MANAS PARRISHJULISA Kyle CHARMAINE Ot Z95.2 PRESENCE OF PROSTHETIC HEART VALVE 08/15/2017 SYED SANTO MD, Ot R19.7 DIARRHEA, UNSPECIFIED 08/15/2017 SYED SANTO MD, Ot D64.9 ANEMIA, UNSPECIFIED 08/15/2017 SYED SANTO MD, Ot Z79.01 [facility] (CURRENT) USE OF ANTICOAGULANT 09/02/2017 SYED SANTO MD, Ot D64.9 ANEMIA, UNSPECIFIED 09/02/2017 SYED SANTO MD, Ot 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 Results Test Result Range C DIFFICILE AG + TOXIN A/B. - 07/31/16 18:24 C DIFFICILE AG + TOXIN A/B. TNP NRG Complete blood count (CBC) with automated white blood cell (WBC) differential - 09/27/16 19:10 Blood leukocytes automated count (number/volume) 7.5 10*3/uL 4.3-11.0 Blood erythrocytes automated count (number/volume) 4.11 10*6/uL 4.35-5.85 Venous blood hemoglobin measurement (mass/volume) 11.2 g/dL 13.3-17.7 Blood hematocrit (volume fraction) 35 % 40-54 Automated erythrocyte mean corpuscular volume 85 [foz_us] 80-99 Automated erythrocyte mean corpuscular hemoglobin (mass per erythrocyte) 27 pg 25-34 Automated erythrocyte mean corpuscular hemoglobin concentration measurement ( mass/volume) 32 g/dL 32-36 Automated erythrocyte distribution width ratio 16.8 % 10.0-14.5 Automated blood platelet count (count/volume) 240 10*3/uL 130-400 Automated blood platelet mean volume measurement 9.9 [foz_us] 7.4-10.4 Automated blood neutrophils/100 leukocytes 66 % 42-75 Automated blood lymphocytes/100 leukocytes 24 % 12-44 Blood monocytes/100 leukocytes 8 % 0-12 Automated blood eosinophils/100 leukocytes 2 % 0-10 Automated blood basophils/100 leukocytes 0 % 0-10 Blood neutrophils automated count (number/volume) 4.9 10*3 1.8-7.8 Blood lymphocytes automated count (number/volume) 1.8 10*3 1.0-4.0 Blood monocytes automated count (number/volume) 0.6 10*3 0.0-1.0 Automated eosinophil count 0.1 10*3/uL 0.0-0.3 Automated blood basophil count (count/volume) 0.0 10*3/uL 0.0-0.1 PT panel in platelet poor plasma by coagulation assay - 09/27/16 19:10 Prothrombin time (PT) in platelet poor plasma by coagulation assay 21.8 s 12.2-14.7 INR in platelet poor plasma or blood by coagulation assay 1.9 0.8-1.4 Activated partial thromboplastin time (aPTT) in platelet poor plasma bycoagulation assay - 09/27/16 19:10 Activated partial thromboplastin time (aPTT) in platelet poor plasma bycoagulation assay 36 s 24-35 Comprehensive metabolic panel - 09/27/16 19:10 Serum or plasma sodium measurement (moles/volume) 143 mmol/L 135-145 Serum or plasma potassium measurement (moles/volume) 3.3 mmol/L 3.6-5.0 Serum or plasma chloride measurement (moles/volume) 110 mmol/L 98-107 Carbon dioxide 24 mmol/L 21-32 Serum or plasma anion gap determination (moles/volume) 9 mmol/L 5-14 Serum or plasma urea nitrogen measurement (mass/volume) 13 mg/dL 7-18 Serum or plasma creatinine measurement (mass/volume) 0.78 mg/dL 0.60-1.30 Serum or plasma urea nitrogen/creatinine mass ratio 17 NRG Serum or plasma creatinine measurement with calculation of estimated glomerular filtration rate > NRG Serum or plasma glucose measurement (mass/volume) 103 mg/dL 70-105 Serum or plasma calcium measurement (mass/volume) 8.0 mg/dL 8.5-10.1 Serum or plasma total bilirubin measurement (mass/volume) 0.7 mg/dL 0.1-1.0 Serum or plasma alkaline phosphatase measurement (enzymatic activity/volume) 65 U/L 40-136 Serum or plasma aspartate aminotransferase measurement (enzymatic activity/ volume) 17 U/L 5-34 Serum or plasma alanine aminotransferase measurement (enzymatic activity/volume ) 11 U/L 0-55 Serum or plasma protein measurement (mass/volume) 6.0 g/dL 6.4-8.2 Serum or plasma albumin measurement (mass/volume) 3.4 g/dL 3.2-4.5 PT panel in platelet poor plasma by coagulation assay - 02/24/17 16:12 Prothrombin time (PT) in platelet poor plasma by coagulation assay 23.4 s 12.2-14.7 INR in platelet poor plasma or blood by coagulation assay 2.1 0.8-1.4 Complete blood count (CBC) with automated white blood cell (WBC) differential - 02/24/17 16:17 Blood leukocytes automated count (number/volume) 7.0 10*3/uL 4.3-11.0 Blood erythrocytes automated count (number/volume) 4.56 10*6/uL 4.35-5.85 Venous blood hemoglobin measurement (mass/volume) 12.3 g/dL 13.3-17.7 Blood hematocrit (volume fraction) 39 % 40-54 Automated erythrocyte mean corpuscular volume 86 [foz_us] 80-99 Automated erythrocyte mean corpuscular hemoglobin (mass per erythrocyte) 27 pg 25-34 Automated erythrocyte mean corpuscular hemoglobin concentration measurement ( mass/volume) 31 g/dL 32-36 Automated erythrocyte distribution width ratio 16.2 % 10.0-14.5 Automated blood platelet count (count/volume) 235 10*3/uL 130-400 Automated blood platelet mean volume measurement 10.3 [foz_us] 7.4-10.4 Automated blood neutrophils/100 leukocytes 69 % 42-75 Automated blood lymphocytes/100 leukocytes 20 % 12-44 Blood monocytes/100 leukocytes 9 % 0-12 Automated blood eosinophils/100 leukocytes 1 % 0-10 Automated blood basophils/100 leukocytes 0 % 0-10 Blood neutrophils automated count (number/volume) 4.8 10*3 1.8-7.8 Blood lymphocytes automated count (number/volume) 1.4 10*3 1.0-4.0 Blood monocytes automated count (number/volume) 0.7 10*3 0.0-1.0 Automated eosinophil count 0.1 10*3/uL 0.0-0.3 Automated blood basophil count (count/volume) 0.0 10*3/uL 0.0-0.1 Comprehensive metabolic panel - 02/24/17 16:17 Serum or plasma sodium measurement (moles/volume) 141 mmol/L 135-145 Serum or plasma potassium measurement (moles/volume) 4.0 mmol/L 3.6-5.0 Serum or plasma chloride measurement (moles/volume) 109 mmol/L 98-107 Carbon dioxide 22 mmol/L 21-32 Serum or plasma anion gap determination (moles/volume) 10 mmol/L 5-14 Serum or plasma urea nitrogen measurement (mass/volume) 21 mg/dL 7-18 Serum or plasma creatinine measurement (mass/volume) 0.96 mg/dL 0.60-1.30 Serum or plasma urea nitrogen/creatinine mass ratio 22 NRG Serum or plasma creatinine measurement with calculation of estimated glomerular filtration rate > NRG Serum or plasma glucose measurement (mass/volume) 113 mg/dL 70-105 Serum or plasma calcium measurement (mass/volume) 9.0 mg/dL 8.5-10.1 Serum or plasma total bilirubin measurement (mass/volume) 0.7 mg/dL 0.1-1.0 Serum or plasma alkaline phosphatase measurement (enzymatic activity/volume) 65 U/L 40-136 Serum or plasma aspartate aminotransferase measurement (enzymatic activity/ volume) 18 U/L 5-34 Serum or plasma alanine aminotransferase measurement (enzymatic activity/volume ) 15 U/L 0-55 Serum or plasma protein measurement (mass/volume) 6.9 g/dL 6.4-8.2 Serum or plasma albumin measurement (mass/volume) 3.9 g/dL 3.2-4.5 PT panel in platelet poor plasma by coagulation assay - 06/21/17 16:40 Prothrombin time (PT) in platelet poor plasma by coagulation assay 36.1 s 12.2-14.7 INR in platelet poor plasma or blood by coagulation assay 3.7 0.8-1.4 PT panel in platelet poor plasma by coagulation assay - 08/07/17 14:00 Prothrombin time (PT) in platelet poor plasma by coagulation assay 30.7 s 12.2-14.7 INR in platelet poor plasma or blood by coagulation assay 3.0 0.8-1.4 PT panel in platelet poor plasma by coagulation assay - 09/19/17 08:40 Prothrombin time (PT) in platelet poor plasma by coagulation assay 22.3 s 12.2-14.7 INR in platelet poor plasma or blood by coagulation assay 2.0 0.8-1.4 Encounters ACCT No. Visit Date/Time Discharge Status Pt. Type Provider Facility Loc./Unit Complaint [id number] 08/07/2017 15:01:00 08/07/2017 23:59:59 CLS Outpatient SYED SANTO MD [facility] LABT [id number] 06/21/2017 15:41:00 06/21/2017 17:20:00 DIS Emergency EMIR PAYNE MD [facility] ER PT FELL AND HIT HEAD [id number] 02/24/2017 16:12:00 02/24/2017 19:46:00 DIS Emergency JANKI PIZANO APRN [facility] ER FALL [id number] 01/06/2017 00:15:00 01/06/2017 23:59:59 CLS Preadmit JAVAD BARFIELD [facility] ONC [id number] 10/07/2016 13:42:00 01/05/2017 00:01:00 DIS Outpatient JAVAD BARFIELD [facility] ONC [id number] 09/27/2016 17:02:00 09/27/2016 20:30:00 DIS Emergency ARISTIDES SUN DO [facility] ER FALL [id number] 07/31/2016 19:17:00 07/31/2016 23:59:59 CLS Outpatient SYED SANTO MD [facility] LABT DIARHEA [id number] 03/09/2016 13:46:00 05/05/2016 00:01:00 DIS Outpatient JAVAD BARFIELD [facility] ONC [id number] 02/16/2016 11:11:00 02/28/2016 13:47:00 DIS Inpatient ANI SALDAÑA MD [facility] IRF CVA [id number] 02/13/2016 15:22:00 02/16/2016 11:10:00 DIS Inpatient JORGE JAIMES MD [facility] 4TH CVA/LEFT SIDE WEAKNESS [id number] 01/12/2016 09:29:00 01/18/2016 00:01:00 DIS Outpatient JAVAD BARFIELD [facility] ONC [id number] 08/25/2015 12:51:00 09/28/2015 00:01:00 DIS Outpatient JAVAD BARFIELD [facility] ONC [id number] 07/28/2015 09:18:00 07/28/2015 23:59:59 CLS Outpatient ARNOLDO PARRISH PROCESS COACH [facility] ONC [id number] 06/03/2015 11:07:00 06/25/2015 00:01:00 DIS Outpatient JAVAD BARFIELD [facility] ONC [id number] 03/10/2015 11:01:00 03/16/2015 00:01:00 DIS Outpatient JAVAD BARFIELD [facility] ONC [id number] 02/10/2015 09:14:00 02/10/2015 23:59:59 CLS Outpatient ARNOLDO PARRISH PROCESS COACH [facility] ONC [id number] 10/21/2014 11:33:00 10/21/2014 23:59:59 CLS Outpatient JAVAD BARFIELD [facility] ONC [id number] 08/19/2014 09:39:00 08/19/2014 23:59:59 CLS Outpatient JAVAD BARFIELD [facility] ONC [id number] 07/09/2014 11:16:00 07/09/2014 23:59:59 CLS Outpatient JOYCE-BARNEY FÁTIMA HAWK K [facility] CARD CAD,CHS,HLP, HTN [id number] 07/02/2014 08:38:00 07/02/2014 23:59:59 CLS Outpatient JOYCE-BARNEY FÁTIMA HAWK K [facility] CARD CAD,CHS,HLP, HTN [id number] 02/14/2014 09:05:00 02/14/2014 23:59:59 CLS Outpatient ARNOLDO PARRISH PROCESS COACH [facility] ONC [id number] 07/30/2013 09:28:00 07/30/2013 23:59:59 CLS Outpatient JAVAD BARFIELD [facility] ONC [id number] 05/24/2013 10:26:00 05/24/2013 23:59:59 CLS Outpatient ENID ESTEVES MD [facility] CARD AVR,CAD,HYPERTENSION, HYPERLIPIDEMIA [id number] 01/29/2013 10:11:00 01/29/2013 23:59:59 CLS Outpatient LICO RAKELJOSEPH Smith [facility] ONC OV [id number] 09/19/2017 09:58:00 Document Registration [id number] 02/10/2015 09:14:00 Document Registration [id number] 02/10/2015 09:14:00 Document Registration [id number] 02/10/2015 09:14:00 Document Registration [id number] 02/10/2015 09:14:00 Document Registration [id number] 10/02/2012 10:11:00 Document Registration [id number] 06/09/2012 10:51:00 Document Registration [id number] 05/10/2012 08:07:00 Document Registration [id number] 03/16/2012 13:15:00 Document Registration [id number] 12/01/2011 12:28:00 Document Registration [id number] 08/23/2011 14:14:00 Document Registration [id number] 05/17/2011 10:27:00 Document Registration [id number] 03/22/2011 08:46:00 Document Registration [id number] 08/24/2010 11:29:00 Document Registration [id number] 08/21/2010 11:31:00 Document Registration [id number] 08/14/2010 17:38:00 Document Registration [id number] 08/06/2010 12:49:00 Document Registration [id number] 08/13/2009 12:26:00 Document Registration
--- NOTE | 2017-09-23 03:55 | ED General ---
General Chief Complaint: Fever-Adult/Adol Stated Complaint: FLU LIKE SYMPTOMS Source of Information: Patient, EMS, Shelter Records, Old Records Exam Limitations: Other (dementia) History of Present Illness Time Seen by Provider: 03:42 Initial Comments Patient presents to the ER by EMS from [facility] where he was reported to have had hypotension down to 80 mmHg systolic and tachycardia in the 110-120 range. He was also report that had a fever. This would be his third visit in the last 2 weeks to the ER. EMS reports the patient's blood pressure was 100 mmHg systolic when they got there and has not gotten any lower. Patient is afebrile. Patient's is denying any pain, shortness of breath, chest pain, nausea , cough, headache. He says that he wants to sleep and does not have any acute complaints. 3 days ago the patient was seen in the ER for a fall where he had a laceration of his ear repaired with stitches and returned home. 2 days prior to that he was seen in the ER for fall and shoulder pain. No fractures noted. The patient is still on the Bactrim for his right ear laceration. Per EMS nursing reports that the patient had flulike symptoms of cough, fever, chills. Allergies and Home Medications Allergies Coded Allergies: No Known Drug Allergies (Verified , 11/28/07) Home Medications Acetaminophen 500 Mg Tablet, 500 MG PO Q4H PRN for MILD PAIN, #100 Prescribed by: ANI SALDAÑA on 02/27/16 1506 Aspirin 81 Mg Tablet.dr, 81 MG PO DAILY, #30 Prescribed by: DREA THOMAS on 02/16/16 0908 Atorvastatin Calcium 10 Mg Tablet, 10 MG PO HS, #30 Prescribed by: DREA THOMAS on 02/16/16 0908 Cyanocobalamin (Vitamin B-12) 500 Mcg Tablet, 500 MCG PO DAILY, (Reported) Famotidine 20 Mg Tablet, 20 MG PO BID PRN for INDIGESTION, #60 Prescribed by: ANI SALDAÑA on 02/27/16 1506 Finasteride 5 Mg Tablet, 5 MG PO HS, (Reported) Hydrocodone/Acetaminophen 1 Each Tablet, 1 EACH PO Q4H PRN for PAIN-MILD TO MODERATE, #10 Prescribed by: JANKI PIZANO on 02/24/179 [place]-3 Fatty Acids/Fish Oil 1 Each Capsule, 1,200 MG PO DAILY, (Reported) Ondansetron 4 Mg Tab.rapdis, 4 MG PO Q6H PRN for NAUSEA/VOMITING, #30 Prescribed by: ANI SALDAÑA on 02/27/16 1506 Sulfamethoxazole/Trimethoprim 1 Each Tablet, 1 EACH PO BID, #14 Prescribed by: MICKY CHOUDHARY on 09/20/17 0637 Vit C/Vit E/Lutein/Min/[place]-3 1 Each Capsule, 1 CAP PO DAILY, (Reported) Constitutional: see HPI, No fever, No malaise EENTM: No ear discharge, No ear pain Respiratory: No cough, No short of breath Cardiovascular: No chest pain, No syncope Gastrointestinal: No abdominal pain, No constipation, No diarrhea, No nausea, No vomiting Genitourinary: No discharge, No dysuria Musculoskeletal: No back pain, No joint pain Skin: No pruritus, No rash Past Swprafu-Jmzxjz-Eemgpk Hx Patient Social History Alcohol Use: Denies Use Recreational Drug Use: No Smoking Status: Former Smoker Former Smoker, Quit: Jun 09, 1980 2nd Hand Smoke Exposure: No Recent Foreign Travel: No Contact w/Someone Who Travel: No Recent Hopitalizations: No Immunizations Up To Date Date of Pneumonia Vaccine: Jun 09, 2013 Seasonal Allergies Seasonal Allergies: No Surgeries History of Surgeries: Yes (X4 BYPASSES,VALVE REPLACED,HOLE IN HEART PATCHED, ANEURYSM,T&A,[id number]) Surgeries: Cardiac, CABG, Vascular Surgery Respiratory History of Respiratory Disorde: No Currently Using CPAP: No Currently Using BIPAP: No Cardiovascular History of Cardiac Disorders: Yes Cardiac Disorders: Aneurysm, Angina, Coronary Artery Disease, Endocarditis, High Cholesterol, Hypertension Neurological History of Neurological Disord: Yes Neurological Disorders: Dementia Reproductive System Hx Reproductive Disorders: No Genitourinary Genitourinary Disorders: Benign Prostatic Hyperpl Gastrointestinal History of Gastrointestinal Di: Yes Gastrointestinal Disorders: Ulcer Musculoskeletal History of Musculoskeletal Dis: Yes Musculoskeletal Disorders: Arthritis Endocrine History of Endocrine Disorders: No HEENT HEENT Disorders: Cataract Loss of Vision: Bilateral Hearing Impairment: Hard of Hearing Cancer History of Cancer: No Psychosocial History of Psychiatric Problem: No Integumentary History of Skin or Integumenta: No Blood Transfusions History of Blood Disorders: Yes (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) Adverse Reaction to a Blood Tr: No Family Medical History Significant Family History: Stroke Physical Exam-Suspected Sepsis Physical Exam Vital Signs Vital Sign - Last 12Hours 09/23/17 03:43 Temp 98.6 Pulse 110 Resp 16 B/P (MAP) 99/61 (74) Pulse Ox 94 O2 Delivery Room Air Capillary Refill : General Appearance: No Apparent Distress, Thin Eyes: Bilateral Eye Normal Inspection, Bilateral Eye PERRL, Bilateral Eye EOMI HEENT: PERRL/EOMI, TMs Normal, Pharynx Normal (oral mucosa is mildly dry), Other (right pinna with Prolene stitches and no erythema, exudate, tumor, calor) Neck: Normal Inspection, Non Tender Respiratory: Chest Non Tender, Lungs Clear, Normal Breath Sounds, No Accessory Muscle Use, No Respiratory Distress Cardiovascular: Regular Rate, Rhythm, No Edema, Normal Peripheral Pulses Gastrointestinal: Normal Bowel Sounds, Non Tender, Soft Extremity: Normal Capillary Refill, No Pedal Edema, Other (left elbow with a swollen globular non-erythematous old bursitis) Neurologic/Psychiatric: Alert, Other (oriented to person but not time or place) Skin: normal color, warm/dry, other (stage I blanchable pressure ulcer over sacrum; healing abrasion on the medial side of left patella) Lymphatic: No Adenopathy Focused Exam Evaluation Lactate Level Laboratory Tests 09/23/17 03:55: Lactic Acid Level 2.60*H Lactic Acid Level Laboratory Tests Test 09/23/17 03:55 Lactic Acid Level 2.60 MMOL/L (0.50-2.00) *H Progress/Results/Core Measures Suspected Sepsis SIRS Temperature: Pulse: Respiratory Rate: Laboratory Tests 09/23/17 03:55: White Blood Count 9.6 Blood Pressure / Mean: Laboratory Tests 09/23/17 03:55: Lactic Acid Level 2.60*H Laboratory Tests 09/23/17 03:55: Creatinine 1.72H, INR Comment 4.0H, Platelet Count 257, Total Bilirubin 0.7 Results/Orders Lab Results Laboratory Tests Test 09/23/17 03:55 09/23/17 04:02 Range/Units White Blood Count 9.6 4.3-11.0 10^3/uL Red Blood Count 4.11 L 4.35-5.85 10^6/uL Hemoglobin 11.1 L 13.3-17.7 G/DL Hematocrit 35 L 40-54 % Mean Corpuscular Volume 85 80-99 FL Mean Corpuscular Hemoglobin 27 25-34 PG Mean Corpuscular Hemoglobin Concent 32 32-36 G/DL Red Cell Distribution Width 16.3 H 10.0-14.5 % Platelet Count 257 130-400 10^3/uL Mean Platelet Volume 10.4 7.4-10.4 FL Neutrophils (%) (Auto) 86 H 42-75 % Lymphocytes (%) (Auto) 8 L 12-44 % Monocytes (%) (Auto) 6 0-12 % Eosinophils (%) (Auto) 0 0-10 % Basophils (%) (Auto) 0 0-10 % Neutrophils # (Auto) 8.3 H 1.8-7.8 X 10^3 Lymphocytes # (Auto) 0.7 L 1.0-4.0 X 10^3 Monocytes # (Auto) 0.6 0.0-1.0 X 10^3 Eosinophils # (Auto) 0.0 0.0-0.3 10^3/uL Basophils # (Auto) 0.0 0.0-0.1 10^3/uL Prothrombin Time 38.7 H 12.2-14.7 SEC INR Comment 4.0 H 0.8-1.4 Activated Partial Thromboplast Time 62 H 24-35 SEC Sodium Level 139 135-145 MMOL/L Potassium Level 4.6 3.6-5.0 MMOL/L Chloride Level 103 98-107 MMOL/L Carbon Dioxide Level 21 21-32 MMOL/L Anion Gap 15 H 5-14 MMOL/L Blood Urea Nitrogen 49 H 7-18 MG/DL Creatinine 1.72 H 0.60-1.30 MG/DL Estimat Glomerular Filtration Rate 38 BUN/Creatinine Ratio 28 Glucose Level 172 H 70-105 MG/DL Lactic Acid Level 2.60 *H 0.50-2.00 MMOL/L Calcium Level 9.0 8.5-10.1 MG/DL Total Bilirubin 0.7 0.1-1.0 MG/DL Aspartate Amino Transf (AST/SGOT) 20 5-34 U/L Alanine Aminotransferase (ALT/SGPT) 12 0-55 U/L Alkaline Phosphatase 76 40-136 U/L Total Protein 6.9 6.4-8.2 GM/DL Albumin 3.6 3.2-4.5 GM/DL Urine Color YELLOW Urine Clarity CLEAR Urine pH 7 5-9 Urine Specific Dickinson 1.010 L 1.016-1.022 Urine Protein NEGATIVE NEGATIVE Urine Glucose (UA) NEGATIVE NEGATIVE Urine Ketones NEGATIVE NEGATIVE Urine Nitrite NEGATIVE NEGATIVE Urine Bilirubin NEGATIVE NEGATIVE Urine Urobilinogen 1 NORMAL MG/DL Urine Leukocyte Esterase 1+ H NEGATIVE Urine RBC (Auto) 1+ H NEGATIVE Urine RBC 0-2 /HPF Urine WBC 0-2 /HPF Urine Squamous Epithelial Cells 10-25 H /HPF Urine Crystals NONE /LPF Urine Bacteria NEGATIVE /HPF Urine Casts NONE /LPF Urine Mucus SMALL H /LPF Urine Culture Indicated NO Micro Results Microbiology 09/23/17 Influenza Types A,B Antigen (GIOVANNA) - Final, Complete My Orders Orders - CAIO LYNN Cbc With Automated Diff (09/23/17 03:47) Comprehensive Metabolic Panel (09/23/17 03:47) Lactic Acid Analyzer (09/23/17 03:47) Blood Culture (09/23/17 03:47) Sputum Culture (09/23/17 03:47) Ua Culture If Indicated (09/23/17 03:47) Protime With Inr (09/23/17 03:47) Partial Thromboplastin Time (09/23/17 03:47) Chest 1 View, Ap/Pa Only (09/23/17 03:47) O2 (09/23/17 03:47) Saline Lock/Iv-Start (09/23/17 03:47) Vital Signs Adult Sepsis Patie Q1H (09/23/17 03:47) Remove Rings In Anticipation O (09/23/17 03:47) Lactated Ringers (Lr 1000 Ml Iv Solution (09/23/17 03:47) Influenza A And B Antigens (09/23/17 04:08) Lactated Ringers (Lr 1000 Ml Iv Solution (09/23/17 04:30) Vancomycin Injection (Vancomycin Injecti (09/23/17 04:45) Medications Given in ED Current Medications Medications Dose Ordered Sig/Sandro Route Start Time Stop Time Status Last Admin Dose Admin Lactated Ringer's 1,000 ml @ 0 mls/hr Q0M ONCE IV 09/23/17 03:47 09/23/17 03:50 DC 09/23/17 03:55 1,000 MLS/HR Lactated Ringer's 1,000 ml @ 0 mls/hr Q0M ONCE IV 09/23/17 04:30 09/23/17 04:32 DC 09/23/17 05:03 1,000 MLS/HR Vancomycin HCl 1000 mg/Sodium Chloride 250 ml @ 250 mls/hr ONCE ONCE IV 09/23/17 04:45 09/23/17 05:44 DC 09/23/17 04:53 250 MLS/HR Vital Signs/I&O Vital Sign - Last 12Hours 09/23/17 03:43 Temp 98.6 Pulse 110 Resp 16 B/P (MAP) 99/61 (74) Pulse Ox 94 O2 Delivery Room Air Capillary Refill : Progress Note #1: Time: 03:56 Progress Note Patient has had no coughing since he's been here. We cannot check a flu at this time as lab informs me they are out of flu tests. EMS tonight did not give antipyretics and did not note fever when they picked him up. He is however tachycardic and hypotensive probably due to fluid depletion. Patient is thin, contractured and calls out help me multiple times during the examination but when asked how to help him or what he needs or if he is in pain, thirsty or short of breath he denies all of these problems. Because of his hemodynamic instability we'll initiate a sepsis workup. 0410: Apparently lab found a few more flu tests. Progress Note #2: Time: 04:41 Progress Note Negative for flu. His blood pressure has improved significantly to 110/70 after only receiving 300 cc of normal saline. No source notified on urine or chest x- ray. Examination is difficult and has not revealed any other focal source to investigate. We initially chose vancomycin. His creatinine has doubled since a couple days ago. This would be consistent with hypovolemia due to dehydration causing his hypertension and probably his lactic acidosis. As noted tremulous as does not appear to be sepsis related and there is no focal source of pain per the patient or infection on labs or imaging. He does have Dr. Santo's advance practitioner's who can come out and see him either today or tomorrow in the jail. Examination consistent with a debilitated, contractured, jail resident who is unable to feed or water himself so lactic acidosis is most likely related to starvation. This patient would be a very good candidate for hospice intervention. Diagnostic Imaging Diagonstic Imaging: Xray Plain Films/CT/US/NM/MRI: chest (1v) Comments No acute cardiopulmonary process noted. Reviewed: Reviewed by Me Departure Impression Impression: Primary Impression: Hypotension Qualified Codes: I95.9 - Hypotension, unspecified Additional Impressions: Hypovolemia due to dehydration Stage I pressure ulcer Qualified Codes: L89.151 - Pressure ulcer of sacral region, stage 1 Right shoulder pain Qualified Codes: M25.511 - Pain in right shoulder Disposition: 01 HOME, SELF-CARE Condition: Stable Departure-Patient Inst. Decision time for Depature: 04:50 Referrals: SYED SANTO MD (PCP/Family) Primary Care Physician Patient Instructions: Dehydration, Adult (DC) Add. Discharge Instructions: Encourage plenty of fluids. Please arrange to have one of Dr. Santo's advance practitioners visit the patient either today or tomorrow in follow-up. If he begins to develop fevers above 102.5, chest pain, nausea vomiting or shortness of breath please return to the ER. All discharge instructions reviewed with patient and/or family. Voiced understanding. Copy Copies To 1: SYED SANTO MD, TITUS J Sep 23, 2017 03:55
[2017-09-23 04:12] LABS: BASOPHILS % (AUTO) 0 % (0-10); EOSINOPHILS % (AUTO) 0 % (0-10); HEMATOCRIT 35 % (40-54); HEMOGLOBIN 11.1 G/DL (13.3-17.7); LYMPHOCYTES # (AUTO) 0.7 X 10^3 (1.0-4.0); LYMPHOCYTES % (AUTO) 8 % (12-44); MEAN CORPUSCULAR HEMOGLOBIN 27 PG (25-34); MEAN CORPUSCULAR HGB CONC 32 G/DL (32-36); MEAN CORPUSCULAR VOLUME 85 FL (80-99); MEAN PLATELET VOLUME 10.4 FL (7.4-10.4); MONOCYTES # (AUTO) 0.6 X 10^3 (0.0-1.0); MONOCYTES % (AUTO) 6 % (0-12); NEUTROPHILS # (AUTO) 8.3 X 10^3 (1.8-7.8); NEUTROPHILS % (AUTO) 86 % (42-75); PLATELET COUNT 257 10^3/uL (130-400); RED BLOOD COUNT 4.11 10^6/uL (4.35-5.85); RED CELL DISTRIBUTION WIDTH 16.3 % (10.0-14.5); WHITE BLOOD COUNT 9.6 10^3/uL (4.3-11.0)
[2017-09-23 04:14] LABS: BILIRUBIN,URINE NEGATIVE (NEGATIVE); CLARITY,URINE CLEAR; COLOR,URINE YELLOW; GLUCOSE, URINE (UA) NEGATIVE (NEGATIVE); KETONES,URINE NEGATIVE (NEGATIVE); LEUKOCYTE ESTERASE ,URINE 1+ (NEGATIVE); NITRITE,URINE NEGATIVE (NEGATIVE); PH,URINE 7 (5-9); PROTEIN,URINE NEGATIVE (NEGATIVE); UROBILINOGEN,URINE 1 MG/DL (NORMAL)
[2017-09-23 04:22] LABS: PROTHROMBIN TIME PATIENT 38.7 SEC (12.2-14.7)
[2017-09-23 04:25] LABS: BACTERIA,URINE NEGATIVE /HPF; RBC,URINE 0-2 /HPF; WBC,URINE 0-2 /HPF
[2017-09-23 04:32] LABS: ALBUMIN 3.6 GM/DL (3.2-4.5); BILIRUBIN,TOTAL 0.7 MG/DL (0.1-1.0); CREATININE SERUM 1.72 MG/DL (0.60-1.30); POTASSIUM 4.6 MMOL/L (3.6-5.0); TOTAL PROTEIN 6.9 GM/DL (6.4-8.2)
[2017-09-23] MEDS ORDERED: VANCOMYCIN INJECTION 1,000 MG in NS (IVPB) 250 ML IV ONE (04:45)
--- NOTE | 2017-09-23 06:20 | Diagnostic Imaging Report ---
INDICATION: Fever. Portable chest 4:28 a.m. FINDINGS: There are postop changes from valve repair and CABG surgery. Heart size is mildly increased. Pulmonary vascularity is normal. Lungs are clear. IMPRESSION: Postsurgical changes in the chest. There is cardiomegaly without evidence of pulmonary venous hypertension. No acute abnormality is seen. Dictated by: Dictated on workstation # [id number]
[2017-09-23 07:01] VITALS: BP 101/65
== END 2017-09-23 07:01 | disposition home or self-care (01) ==
LOC: EDUNIT# 03:41 → ER 03:43
DX: I95.9 Hypotension, unspecified (principal); E86.0 Dehydration; E86.1 Hypovolemia; L89.151 Pressure ulcer of sacral region, stage 1; M25.511 Pain in right shoulder; I25.10 Atherosclerotic heart disease of native coronary artery without angina pectoris; E78.00 Pure hypercholesterolemia, unspecified; I10 Essential (primary) hypertension; N40.0 Benign prostatic hyperplasia without lower urinary tract symptoms; F03.90 Unspecified dementia, unspecified severity, without behavioral disturbance, psychotic disturbance, mood disturbance, and anxiety; Z79.82 Long term (current) use of aspirin; Z87.19 Personal history of other diseases of the digestive system; Z87.891 Personal history of nicotine dependence; Z95.1 Presence of aortocoronary bypass graft; Z98.84 Bariatric surgery status
CPT/HCPCS: 36415; 71010; 80053; 81000; 83605; 85025; 85610; 85730; 87040; 87804

== ENCOUNTER 2017-10-20 08:34 | Inpatient (IN) | payer MEDICARE, MEDICAID ==
[2017-10-20] VITALS (12 sets, daily range): BP systolic 84–113; BP diastolic 58–70
[~2017-10-20] VITALS: Ht 165.1 cm; Wt 55.3 kg
[2017-10-20] MEDS ORDERED: NS IV 1000 ML 1,000 ML IV ONE ×2 (08:41→14:30)
[2017-10-20 08:55] LABS: BASOPHILS % (AUTO) 0 % (0-10); EOSINOPHILS % (AUTO) 0 % (0-10); HEMATOCRIT 36 % (40-54); LYMPHOCYTES # (AUTO) 0.3 X 10^3 (1.0-4.0); LYMPHOCYTES % (AUTO) 3 % (12-44); MEAN CORPUSCULAR HEMOGLOBIN 27 PG (25-34); MEAN CORPUSCULAR HGB CONC 33 G/DL (32-36); MEAN CORPUSCULAR VOLUME 83 FL (80-99); MEAN PLATELET VOLUME 12.2 FL (7.4-10.4); MONOCYTES # (AUTO) 0.2 X 10^3 (0.0-1.0); MONOCYTES % (AUTO) 2 % (0-12); NEUTROPHILS # (AUTO) 9.7 X 10^3 (1.8-7.8); NEUTROPHILS % (AUTO) 95 % (42-75); PLATELET COUNT 152 10^3/uL (130-400); RED BLOOD COUNT 4.39 10^6/uL (4.35-5.85); RED CELL DISTRIBUTION WIDTH 17.6 % (10.0-14.5); WHITE BLOOD COUNT 10.2 10^3/uL (4.3-11.0)
[2017-10-20 09:12] LABS: PROTHROMBIN TIME PATIENT 84.1 SEC (12.2-14.7)
[2017-10-20 09:15] LABS: ALANINE AMINOTRANSFERASE 17 U/L (0-55); ALBUMIN 3.2 GM/DL (3.2-4.5); ALKALINE PHOSPHATASE 76 U/L (40-136); BILIRUBIN,TOTAL 0.9 MG/DL (0.1-1.0); BUN/CREATININE RATIO 39; CALCIUM 9.1 MG/DL (8.5-10.1); CARBON DIOXIDE 16 MMOL/L (21-32); CHLORIDE 112 MMOL/L (98-107); CREATININE SERUM 1.92 MG/DL (0.60-1.30); GFR ESTIMATED 34; GLUCOSE 197 MG/DL (70-105); POTASSIUM 4.6 MMOL/L (3.6-5.0); SODIUM 143 MMOL/L (135-145)
[2017-10-20 09:16] LABS: ANISOCYTOSIS MODERATE; BAND NEUTROPHILS 21 %; BASOPHILS % (MANUAL) 0 %; EOSINOPHILS % (MANUAL) 0 %; LYMPHOCYTES % (MANUAL) 1 %; MONOCYTES % (MANUAL) 2 %; NEUTROPHILS % (MANUAL) 75 %
--- NOTE | 2017-10-20 09:23 | Diagnostic Imaging Report ---
INDICATION: Altered mental status. TECHNIQUE: Single view chest 9:08 AM. CORRELATION STUDY: 09/23/2017 FINDINGS: Poststernotomy and cardiac valve surgery. Heart size enlarged. Mediastinum is prominent with rather prominent appearance about the aortic arch. Vasculature within normal limits. Lung apices are largely obscured by the patient's head. There does appear to be areas of likely chronic change about the lung apices. No acute superimposed infiltrate suggested. IMPRESSION: 1. Poststernotomy changes with cardiac enlargement. No evidence for failure otherwise acute findings in the chest. Dictated by: Dictated on workstation # [id number]
[2017-10-20] MEDS ORDERED: RX-OSELTAMIVIR 75 MG (TAMIFLU) BOX OF 10 PO STA (09:33)
[2017-10-20] MEDS ORDERED: RX-OSELTAMIVIR 6 MG/ML (TAMIFLU) BOT PO STA ×2 (09:52)
[2017-10-20] MEDS ORDERED: OSELTAMIVIR 6 MG/ML (TAMIFLU) 60 ML BOT PO SCH ×4 (09:55→21:00)
--- NOTE | 2017-10-20 10:42 | ED General ---
General Chief Complaint: Altered Mental Status Stated Complaint: AMS Nursing Triage Note: PT TO [facility] BY [facility] WITH CC OF ALTERED MENTAL STATUS, MORE THAN NORMAL, FEVER OF 101, AND HX OF UTI. FLUIDS RUNNING ON ARRIVAL. Nursing Sepsis Screen: Possible Severe Sepsis Risk Source of Information: Patient, EMS, Senior Care Records, Old Records History of Present Illness Date Seen by Provider: Oct 20, 2017 Time Seen by Provider: 08:35 Initial Comments This 81-year-old gentleman presents to the emergency room from the nursing intermediate with fever and altered mental status beyond his usual. It was also reported that his INR was 10 as previously tested this morning. 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 He recently finished prophylactic Tamiflu as there has been widespread influenza at the intermediate and in the community. Patient was initially hypotensive with the styloid pressures in the 80s per EMS. He was also noted to have some dry blood in the mouth but no active bleeding. Allergies and Home Medications Allergies Coded Allergies: No Known Drug Allergies (Verified , 11/28/07) Home Medications Acetaminophen 500 Mg Tablet, 500 MG PO Q4H PRN for MILD PAIN, #100 Prescribed by: ANI SALDAÑA on 02/27/16 1506 Aspirin 81 Mg Tablet.dr, 81 MG PO DAILY, #30 Prescribed by: DREA THOMAS on 02/16/16 0908 Atorvastatin Calcium 10 Mg Tablet, 10 MG PO HS, #30 Prescribed by: DREA THOMAS on 02/16/16 0908 Cyanocobalamin (Vitamin B-12) 500 Mcg Tablet, 500 MCG PO DAILY, (Reported) Famotidine 20 Mg Tablet, 20 MG PO BID PRN for INDIGESTION, #60 Prescribed by: ANI SALDAÑA on 02/27/16 1506 Finasteride 5 Mg Tablet, 5 MG PO HS, (Reported) Hydrocodone/Acetaminophen 1 Each Tablet, 1 EACH PO Q4H PRN for PAIN-MILD TO MODERATE, #10 Prescribed by: JANKI PIZANO on 02/24/179 Marion-3 Fatty Acids/Fish Oil 1 Each Capsule, 1,200 MG PO DAILY, (Reported) Ondansetron 4 Mg Tab.rapdis, 4 MG PO Q6H PRN for NAUSEA/VOMITING, #30 Prescribed by: ANI SALDAÑA on 02/27/16 1506 Sulfamethoxazole/Trimethoprim 1 Each Tablet, 1 EACH PO BID, #14 Prescribed by: MICKY CHOUDHARY on 09/20/17 0637 Vit C/Vit E/Lutein/Min/Marion-3 1 Each Capsule, 1 CAP PO DAILY, (Reported) Constitutional: see HPI EENTM: see HPI Respiratory: no symptoms reported Cardiovascular: see HPI Gastrointestinal: no symptoms reported Genitourinary: no symptoms reported Musculoskeletal: no symptoms reported Skin: no symptoms reported Psychiatric/Neurological: See HPI Hematologic/Lymphatic: See HPI Immunological/Allergic: no symptoms reported Past Nuwjmeq-Oxwmzv-Ajlzqp Hx Patient Social History Alcohol Use: Denies Use Recreational Drug Use: No Smoking Status: Former Smoker Former Smoker, Quit: Jun 09, 1980 2nd Hand Smoke Exposure: No Recent Foreign Travel: No Contact w/Someone Who Travel: No Recent Infectious Disease Expo: No Recent Hopitalizations: No Immunizations Up To Date Date of Pneumonia Vaccine: Jun 09, 2013 Seasonal Allergies Seasonal Allergies: No Surgeries History of Surgeries: Yes (X4 BYPASSES,VALVE REPLACED,HOLE IN HEART PATCHED, ANEURYSM,T&A,[id number]) Surgeries: Cardiac, CABG, Vascular Surgery Respiratory History of Respiratory Disorde: No Currently Using CPAP: No Currently Using BIPAP: No Cardiovascular History of Cardiac Disorders: Yes Cardiac Disorders: Aneurysm, Angina, Coronary Artery Disease, Endocarditis, High Cholesterol, Hypertension Neurological History of Neurological Disord: Yes Neurological Disorders: Dementia Reproductive System Hx Reproductive Disorders: No Genitourinary History of Genitourinary Disor: Yes Genitourinary Disorders: Benign Prostatic Hyperpl Gastrointestinal History of Gastrointestinal Di: Yes Gastrointestinal Disorders: Ulcer Musculoskeletal History of Musculoskeletal Dis: Yes Musculoskeletal Disorders: Arthritis Endocrine History of Endocrine Disorders: No HEENT History of HEENT Disorders: Yes HEENT Disorders: Cataract Loss of Vision: Bilateral Hearing Impairment: Hard of Hearing Cancer History of Cancer: No Psychosocial History of Psychiatric Problem: Yes (Dementia with behavioral disturbances) Integumentary History of Skin or Integumenta: No Blood Transfusions History of Blood Disorders: Yes (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) Adverse Reaction to a Blood Tr: No Family Medical History Significant Family History: Stroke Physical Exam-Suspected Sepsis Physical Exam Vital Signs Vital Sign - Last 12Hours 10/20/17 08:45 Temp 99.1 Pulse 124 Resp 26 B/P (MAP) 89/56 (67) Pulse Ox 96 O2 Delivery Room Air Capillary Refill : Less Than 3 Seconds Blood Pressure Mean: 67 General Appearance: WD/WN, Mild Distress HEENT: PERRL/EOMI, Normal ENT Inspection, Other (old blood in the oropharynx with no active bleeding noted) Neck: Normal Inspection Respiratory: Lungs Clear, Normal Breath Sounds, No Accessory Muscle Use, No Respiratory Distress Cardiovascular: Regular Rate, Rhythm, No Edema, No Murmur (prominent heart sounds with no murmur) Gastrointestinal: Normal Bowel Sounds, Non Tender, Soft, Other (abdominal surgical scars) Extremity: Normal Capillary Refill, Normal Inspection, No Pedal Edema Neurologic/Psychiatric: Alert, No Motor/Sensory Deficits, Other (patient is alert. He is oriented to place but is disoriented to month. He stated present month is October instead of September. His mental status is slightly altered from what I noted to be his baseline. He moves all extremities. Patient frequently hollers "help me" which is his baseline demeanor per my experience.) Skin: normal color, warm/dry Focused Exam Evaluation Lactate Level Laboratory Tests 10/20/17 08:45: Lactic Acid Level 3.25*H 10/20/17 11:08: Lactic Acid Level 3.17*H Lactic Acid Level Laboratory Tests Test 10/20/17 08:45 10/20/17 11:08 Lactic Acid Level 3.25 MMOL/L (0.50-2.00) *H 3.17 MMOL/L (0.50-2.00) *H Progress/Results/Core Measures Suspected Sepsis Recent Fever Within 48 Hours: Yes Infection Criteria Present: Documented Infection New/Unexplained Altered Menta: Yes Sepsis Screen: Possible Severe Sepsis Risk Sepsis Diagnosis: SIRS Temperature:99.1 Pulse: 124 Respiratory Rate: 26 Laboratory Tests 10/20/17 08:45: White Blood Count 10.2 Blood Pressure 89 /56 Mean: 67 Laboratory Tests 10/20/17 08:45: Lactic Acid Level 3.25*H 10/20/17 11:08: Lactic Acid Level 3.17*H Laboratory Tests 10/20/17 08:45: Creatinine 1.92H, INR Comment 11.0*H, Platelet Count 152, Total Bilirubin 0.9 Results/Orders Lab Results Laboratory Tests Test 10/20/17 08:45 10/20/17 11:08 Range/Units White Blood Count 10.2 4.3-11.0 10^3/uL Red Blood Count 4.39 4.35-5.85 10^6/uL Hemoglobin 12.0 L 13.3-17.7 G/DL Hematocrit 36 L 40-54 % Mean Corpuscular Volume 83 80-99 FL Mean Corpuscular Hemoglobin 27 25-34 PG Mean Corpuscular Hemoglobin Concent 33 32-36 G/DL Red Cell Distribution Width 17.6 H 10.0-14.5 % Platelet Count 152 130-400 10^3/uL Mean Platelet Volume 12.2 H 7.4-10.4 FL Neutrophils (%) (Auto) 95 H 42-75 % Lymphocytes (%) (Auto) 3 L 12-44 % Monocytes (%) (Auto) 2 0-12 % Eosinophils (%) (Auto) 0 0-10 % Basophils (%) (Auto) 0 0-10 % Neutrophils # (Auto) 9.7 H 1.8-7.8 X 10^3 Lymphocytes # (Auto) 0.3 L 1.0-4.0 X 10^3 Monocytes # (Auto) 0.2 0.0-1.0 X 10^3 Eosinophils # (Auto) 0.0 0.0-0.3 10^3/uL Basophils # (Auto) 0.0 0.0-0.1 10^3/uL Neutrophils % (Manual) 75 % Lymphocytes % (Manual) 1 % Monocytes % (Manual) 2 % Eosinophils % (Manual) 0 % Basophils % (Manual) 0 % Band Neutrophils 21 % Anisocytosis MODERATE Prothrombin Time 84.1 *H 12.2-14.7 SEC INR Comment 11.0 *H 0.8-1.4 Activated Partial Thromboplast Time 109 H 24-35 SEC Sodium Level 143 135-145 MMOL/L Potassium Level 4.6 3.6-5.0 MMOL/L Chloride Level 112 H 98-107 MMOL/L Carbon Dioxide Level 16 L 21-32 MMOL/L Anion Gap 15 H 5-14 MMOL/L Blood Urea Nitrogen 75 H 7-18 MG/DL Creatinine 1.92 H 0.60-1.30 MG/DL Estimat Glomerular Filtration Rate 34 BUN/Creatinine Ratio 39 Glucose Level 197 H 70-105 MG/DL Lactic Acid Level 3.25 *H 3.17 *H 0.50-2.00 MMOL/L Calcium Level 9.1 8.5-10.1 MG/DL Total Bilirubin 0.9 0.1-1.0 MG/DL Aspartate Amino Transf (AST/SGOT) 23 5-34 U/L Alanine Aminotransferase (ALT/SGPT) 17 0-55 U/L Alkaline Phosphatase 76 40-136 U/L Total Protein 7.0 6.4-8.2 GM/DL Albumin 3.2 3.2-4.5 GM/DL Micro Results Microbiology 10/20/17 Influenza Types A,B Antigen (GIOVANNA) - Final, Complete My Orders Orders - MICKY LEE MD Cbc With Automated Diff (10/20/17 08:41) Comprehensive Metabolic Panel (10/20/17 08:41) Lactic Acid Analyzer (10/20/17 08:41) Blood Culture (10/20/17 08:41) Sputum Culture (10/20/17 08:41) Ua Culture If Indicated (10/20/17 08:41) Protime With Inr (10/20/17 08:41) Partial Thromboplastin Time (10/20/17 08:41) Chest 1 View, Ap/Pa Only (10/20/17 08:41) O2 (10/20/17 08:41) Saline Lock/Iv-Start (10/20/17 08:41) Saline Lock/Iv-Start (10/20/17 08:41) Vital Signs Adult Sepsis Patie Q1H (10/20/17 08:41) Remove Rings In Anticipation O (10/20/17 08:41) Influenza A And B Antigens (10/20/17 08:41) Ns Iv 1000 Ml (Sodium Chloride 0.9%) (10/20/17 08:41) Manual Differential (10/20/17 08:45) Rx-Oseltamivir Caps (Rx-Tamiflu Caps) (10/20/17 09:33) Rx-Oseltamivir Suspension (Rx-Tamiflu Asher (10/20/17 09:52) Rx-Oseltamivir Suspension (Rx-Tamiflu Asher (10/20/17 09:52) Oseltamivir Oral Suspension (Tamiflu Ora (10/20/17 09:55) Oseltamivir Oral Suspension (Tamiflu Ora (10/20/17 21:00) Phytonadione Oral Solution (Mephyton Ora (10/20/17 10:45) Ct Head Wo (10/20/17 11:06) Medications Given in ED Current Medications Medications Dose Ordered Sig/Sandro Route Start Time Stop Time Status Last Admin Dose Admin Sodium Chloride 1,000 ml @ 0 mls/hr Q0M ONCE IV 10/20/17 08:41 10/20/17 08:45 DC 10/20/17 09:37 1,000 MLS/HR Vital Signs/I&O Vital Sign - Last 12Hours 10/20/17 08:45 Temp 99.1 Pulse 124 Resp 26 B/P (MAP) 89/56 (67) Pulse Ox 96 O2 Delivery Room Air Capillary Refill : Less Than 3 Seconds Blood Pressure Mean: 67 Progress Note #1: Time: 10:30 Progress Note Patient received 2 L of IV normal saline in the emergency room. Patient's hypotension resolved with IV fluids. There was some blood noted in his mouth but no active bleeding at the time of assessment. Patient tested positive for influenza B. No other source of fever was identified. UA was pending at the time of admission. A urine bag was placed because it was not felt safe to insert a urinary catheter with his INR at 11. Admission was discussed with Dr. Perez. She would like the patient to receive vitamin K in the ER. Patient did receive oral vitamin K, 5 mg as well as Tamiflu suspension. Patient was not able to swallow the Tamiflu capsule. Progress Note #2: Time: 11:[address] Perez requested a CT of the head due to altered mental status and supratherapeutic INR. CT showed stable chronic findings but no acute bleed. Diagnostic Imaging Diagonstic Imaging: Xray Plain Films/CT/US/NM/MRI: chest Comments Chest x-ray viewed by me and report reviewed. See report below: NAME: IKE TORRES MED REC#: [id number] PT STATUS: REG ER : 1935 PHYSICIAN: MICKY LEE MD ADMIT DATE: 10/20/17/ER Draft Date of Exam:10/20/17 CHEST 1 VIEW, AP/PA ONLY INDICATION: Altered mental status. TECHNIQUE: Single view chest 9:08 AM. CORRELATION STUDY: 09/23/2017 FINDINGS: Poststernotomy and cardiac valve surgery. Heart size enlarged. Mediastinum is prominent with rather prominent appearance about the aortic arch. Vasculature within normal limits. Lung apices are largely obscured by the patient's head. There does appear to be areas of likely chronic change about the lung apices. No acute superimposed infiltrate suggested. IMPRESSION: 1. Poststernotomy changes with cardiac enlargement. No evidence for failure otherwise acute findings in the chest. Dictated on workstation # [id number] Dict: 10/20/17917 Trans: 10/20/17 09 [id number] Interpreted by: ESTRADA PARDO DO Diagonstic Imaging: CT Plain Films/CT/US/NM/MRI: head Comments CT head viewed by me and report reviewed. See report below: NAME: IKE TORRES [facility] REC#: [id number] PT STATUS: ADM IN : 1935 PHYSICIAN: MICKY LEE MD ADMIT DATE: 10/20/17/ICU Draft Date of Exam:10/20/17 CT HEAD WO PROCEDURE: CT head without contrast. TECHNIQUE: Multiple contiguous axial images were obtained through the brain without the use of intravenous contrast. INDICATION: Altered mental status. COMPARISON: Comparison is made with prior head CT from 09/18/2017. FINDINGS: Ventricles and sulci are prominent. There is a large region of encephalomalacia in the right middle cerebral artery territory consistent with prior infarct. There are areas of encephalomalacia of the right posterior parietal-occipital lobe and left occipital lobe consistent with prior infarcts. Significant periventricular hypodensity is seen consistent with senescent change. There is a large calcified mass in the right frontal lobe consistent with known calcified meningioma. No sulcal effacement or midline shift is seen. No acute intra-axial or extra-axial hemorrhage is detected. There is a mucus retention cyst or polyp left maxillary sinus. IMPRESSION: Stable noncontrast head CT when compared with exam from 09/18/2017. Chronic changes are noted. No acute intracranial hemorrhage is detected. Dictated on workstation # [id number] Dict: 10/20/17 1137 Trans: 10/20/17 1145 [facility] [id number] Interpreted by: JOSE COREY MD Departure Communication (Admissions) Time/Spoke to Admitting Phy: 10:25 Impression Impression: Primary Impression: Influenza B Additional Impressions: Supratherapeutic INR Renal insufficiency Disposition: ADMITTED INPATIENT Condition: Improved Admissions Decision to Admit Reason: Admit from ER (General) Decision to Admit/Date: Oct 20, 2017 Time/Decision to Admit Time: 09:00 Departure-Patient Inst. Referrals: SYED SANTO MD (PCP/Family) Primary Care Physician MICKY LEE MD Oct 20, 2017 10:42
[2017-10-20] MEDS ORDERED: VITAMIN K 1 MG/ML ORAL SOLN 1 ML SYRINGE PO ONE (10:45)
--- NOTE | 2017-10-20 11:01 | History & Physical-Hospitalist ---
HPI History of Present Illness: HPI/Chief Complaint Pt is an 81yoCM with a PMH of CAD s/p CABG and mechanical valve replacement who presented to the ER due to fever and AMS. His symptoms started yesterday with a fever of 102. The staff at the nursing noticed he was more sleepy than normal and had persistent fever. He was also found to have a supratherapeutic INR (>10 per their labs) after Coumadin had been held for two days. He is unable to verbal any complaints and when asked if he felt well he responds "yes." He is unable to provide any history to me. Source: patient, RN/MD Date Seen 10/20/17 Time Seen by Provider: 10:45 Attending Physician Sharmaine Perez MD PCP Brennan Beth MD Referring Physician Date of Admission Oct 20, 2017 at 10:35 Home Medications & Allergies Home Medications Reviewed patient Home Medication Reconciliation Form Allergies Allergies Coded Allergies No Known Drug Allergies (Verified11/28/07) Past Qyybozp-Gqflfk-Jzahin Hx Patient Social History Employed/Student: unemployed Alcohol Use: Denies Use Recreational Drug Use: No Smoking Status: Former Smoker Former Smoker, Quit: Jun 09, 1980 2nd Hand Smoke Exposure: No Recent Foreign Travel: No Contact w/other who traveled: No Recent Hopitalizations: No Recent Infectious Disease Expo: No Immunizations Up To Date Date of Pneumonia Vaccine: Jun 09, 2013 Seasonal Allergies Seasonal Allergies: No Surgeries Yes (X4 BYPASSES,VALVE REPLACED,HOLE IN HEART PATCHED,ANEURYSM,T&A,[id number]) Cardiac, CABG, Vascular Surgery Respiratory No Currently Using CPAP: No Currently Using BIPAP: No Cardiovascular Yes Aneurysm, Angina, Coronary Artery Disease, Endocarditis, High Cholesterol, Hypertension Neurological Yes Dementia Reproductive System Hx Reproductive Disorders: No Genitourinary Yes Benign Prostatic Hyperpl Gastrointestinal Yes Ulcer Musculoskeletal Yes Arthritis Endocrine History of Endocrine Disorders: No HEENT History of HEENT Disorders: Yes HEENT Disorders: Cataract Loss of Vision: Bilateral Hearing Impairment: Hard of Hearing Cancer No Psychosocial History of Psychiatric Problem: Yes (Dementia with behavioral disturbances) Integumentary History of Skin or Integumenta: No Blood Transfusions History of Blood Disorders: Yes (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) Adverse Reaction to a Blood Tr: No Family Medical History Significant Family History: Stroke Review of Systems ROS-Unable to Obtain: Dementia, answer very few questions Constitutional: see HPI Physical Exam Physical Exam Vital Signs Vital Sign - Last 12Hours 10/20/17 08:45 Temp 99.1 Pulse 124 Resp 26 B/P (MAP) 89/56 (67) Pulse Ox 96 O2 Delivery Room Air Capillary Refill : Less Than 3 Seconds General Appearance: Chronically ill, Mild Distress, Thin HEENT: No Scleral Icterus (L), No Scleral Icterus (R), Other (dry mucus membranes) Neck: Non Tender, Supple Respiratory: Lungs Clear, No Accessory Muscle Use, No Respiratory Distress Cardiovascular: Systolic Murmur, Tachycardia Gastrointestinal: Normal Bowel Sounds, Non Tender, Soft, Distended, Other ( large surgical scar) Extremity: Normal Capillary Refill, Non Tender, No Pedal Edema Neurologic/Psychiatric: Alert, Motor Weakness, Other (oriented to person only) Skin: Warm/Dry, Tattoos/Piercings Results Results/Procedures Lab Laboratory Tests 10/20/17 08:45 Assessment/Plan Admission Diagnosis Severe Sepsis Diagnosis/Problems Diagnosis/Problems (1) Severe sepsis Status: Acute Assessment & Plan: UA from cathed specimen yesterday at [facility] reveals UTI Tachycardiac, Febrile, and tachypnea with [place] and lactic acidosis Also Flu positive Blood cultures obtained in ER Urine at [facility], attempt to get culture Start Rocephin Continue Tamiflu (2) UTI (urinary tract infection) Assessment & Plan: Await culture if able to get (3) Decreased level of consciousness Assessment & Plan: CT Head obtained- no acute changes or bleeds Likely due to sepsis (4) Supratherapeutic INR Status: Acute Assessment & Plan: INR >11 Vitamin K given only as no signs of active bleeding Fall Precautions Check INR in AM (5) CAD (coronary artery disease) Assessment & Plan: s/p CABG Cardiology consulted (6) Influenza B Status: Acute Assessment & Plan: Continue Tamiflu (7) Renal insufficiency Status: Acute Assessment & Plan: Continue IVF Monitor I/Os (8) Mechanical heart valve present Assessment & Plan: INR supratherapeutic Vit K as above Cardiology consulted, appreciate recs (9) Counseling regarding end of life decision making Assessment & Plan: Attempted to call daughter about very poor assisted prognosis who did not answer Discussed with PCP Bernardino Reyes about potential hospice Will continue this discussion if mentation improves enough to have or if daughter returns my call Palliative Care consulted, appreciate assistance SHARMAINE PEREZ MD Oct 20, 2017 11:01
[2017-10-20] MEDS: cefTRIAXone INJECTION 1,000 MG in D5W 50 ML IVPB SOLUTION 50 ML IV SCH (11:18)
[2017-10-20] MEDS ORDERED: CATHETER FLUSH 10 ML SYR IV PRN (11:30)
--- NOTE | 2017-10-20 11:46 | Diagnostic Imaging Report ---
PROCEDURE: CT head without contrast. TECHNIQUE: Multiple contiguous axial images were obtained through the brain without the use of intravenous contrast. INDICATION: Altered mental status. COMPARISON: Comparison is made with prior head CT from 09/18/2017. FINDINGS: Ventricles and sulci are prominent. There is a large region of encephalomalacia in the right middle cerebral artery territory consistent with prior infarct. There are areas of encephalomalacia of the right posterior parietal-occipital lobe and left occipital lobe consistent with prior infarcts. Significant periventricular hypodensity is seen consistent with senescent change. There is a large calcified mass in the right frontal lobe consistent with known calcified meningioma. No sulcal effacement or midline shift is seen. No acute intra-axial or extra-axial hemorrhage is detected. There is a mucus retention cyst or polyp left maxillary sinus. IMPRESSION: Stable noncontrast head CT when compared with exam from 09/18/2017. Chronic changes are noted. No acute intracranial hemorrhage is detected. Dictated by: Dictated on workstation # [id number]
[2017-10-20] MEDS ORDERED: ONDANSETRON 4 MG/2 ML (SDV) Z0FRAN IV PRN (12:00)
[2017-10-20] MEDS ORDERED: ACET-2267 PO (13:37)
[2017-10-20] MEDS ORDERED: ATOR20TA49 PO (13:37)
[2017-10-20] MEDS ORDERED: CALC600T12 PO (13:37)
[2017-10-20] MEDS ORDERED: BISA10SU58 RC (13:37)
[2017-10-20] MEDS ORDERED: MELA3TAB PO (13:37)
[2017-10-20] MEDS ORDERED: LORA-404 PO (13:37)
[2017-10-20] MEDS ORDERED: FINA5TAB6 PO (13:37)
[2017-10-20] MEDS ORDERED: MAGN400T39 PO (13:37)
[2017-10-20] MEDS ORDERED: C,E,1CAP PO (13:37)
[2017-10-20] MEDS ORDERED: ATOR10TA PO (13:37)
[2017-10-20] MEDS ORDERED: FAMO-119 PO (13:37)
[2017-10-20] MEDS ORDERED: MAGN400O7 PO (13:37)
[2017-10-20] MEDS ORDERED: POTA20TA15 PO (13:38)
[2017-10-20] MEDS ORDERED: SENN-1 PO (13:38)
[2017-10-20] MEDS ORDERED: TRAM50TA2 PO (13:38)
[2017-10-20] MEDS ORDERED: MULT-1042 PO (13:45)
[2017-10-20 14:35] LABS: BILIRUBIN,URINE NEGATIVE (NEGATIVE); CLARITY,URINE CLEAR; COLOR,URINE YELLOW; GLUCOSE, URINE (UA) NEGATIVE (NEGATIVE); KETONES,URINE NEGATIVE (NEGATIVE); LEUKOCYTE ESTERASE ,URINE 2+ (NEGATIVE); NITRITE,URINE POSITIVE (NEGATIVE); PH,URINE 5 (5-9); PROTEIN,URINE 3+ (NEGATIVE); UROBILINOGEN,URINE NORMAL (NORMAL)
[2017-10-20 14:48] LABS: BACTERIA,URINE NEGATIVE /HPF; RENAL EPITHELIAL CELLS,URINE 0-2 /HPF; SQUAMOUS EPITHELIAL CELL,UR RARE /HPF
[2017-10-20] MEDS ORDERED: MILK OF MAGNESIA 400 MG/5 ML 30 ML UDC PO PRN (15:00)
[2017-10-20] MEDS ORDERED: ANTACID SUSP 30 ML UDC (MYLANTA) PO PRN (15:00)
[2017-10-20] MEDS ORDERED: APAP 325 MG/10.15 ML LIQ (TYLENOL) UDC PO PRN (15:00)
[2017-10-20] MEDS: NS IV 1000 ML 1,000 ML IV SCH ×3 (15:37→23:23)
--- NOTE | 2017-10-20 16:13 | Consultation-Cardiology ---
HPI-Cardiology Cardiology Consultation: Date of Consultation 10/20/17 Date of Admission Attending Physician Viktoriya Perez MD Admitting Physician Brennan Beth MD Consulting Physician Bernadine CORBIN MD HPI: Time Seen by Provider: 16:56 Chief Complaint: Shortness of breath This is a 81-year-old gentleman who has complicated past medical history and a complicated past cardiac history. He has baseline dementia therefore history is limited. Most of the history is taken from his ambulatory records and past records here in the hospital. The patient has been admitted for treatment of sepsis associated with influenza with acidosis and acute kidney injury. He was also found to have supratherapeutic INR on Coumadin. His cardiac history includes coronary artery disease and CABG. An aortic valve replacement on Coumadin. He had a stress test in June 2014 which was low risk. An echocardiogram done in June 2014 showed an EF of 40 percent and mild to moderate aortic regurgitation. Coronary angiography in May 2012 showed patent grafts with occluded LINCOLN and severe kluti kaah disease. Review of Systems-Cardiology Review of Systems Constitutional: As described under HPI, fever Eyes: No As described under HPI, No no symptoms reported, No blindness, No blurred vision, No contact lenses, No drainage, No decreased acuity, No foreign body sensation, No glasses, No inflammation, No pain, No photophobia, No previous injury, No shadows, No tunnel vision, No other, No vision change Ears/Nose/Throat: No As described under HPI, No no symptoms reported, No chronic hearing loss, No epistaxis, No ear discharge, No ear pain, No loose teeth, No mouth pain, No mouth swelling, No nasal drainage, No nose pain, No recent hearing loss, No throat pain, No throat swelling, No ulcerations, No other Respiratory: shortness of breath Cardiovascular: No no symptoms reported, No As described under HPI, No chest pain, No edema, No irregular heart rate, No lightheadedness, No palpitations, No syncope, No other Gastrointestinal: No no symptoms reported, No As described under HPI, No abdomen distended, No abdominal pain, No blood streaked bowels, No constipation , No diarrhea, No difficulty swallowing, No nausea, No poor appetite, No poor fluid intake, No rectal bleeding, No vomiting, No other, No nausea/vomiting/ diarrhea, No stool coloration changes Genitourinary: No no symptoms reported, No As described under HPI, No burning, No dysuria, No discharge, No frequency, No flank pain, No hematuria, No incontinence, No pain, No urgency, No other, No urine frequency changes, No urine coloration changes Musculoskeletal: No no symptoms reported, No As describe under HPI, No back pain, No gout, No joint pain, No joint swelling, No muscle pain, No muscle stiffness, No neck pain, No other Skin: No no symptoms reported, No As described under HPI, No change in color, No change in hair/nails, No dryness, No lesions, No lumps, No rash, No other, No skin related problems, No ulcerations, No rash on exposed areas, No ulcerations on exposed areas Psychiatric/Neurological: As described under HPI Hematologic: anemia QEZ-Muqyzi-Ihhtaw Hx Patient Social History Employed/Student: unemployed Alcohol Use: Denies Use Recreational Drug Use: No Smoking Status: Former Smoker Former smoker/When Quit: Jun 09, 1980 2nd Hand Smoke Exposure: No Recent Foreign Travel: No Recent Infectious Disease Expo: No Immunizations Up To Date Date of Pneumonia Vaccine: Jun 09, 2013 Past Medical History PMH As described under Assessment. Allergies and Home Medications Allergies Coded Allergies: No Known Drug Allergies (Verified , 11/28/07) Home Medications Acetaminophen 500 Mg Tablet, 1,000 MG PO TID, (Reported) Atorvastatin Calcium 10 Mg Tablet, 10 MG PO DAILY, (Reported) Bisacodyl 10 Mg Supp.rect, 10 MG RC DAILY PRN for CONSTIPATION-4TH LINE, ( Reported) C,E,Zinc,Copper 11/Zjeek1a/Lut 1 Each Capsule, 1 CAP PO DAILY, (Reported) Calcium Carbonate 600 Mg Tablet, 600 MG PO DAILY, (Reported) Famotidine 20 Mg Tablet, 20 MG PO HS, (Reported) Finasteride 5 Mg Tablet, 5 MG PO DAILY, (Reported) Lorazepam 0.5 Mg Tablet, 0.5 MG PO BID, (Reported) Magnesium Hydroxide 400 Mg/5 Ml Oral.susp, 30 ML PO DAILY PRN for CONSTIPATION- 7TH LINE, (Reported) Magnesium Oxide 400 Mg Tablet, 400 MG PO BID, (Reported) Melatonin 3 Mg Tablet, 3 MG PO HS PRN for INSOMNIA, (Reported) Multivit-Min/Iron Fum/Folic AC 1 Each Tablet, 1 TAB PO DAILY, (Reported) Potassium Chloride 20 Meq Tab.er.prt, 20 MEQ PO DAILY, (Reported) Sennosides/Docusate Sodium 1 Each Tablet, 1 TAB PO DAILY, (Reported) Tramadol HCl 50 Mg Tablet, 50 MG PO Q6H PRN for PAIN-MODERATE, (Reported) Physical Exam-Cardiology Physical Exam Vital Signs/I&O Vital Sign - Last 12Hours 10/20/17 10/20/17 10/20/17 10/20/17 08:45 11:20 13:00 16:40 Temp 99.1 99.1 99.1 Pulse 124 111 106 Resp 26 20 B/P (MAP) 89/56 (67) Pulse Ox 96 96 O2 Delivery Room Air Room Air Capillary Refill : Less Than 3 Seconds Constitutional: appears stated age, other (not oriented. Nonresponsive.) HEENT: No PERRL, No normal ENT inspection, No TMs normal, No pharynx normal, No scleral icterus (R), No scleral icterus (L), No pale conjunctivae (R), No pale conjunctivae (L), No photophobia, No TM abnormal (R), No TM abnormal (L), No pharyngeal erythema, No tonsillar exudate, No other, No discharge, No EOMI, No hearing is well preserved, No hard of hearing, No oral hygience is good, No ulceration, No xanthelasmas are seen Neck: No non-tender, No full range of motion, No supple, No normal inspection, No carotid bruit, No limited range of motion, No lymphadenopathy (R), No lymphadenopathy (L), No tender lateral, No tender midline, No thyromegaly, No other, No carotid pulses are 2 + bilaterally, No with good upstrokes Respiratory: lungs clear to percussion, lungs clear to auscultation Cardiovascular: irregularly irregular, S1 and S2 Gastrointestinal: No tender, No soft, No round, No distended, No pulsatile mass , No organomegaly, No guarding, No rebound, No tenderness, No hernia, No mass, No audible bowel sounds, No abnormal bowel sounds, No abdominal bruits, No spleenomegaly, No other Rectal: deferred Extremities: No normal range of motion, No non-tender, No normal inspection, No pedal edema, No calf tenderness, No normal capillary refill, No pelvis stable , No calf tenderness, No inflammation, No pedal edema, No slow capillary refill , No swelling, No other, No abrasion, No clubbing, No cyanosis, No ecchymosis, No laceration, No no lower extremity edema bilateral, No significant edema, No tenderness, No wound Neurologic/Psychiatric: no motor/sensory deficits, disoriented x 3, grossly intact Skin: normal color, warm/dry Data Review Labs Laboratory Tests 10/20/17 08:45: White Blood Count 10.2, Red Blood Count 4.39, Hemoglobin 12.0L, Hematocrit 36L, Mean Corpuscular Volume 83, Mean Corpuscular Hemoglobin 27, Mean Corpuscular Hemoglobin Concent 33, Red Cell Distribution Width 17.6H, Platelet Count 152, Mean Platelet Volume 12.2H, Neutrophils (%) (Auto) 95H, Lymphocytes (%) (Auto) 3L, Monocytes (%) (Auto) 2, Eosinophils (%) (Auto) 0, Basophils (%) (Auto) 0, Neutrophils # (Auto) 9.7H, Lymphocytes # (Auto) 0.3L, Monocytes # (Auto) 0.2, Eosinophils # (Auto) 0.0, Basophils # (Auto) 0.0, Neutrophils % (Manual) 75, Lymphocytes % (Manual) 1, Monocytes % (Manual) 2, Eosinophils % (Manual) 0, Basophils % (Manual) 0, Band Neutrophils 21, Anisocytosis MODERATE, Prothrombin Time 84.1*H, INR Comment 11.0*H, Activated Partial Thromboplast Time 109H, Sodium Level 143, Potassium Level 4.6, Chloride Level 112H, Carbon Dioxide Level 16L, Anion Gap 15H, Blood Urea Nitrogen 75H, Creatinine 1.92H, Estimat Glomerular Filtration Rate 34, BUN/Creatinine Ratio 39, Glucose Level 197H, Lactic Acid Level 3.25*H, Calcium Level 9.1, Total Bilirubin 0.9, Aspartate Amino Transf (AST/SGOT) 23, Alanine Aminotransferase (ALT/SGPT) 17, Alkaline Phosphatase 76, Total Protein 7.0, Albumin 3.2 10/20/17 11:08: Lactic Acid Level 3.17*H 10/20/17 14:20: Lactic Acid Level 4.09*H 10/20/17 14:30: Urine Color YELLOW, Urine Clarity CLEAR, Urine pH 5, Urine Specific [place] 1.015L, Urine Protein 3+H, Urine Glucose (UA) NEGATIVE, Urine Ketones NEGATIVE, Urine Nitrite POSITIVEH, Urine Bilirubin NEGATIVE, Urine Urobilinogen NORMAL, Urine Leukocyte Esterase 2+H, Urine RBC (Auto) 5+H, Urine RBC 5-10H, Urine WBC 2 -5, Urine Squamous Epithelial Cells RARE, Urine Renal Epithelial Cells 0-2, Urine Crystals NONE, Urine Bacteria NEGATIVE, Urine Casts PRESENT, Urine Coarse Granular Casts 0-2H, Urine Mucus NEGATIVE, Urine Culture Indicated YES 10/20/17 16:40: Microbiology 10/20/17 Influenza Types A,B Antigen (GIOVANNA) - Final, Complete ECG Impression ECG Comment Telemetry shows atrial fibrillation with controlled ventricular rate. A/P-Cardiology Assessment/Admission Diagnosis Sepsis, Influenza, Supratherapeutic INR, Acute kidney injury, Acidosis, Anemia, Coronary artery disease, CABG, Aortic valve replacement, New onset atrial fibrillation. Ischemic cardiomyopathy Plan Sepsis. On broad-spectrum IV antibiotics. Defer to the primary team. Influenza, on Tamiflu. Supratherapeutic INR, vitamin K given. Coumadin held. Repeat INR. No bleeding. Acute kidney injury: Likely secondary to sepsis and severe influenza. Acidosis: Likely secondary to sepsis. Anemia: Will follow. Coronary artery disease: Last nuclear stress test was in June 2014 which was low risk. Last coronary angiography was in May 2012 which showed patent grafts. LINCOLN was occluded. Severe kl[place] kaah disease. Will rule out acute coronary syndrome with serial troponin. CABG, Aortic valve replacement: Echocardiogram. Supratherapeutic INR. Hold Coumadin for now. New onset atrial fibrillation: Document with EKG. Likely secondary to acute systemic disease. Ischemic cardiomyopathy: Previous ejection fraction 40 percent likely ischemic cardiomyopathy. Repeat echocardiogram. Poor prognosis. Thank you for your consultation. Please call me if you have any questions. Berny Corbin MD, FACP, FACC, FSCAI, FHRS, CCDS Interventional Cardiology Cardiac Electrophysiology Vascular Medicine and Endovascular Interventions Bernadine CORBIN MD Oct 20, 2017 4:13 pm
[2017-10-20] MEDS ORDERED: INFLUENZA TRIvalent 2017-2018 0.5 ML/45 MCG SYR IM ONE (18:00)
[2017-10-20] MEDS ORDERED: NS IV 1000 ML 1,000 ML IV SCH (21:45)
[2017-10-21] VITALS (13 sets, daily range): BP systolic 87–112; BP diastolic 50–89
[2017-10-21 00:17] LABS: ALBUMIN 2.2 GM/DL (3.2-4.5); BUN/CREATININE RATIO 51; CALCIUM 6.9 MG/DL (8.5-10.1); CARBON DIOXIDE 14 MMOL/L (21-32); CHLORIDE 126 MMOL/L (98-107); CREATININE SERUM 0.89 MG/DL (0.60-1.30); GFR ESTIMATED > 60; GLUCOSE 99 MG/DL (70-105); MAGNESIUM 1.9 MG/DL (1.8-2.4); POTASSIUM 3.2 MMOL/L (3.6-5.0); SODIUM 150 MMOL/L (135-145)
[2017-10-21] MEDS ORDERED: SODIUM BICARB 8.4% 50 MEQ/50 ML (ABBOTT) SYR IV ONE (01:30)
[2017-10-21] MEDS: ALBUMIN 5% 12.5 GM/250 ML 250 ML IV SCH ×2 (02:01→02:48)
[2017-10-21] MEDS: DEXTROSE IV SCH ×6 (02:01→03:12)
[2017-10-21] MEDS: CALCIUM GLUCONATE IV SCH ×6 (02:01→03:12)
[2017-10-21] MEDS: POTASSIUM CL 10 MEQ/50 ML IVPB (PRE-MIX) IV SCH ×6 (04:16→13:34)
[2017-10-21 04:47] LABS: BASOPHILS % (AUTO) 0 % (0-10); EOSINOPHILS % (AUTO) 0 % (0-10); HEMATOCRIT 27 % (40-54); HEMOGLOBIN 8.6 G/DL (13.3-17.7); LYMPHOCYTES # (AUTO) 0.6 X 10^3 (1.0-4.0); LYMPHOCYTES % (AUTO) 8 % (12-44); MEAN CORPUSCULAR HEMOGLOBIN 27 PG (25-34); MEAN CORPUSCULAR HGB CONC 32 G/DL (32-36); MEAN CORPUSCULAR VOLUME 85 FL (80-99); MEAN PLATELET VOLUME 11.7 FL (7.4-10.4); MONOCYTES # (AUTO) 0.4 X 10^3 (0.0-1.0); MONOCYTES % (AUTO) 6 % (0-12); NEUTROPHILS % (AUTO) 85 % (42-75); PLATELET COUNT 89 10^3/uL (130-400); RED BLOOD COUNT 3.16 10^6/uL (4.35-5.85); RED CELL DISTRIBUTION WIDTH 17.3 % (10.0-14.5); WHITE BLOOD COUNT 7.1 10^3/uL (4.3-11.0)
[2017-10-21 05:06] LABS: ALANINE AMINOTRANSFERASE 21 U/L (0-55); ALBUMIN 2.7 GM/DL (3.2-4.5); ALKALINE PHOSPHATASE 52 U/L (40-136); BILIRUBIN,TOTAL 0.9 MG/DL (0.1-1.0); BUN/CREATININE RATIO 49; CALCIUM 9.1 MG/DL (8.5-10.1); CARBON DIOXIDE 20 MMOL/L (21-32); CHLORIDE 122 MMOL/L (98-107); CREATININE SERUM 0.96 MG/DL (0.60-1.30); GFR ESTIMATED > 60; GLUCOSE 124 MG/DL (70-105); MAGNESIUM 2.2 MG/DL (1.8-2.4); PHOSPHORUS 2.1 MG/DL (2.3-4.7); POTASSIUM 3.4 MMOL/L (3.6-5.0); SODIUM 152 MMOL/L (135-145); TOTAL PROTEIN 5.2 GM/DL (6.4-8.2)
--- NOTE | 2017-10-21 05:53 | Pulmonary Consultation ---
History of Present Illness History of Present Illness Date of Consultation 10/21/17 05:47 Time Seen by Provider: 10:08 Date of Admission History of Present Illness 81yo with hx of severe dementia, CAD and mechanical valve treated with Coumadin therapy presented secondary to fever and AMS changes. persistent fever of 102.Pt was found to have INR of 11. unable to obtain ROS secondary to dementia. I am consulted for ICU management. Allergies and Home Medications Allergies Coded Allergies: No Known Drug Allergies (Verified , 11/28/07) Home Medications Bisacodyl 10 Mg Supp.rect, 10 MG RC DAILY, #30 Prescribed by: SHAZIA KLEIN on 10/24/17 1123 Lorazepam 2 Mg/1 Ml Oral.conc, 1 MG PO every 4 hours, #30 Prescribed by: SHAZIA KLEIN on 10/24/17 1105 Morphine Sulfate 100 Mg/5 Ml Solution, 1 MG PO Q2H PRN for PAIN, #30 Prescribed by: SHAZIA KLEIN on 10/24/17 1105 [Acetaminophen] , 650 MG NJ every 4 hours, #30 Prescribed by: SHAZIA KLEIN on 10/24/17 1125 Past Nanykpw-Ufhgra-Jddqrd Hx Patient Social History Alcohol Use: Denies Use Recreational Drug Use: No Smoking Status: Former Smoker Former Smoker, Quit: Jun 09, 1980 2nd Hand Smoke Exposure: No Recent Foreign Travel: No Contact w/Someone Who Travel: No Recent Infectious Disease Expo: No Recent Hopitalizations: No Immunizations Up To Date Date of Pneumonia Vaccine: Jun 09, 2013 Seasonal Allergies Seasonal Allergies: No Surgeries History of Surgeries: Yes (X4 BYPASSES,VALVE REPLACED,HOLE IN HEART PATCHED, ANEURYSM,T&A,[id number]) Surgeries: Cardiac, CABG, Vascular Surgery Respiratory History of Respiratory Disorde: No Currently Using CPAP: No Currently Using BIPAP: No Cardiovascular History of Cardiac Disorders: Yes Cardiac Disorders: Aneurysm, Angina, Coronary Artery Disease, Endocarditis, High Cholesterol, Hypertension Neurological History of Neurological Disord: Yes Neurological Disorders: Dementia Reproductive System Hx Reproductive Disorders: No Genitourinary History of Genitourinary Disor: Yes Genitourinary Disorders: Benign Prostatic Hyperpl Gastrointestinal History of Gastrointestinal Di: Yes Gastrointestinal Disorders: Ulcer Musculoskeletal History of Musculoskeletal Dis: Yes Musculoskeletal Disorders: Arthritis Endocrine History of Endocrine Disorders: No HEENT History of HEENT Disorders: Yes HEENT Disorders: Cataract Loss of Vision: Bilateral Hearing Impairment: Hard of Hearing Cancer History of Cancer: No Psychosocial History of Psychiatric Problem: Yes (Dementia with behavioral disturbances) Integumentary History of Skin or Integumenta: No Blood Transfusions History of Blood Disorders: Yes (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, ELEVATED INR) Adverse Reaction to a Blood Tr: No Family Medical History Significant Family History: Stroke Review of Systems Time Seen by Provider: 06:16 Exam Exam Vital Signs Date Time Temp Pulse Resp B/P (MAP) Pulse Ox O2 Delivery O2 Flow Rate FiO2 10/21/17 05:00 88 14 94/89 (91) 93 Room Air 10/21/17 04:00 98.6 83 12 95/75 (82) 97 Room Air 10/21/17 04:00 96 Room Air 10/21/17 03:00 80 25 100/57 (71) 99 Room Air 10/21/17 02:00 87 26 99/64 (76) 100 Room Air 10/21/17 01:00 91 10/21/17 01:00 91 25 107/58 (74) 100 Room Air 10/21/17 00:00 98 Room Air 10/21/17 00:00 98.1 92 26 102/58 (73) 100 Room Air 10/20/17 23:00 84 19 113/70 (84) 91 Room Air 10/20/17 22:00 85 21 110/68 (82) 90 Room Air 10/20/17 21:00 90 25 93/58 (70) 100 Room Air 10/20/17 20:00 100 Room Air 10/20/17 20:00 99.2 92 13 84/66 (72) 96 Room Air 10/20/17 19:00 90 10/20/17 19:00 90 26 106/70 (82) 96 Room Air 10/20/17 18:00 98 26 96/64 (75) 94 Room Air 10/20/17 17:00 98 25 95/62 (73) 94 Room Air 10/20/17 16:40 99.1 10/20/17 16:40 99.1 10/20/17 16:00 116 93/63 (73) 93 Room Air 10/20/17 15:00 113 94/64 (74) 94 Room Air 10/20/17 14:00 115 92/65 (74) 94 Room Air 10/20/17 13:00 109 105/58 (74) 95 Room Air 10/20/17 13:00 106 10/20/17 12:00 96 97/60 (72) 94 Room Air 10/20/17 11:20 99.1 111 20 96 Room Air 10/20/17 08:45 99.1 124 26 89/56 (67) 96 Room Air I & O 10/21/17 07:00 Intake Total 5020 ml Output Total 100 ml Balance 4920 ml General Appearance: Chronically ill, Mild Distress, Thin HEENT: No Scleral Icterus (L), No Scleral Icterus (R), Other (dry mucus membranes) Neck: Non Tender, Supple Respiratory: Lungs Clear, No Accessory Muscle Use, No Respiratory Distress Cardiovascular: Systolic Murmur, Tachycardia Capillary Refill: Less Than 3 Seconds Extremity: Normal Capillary Refill, Non Tender, No Pedal Edema Neurologic/Psychiatric: Alert, Motor Weakness, Other (oriented to person only) Skin: Warm/Dry, Tattoos/Piercings Results Lab Laboratory Tests 10/20/17 08:45 10/20/17 23:50 10/21/17 04:30 Assessment/Plan Assessment/Plan Severe sepsis UTI Coumadin coagulopathy -S/p vitamin K Severe dementia Influenza B -Tamiflu Mechanical heart valve -Hold Coumadin for now Thrombocytopenia Anemia -monitor -repeat CBC with INR around 10am Possible hospice planning. 255 Clinical Quality Measures DVT/VTE Risk/Contraindication: Risk Factor Score Per Nursin RFS Level Per Nursing on Admit: 4+=Very High CARO SHEN DO Oct 21, 2017 05:52
[2017-10-21] MEDS ORDERED: POTASSIUM CHLORIDE IV SCH (06:00)
[2017-10-21] MEDS ORDERED: 1/2 NS IV SCH (06:00)
[2017-10-21] MEDS ORDERED: D5 IV SCH (06:00)
[2017-10-21 06:39] LABS: INR 1.7 (0.8-1.4); PROTHROMBIN TIME PATIENT 20.3 SEC (12.2-14.7)
--- NOTE | 2017-10-21 07:48 | Progress Note-Hospitalist ---
Subjective HPI/CC On Admission Date Seen by Provider: Oct 21, 2017 Time Seen by Provider: 07:00 Pt is an 81yoCM with a PMH of CAD s/p CABG and mechanical valve replacement who presented to the ER due to fever and AMS. His symptoms started yesterday with a fever of 102. The staff at the nursing noticed he was more sleepy than normal and had persistent fever. He was also found to have a supratherapeutic INR (>10 per their labs) after Coumadin had been held for two days. He is unable to verbal any complaints and when asked if he felt well he responds "yes." He is unable to provide any history to me. Subjective/Events-last exam Pt minimally responsive this AM. BP 87/50 while I was at bedside. 1L NS bolus ordered. Discussed with Dr Díaz who agrees with poor prognosis and initiation of comfort measures. Objective Exam Vital Signs Vital Sign - Last 12Hours 10/20/17 08:45 Temp 99.1 Pulse 124 Resp 26 B/P (MAP) 89/56 (67) Pulse Ox 96 O2 Delivery Room Air Capillary Refill : Less Than 3 Seconds General Appearance: Chronically ill, Mild Distress, Thin Respiratory: Lungs Clear, No Respiratory Distress Cardiovascular: Regular Rate, Rhythm, Systolic Murmur Gastrointestinal: Normal Bowel Sounds, Non Tender, Soft Neurologic/Psychiatric: Alert, Other (oriented to self only) Results/Procedures Lab Laboratory Tests 10/20/17 23:50 10/21/17 04:30 10/21/17 10:47 Assessment/Plan Assessment and Plan Assess & Plan/Chief Complaint Septic Shock Diagnosis/Problems Diagnosis/Problems (1) Septic shock due to Staphylococcus aureus Status: Acute Assessment & Plan: UA from cathed specimen yesterday at [facility] reveals UTI Tachycardiac, Febrile, and tachypnea with [place] and lactic acidosis Progressed to shock with refractory hypotension and lactic over 4 Also Flu B positive Blood cultures- positive in 4 tubes for staph Urine here positive for staph as well Family has elected comfort measures only so will not escalate care (2) Staphylococcus aureus bacteremia Assessment & Plan: Family has elected comfort measures only (3) UTI (urinary tract infection) Assessment & Plan: due to staph and has caused bacteremia Qualifiers: Qualified Codes: N10 - Acute pyelonephritis (4) Decreased level of consciousness Assessment & Plan: CT Head obtained- no acute changes or bleeds Likely due to sepsis (5) Supratherapeutic INR Status: Resolved Assessment & Plan: INR >11 on arrival s/p Vit K INR now 1.7 (6) CAD (coronary artery disease) Assessment & Plan: s/p CABG Cardiology consulted (7) Mechanical heart valve present Assessment & Plan: INR 1.7 now Vit K as above Cardiology consulted, appreciate recs (8) Influenza B Status: Acute Assessment & Plan: as above (9) Renal insufficiency Status: Acute Assessment & Plan: Continue IVF (10) Counseling regarding end of life decision making Assessment & Plan: Attempted to call daughter on 10/20 about very poor snf prognosis who did not answer Was able to reach this morning. Spoke with Abigail, reported DPOA, who is in agreement with hospice and comfort measures She would like to speak with his other daughter prior to official changing goals of care Discussed with PCP Bernardino Reyes about potential hospice Palliative Care consulted, appreciate assistance SHARMAINE MENENDEZ MD Oct 21, 2017 7:48 am
[2017-10-21] MEDS: NS IV 1000 ML 1,000 ML IV SCH (08:15)
[2017-10-21] MEDS ORDERED: NS IV 1000 ML 1,000 ML IV ONE (08:17)
--- NOTE | 2017-10-21 08:22 | Diagnostic Imaging Report ---
INDICATION: Sepsis and acute mental status changes. Comparison made with prior examination from 10/20/2017. FINDINGS: There is cardiomegaly. There appears to be a median sternotomy and coronary bypass graft. There is no pleural effusion or pneumothorax. Mediastinum is unremarkable. IMPRESSION: Cardiomegaly. No acute cardiopulmonary abnormality. Dictated by: Dictated on workstation # [id number]
[2017-10-21] MEDS ORDERED: OSELTAMIVIR 6 MG/ML (TAMIFLU) 60 ML BOT PO SCH (09:00)
[2017-10-21] MEDS: cefTRIAXone INJECTION 1,000 MG in D5W 50 ML IVPB SOLUTION 50 ML IV SCH (09:37)
[2017-10-21 11:01] LABS: HEMOGLOBIN 8.2 G/DL (13.3-17.7); MEAN PLATELET VOLUME 11.5 FL (7.4-10.4); RED BLOOD COUNT 3.06 10^6/uL (4.35-5.85); RED CELL DISTRIBUTION WIDTH 17.6 % (10.0-14.5); WHITE BLOOD COUNT 8.2 10^3/uL (4.3-11.0)
[2017-10-21 11:23] LABS: INR 1.6 (0.8-1.4); PROTHROMBIN TIME PATIENT 18.8 SEC (12.2-14.7)
--- NOTE | 2017-10-21 13:27 | Cardiology Progress Note ---
Cardiology SOAP Progress Note Subjective: Nonresponsive Objective: I&O/Vital Signs Vital Sign - Last 12Hours 10/21/17 10/21/17 10/21/17 10/21/17 02:00 03:00 04:00 04:00 Temp 98.6 Pulse 87 80 83 Resp 26 25 12 B/P (MAP) 99/64 (76) 100/57 (71) 95/75 (82) Pulse Ox 100 99 96 97 O2 Delivery Room Air Room Air Room Air Room Air 10/21/17 10/21/17 10/21/17 10/21/17 05:00 06:00 07:00 07:00 Pulse 88 80 82 84 Resp 14 20 27 B/P (MAP) 94/89 (91) 112/85 (94) 87/50 (62) Pulse Ox 93 96 O2 Delivery Room Air Room Air Room Air 10/21/17 10/21/17 10/21/17 10/21/17 08:14 08:30 09:00 10:00 Temp 100.4 Pulse 80 81 76 Resp 22 16 26 B/P (MAP) 100/58 (72) 105/64 (78) 89/62 (71) Pulse Ox 98 98 99 100 O2 Delivery Room Air Room Air Room Air Room Air 10/21/17 10/21/17 10/21/17 11:00 11:00 11:45 Temp 98.9 98.9 O2 Delivery Room Air Intake and Output 10/21/17 00:00 Intake Total 4000 ml Output Total 100 ml Balance 3900 ml Weight (Pounds): 122 Weight (Ounces): 0.0 Weight (Calculated Kilograms): [id number] Constitutional: appears stated age, other (not oriented. Nonresponsive.) Respiratory: lungs clear to percussion, lungs clear to auscultation Cardiovascular: irregularly irregular, S1 and S2 Gastrointestional: No tender, No soft, No round, No distended, No pulsatile mass, No organomegaly, No guarding, No rebound, No tenderness, No hernia, No mass, No audible bowel sounds, No abnormal bowel sounds, No abdominal bruits, No spleenomegaly, No other Extremities: No normal range of motion, No non-tender, No normal inspection, No pedal edema, No calf tenderness, No normal capillary refill, No pelvis stable , No calf tenderness, No inflammation, No pedal edema, No slow capillary refill , No swelling, No other, No abrasion, No clubbing, No cyanosis, No ecchymosis, No laceration, No no lower extremity edema bilateral, No significant edema, No tenderness, No wound Neurologic/Psychiatric: no motor/sensory deficits, disoriented x 3, grossly intact Skin: normal color, warm/dry Results/Procedures: Labs Laboratory Tests 10/20/17 14:20: Lactic Acid Level 4.09*H 10/20/17 14:30: Urine Color YELLOW, Urine Clarity CLEAR, Urine pH 5, Urine Specific [place] 1.015L, Urine Protein 3+H, Urine Glucose (UA) NEGATIVE, Urine Ketones NEGATIVE, Urine Nitrite POSITIVEH, Urine Bilirubin NEGATIVE, Urine Urobilinogen NORMAL, Urine Leukocyte Esterase 2+H, Urine RBC (Auto) 5+H, Urine RBC 5-10H, Urine WBC 2 -5, Urine Squamous Epithelial Cells RARE, Urine Renal Epithelial Cells 0-2, Urine Crystals NONE, Urine Bacteria NEGATIVE, Urine Casts PRESENT, Urine Coarse Granular Casts 0-2H, Urine Mucus NEGATIVE, Urine Culture Indicated YES 10/20/17 16:40: Lactic Acid Level 2.54*H, Troponin I < 0.30, B-Type Natriuretic Peptide 329.3H 10/20/17 23:50: Lactic Acid Level 3.40*H, Troponin I < 0.30, Hemoglobin 8.7#L, Sodium Level 150H , Potassium Level 3.2L, Chloride Level 126#H, Carbon Dioxide Level 14L, Anion Gap 10, Blood Urea Nitrogen 45H, Creatinine 0.89, Estimat Glomerular Filtration Rate > 60, BUN/Creatinine Ratio 51, Glucose Level 99, Calcium Level 6.9L, Magnesium Level 1.9, Albumin 2.2L 10/21/17 04:30: White Blood Count 7.1, Red Blood Count 3.16L, Hemoglobin 8.6L, Hematocrit 27L, Mean Corpuscular Volume 85, Mean Corpuscular Hemoglobin 27, Mean Corpuscular Hemoglobin Concent 32, Red Cell Distribution Width 17.3H, Platelet Count 89L, Mean Platelet Volume 11.7H, Neutrophils (%) (Auto) 85H, Lymphocytes (%) (Auto) 8L, Monocytes (%) (Auto) 6, Eosinophils (%) (Auto) 0, Basophils (%) (Auto) 0, Neutrophils # (Auto) 6.0, Lymphocytes # (Auto) 0.6L, Monocytes # (Auto) 0.4, Eosinophils # (Auto) 0.0, Basophils # (Auto) 0.0, Sodium Level 152H, Potassium Level 3.4L, Chloride Level 122H, Carbon Dioxide Level 20L, Anion Gap 10, Blood Urea Nitrogen 47H, Creatinine 0.96, Estimat Glomerular Filtration Rate > 60, BUN /Creatinine Ratio 49, Glucose Level 124H, Lactic Acid Level 1.69, Calcium Level 9.1, Phosphorus Level 2.1L, Magnesium Level 2.2, Total Bilirubin 0.9, Aspartate Amino Transf (AST/SGOT) 29, Alanine Aminotransferase (ALT/SGPT) 21, Alkaline Phosphatase 52, Total Protein 5.2L, Albumin 2.7L 10/21/17 06:10: Prothrombin Time 20.3H, INR Comment 1.7H 10/21/17 10:47: White Blood Count 8.2, Red Blood Count 3.06L, Hemoglobin 8.2L, Hematocrit 26L, Mean Corpuscular Volume 85, Mean Corpuscular Hemoglobin 27, Mean Corpuscular Hemoglobin Concent 32, Red Cell Distribution Width 17.6H, Platelet Count 83L, Mean Platelet Volume 11.5H, Prothrombin Time 18.8H, INR Comment 1.6H Microbiology 10/20/17 Blood Culture - Preliminary, Resulted Staphylococcus Aureus 10/20/17 Influenza Types A,B Antigen (GIOVANNA) - Final, Complete 10/20/17 Urine Culture - Preliminary, Resulted Staphylococcus Aureus A/P: Assessment/Dx: Sepsis, Influenza, Supratherapeutic INR, Acute kidney injury, Acidosis, Anemia, Coronary artery disease, CABG, Aortic valve replacement, New onset atrial fibrillation. Ischemic cardiomyopathy Plan: Sepsis. On broad-spectrum IV antibiotics. Defer to the primary team. Influenza, on Tamiflu. Supratherapeutic INR, vitamin K given. Coumadin held. Repeat INR. No bleeding. Acute kidney injury: Likely secondary to sepsis and severe influenza. Acidosis: Likely secondary to sepsis. Anemia: Will follow. Coronary artery disease: Last nuclear stress test was in June 2014 which was low risk. Last coronary angiography was in May 2012 which showed patent grafts. LINCOLN was occluded. Severe akhiok disease. Acute coronary syndrome ruled out with serial negative troponin. CABG, Aortic valve replacement: Echocardiogram. Supratherapeutic INR. Hold Coumadin for now. New onset atrial fibrillation: Document with EKG. Likely secondary to acute systemic disease. Ischemic cardiomyopathy: Previous ejection fraction 40 percent likely ischemic cardiomyopathy. Echocardiogram pending. Poor prognosis. Thank you for your consultation. Please call me if you have any questions. Berny Corbin MD, FACP, FACC, FSCAI, FHRS, CCDS Interventional Cardiology Cardiac Electrophysiology Vascular Medicine and Endovascular Interventions Bernadine CORBIN MD Oct 21, 2017 1:27 pm
[2017-10-21] MEDS ORDERED: LORazepam ORAL CONCENTRATE 2 MG/ML 30 ML (ATIVAN) PO PRN (13:30)
[2017-10-21] MEDS ORDERED: ATROPINE 1% OPHTHALMIC SOLN 2 ML SL PRN (13:30)
[2017-10-21] MEDS ORDERED: PROMETHAZINE INJ 25 MG/ML (PHENERGAN) AMP IVP PRN (13:30)
[2017-10-21] MEDS ORDERED: SALIVA STIMULANT MOUTH SPRAY (BIOTENE) 1.5 OZ MM PRN (13:30)
[2017-10-21] MEDS ORDERED: morphine INJ 4 MG/ML 1 ML (VIAL/SYRINGE) IV PRN (13:30)
[2017-10-21] MEDS ORDERED: ARTIFICIAL TEARS OINT (LACRI-LUBE) 3.5 GM TUBE OU PRN (13:30)
[2017-10-21] MEDS ORDERED: LORazepam INJ 2 MG/ML (ATIVAN) VIAL IVP PRN (13:30)
[2017-10-21] MEDS ORDERED: RT-ALBUTEROL/IPRATROPIUM 3 ML (DUONEB) VIAL INH PRN (13:30)
[2017-10-21] MEDS ORDERED: GLYCOPYRROLATE 0.2 MG/ML (ROBINUL) 2 ML VIAL IV PRN (13:30)
[2017-10-21] MEDS ORDERED: ONDANSETRON 4 MG/2 ML (SDV) Z0FRAN IVP PRN (13:30)
[2017-10-21] MEDS ORDERED: ARTIFICAL TEARS 0.4 ML UNIT DOSE (REFRESH PLUS) OU PRN (13:30)
[2017-10-21] MEDS: SCOPOLAMINE 1.5 MG (TRANSDERM-SCOP) PATCH TOP SCH (13:42)
--- NOTE | 2017-10-22 13:37 | Progress Note-Hospitalist ---
Subjective HPI/CC On Admission Date Seen by Provider: Oct 22, 2017 Time Seen by Provider: 11:45 Pt is an 81yoCM with a PMH of CAD s/p CABG and mechanical valve replacement who presented to the ER due to fever and AMS. His symptoms started yesterday with a fever of 102. The staff at the nursing noticed he was more sleepy than normal and had persistent fever. He was also found to have a supratherapeutic INR (>10 per their labs) after Coumadin had been held for two days. He is unable to verbal any complaints and when asked if he felt well he responds "yes." He is unable to provide any history to me. Subjective/Events-last exam patient appears comfortable no meaningful response but does arouse to verbal stimulation. Family at bedside reporting no distress. Objective Exam Vital Signs Vital Sign - Last 12Hours 10/20/17 08:45 Temp 99.1 Pulse 124 Resp 26 B/P (MAP) 89/56 (67) Pulse Ox 96 O2 Delivery Room Air Capillary Refill : Less Than 3 Seconds General Appearance: Chronically ill Respiratory: No Accessory Muscle Use, No Respiratory Distress, Other ( scattered rhonchi chest otherwise clear) Cardiovascular: Regular Rate, Rhythm Assessment/Plan Assessment and Plan Assess & Plan/Chief Complaint 1. Active stage of dying secondary to advanced age with underlying sepsis on comfort care protocol with no evidence for distress corroborated by family. End -of-life issues discussed with family members. Continue comfort care. JORGE JAIMES MD Oct 22, 2017 13:37
[2017-10-23] MEDS: morphine (ROXINOL) 10 MG/0.5 ML oral conc 0.5 ML PO PRN ×2 (09:12→20:22)
--- NOTE | 2017-10-23 11:28 | Progress Note-Hospitalist ---
Subjective HPI/CC On Admission Date Seen by Provider: Oct 23, 2017 Time Seen by Provider: 11:15 Pt is an 81yoCM with a PMH of CAD s/p CABG and mechanical valve replacement who presented to the ER due to fever and AMS. His symptoms started yesterday with a fever of 102. The staff at the nursing noticed he was more sleepy than normal and had persistent fever. He was also found to have a supratherapeutic INR (>10 per their labs) after Coumadin had been held for two days. He is unable to verbal any complaints and when asked if he felt well he responds "yes." He is unable to provide any history to me. Subjective/Events-last exam family report patient has been comfortable without evidence for distress. There is been minimal responsiveness on today and no significant by mouth intake over the past 24 hours. No apneic spells noted by family. Objective Exam Vital Signs Vital Sign - Last 12Hours 10/20/17 08:45 Temp 99.1 Pulse 124 Resp 26 B/P (MAP) 89/56 (67) Pulse Ox 96 O2 Delivery Room Air Capillary Refill : Less Than 3 Seconds General Appearance: No Apparent Distress, Chronically ill Respiratory: Other (respirations nonlabored and clear anteriorly) Cardiovascular: Irregularly Irregular Assessment/Plan Assessment and Plan Assess & Plan/Chief Complaint 1. Active stage of dying secondary to advanced age with underlying sepsis on comfort care protocol with no evidence for distress corroborated by family. End -of-life issues discussed with family members. Continue comfort care. depending on how close the patient appears to be to consider transfer back to [facility] tomorrow with hospice services which is agreeable with the patient's family after discussion today. JORGE JAIMES MD Oct 23, 2017 11:28
[2017-10-24] MEDS: SCOPOLAMINE 1.5 MG (TRANSDERM-SCOP) PATCH TOP SCH (08:04)
--- NOTE | 2017-10-24 10:50 | Progress Note-Hospitalist ---
Standard Progress Note Progress Notes/Assess & Plan Date Seen 10/24/17 Time Seen by Provider: 10:45 Diagnosis Severe Sepsis Assess & Plan/Chief Complaint The patient is an elderly and low functioning white male. He was hospitalized with influenza B and has continued to decline. He has been established as a palliative care patient and will be seen by [facility]. He is awake but does not respond to voice or touch. Physical exam: He is gaunt. Lungs showed tachypnea and very shallow sounds. CV is regular. There is a faint mechanical click. Impression: Initial severe sepsis. 2.past history of prosthetic heart valve with supratherapeutic INR at presentation. 3.dehydration/acute renal failure at presentation. 4.influenza B. 5.MSSA in blood cultures and urine. Plan: Return to longterm with [facility] SHAZIA KLEIN MD Oct 24, 2017 10:50
[2017-10-24] MEDS ORDERED: LORA2ORA PO (11:05)
[2017-10-24] MEDS ORDERED: MORP100S3 PO (11:05)
[2017-10-24] MEDS ORDERED: BISA10SU6 RC (11:23)
[2017-10-24] MEDS ORDERED: Acetaminophen PR (11:25)
[2017-10-24] MEDS ORDERED: SCOPOLAMINE PATCH REMOVAL TP SCH (13:29)
[2017-10-24 15:00] VITALS: BP 100/68
== END 2017-10-24 15:30 | disposition hospice, inpatient (51) | DRG 871 ==
LOC: EDUNIT# 08:34 → ER 08:35 → ICU 10:35 → 4TH 10-21 16:46
PROVIDERS: ADMIT Family Medicine; ATTEND Family Medicine
DX: A41.01 Sepsis due to Methicillin susceptible Staphylococcus aureus (principal); R65.21 Severe sepsis with septic shock; N10 Acute pyelonephritis; B95.61 Methicillin susceptible Staphylococcus aureus infection as the cause of diseases classified elsewhere; N17.9 Acute kidney failure, unspecified; J10.89 Influenza due to other identified influenza virus with other manifestations; R50.9 Fever, unspecified; Z66 Do not resuscitate; Z51.5 Encounter for palliative care; E87.2 Acidosis; F03.91 Unspecified dementia, unspecified severity, with behavioral disturbance; I25.119 Atherosclerotic heart disease of native coronary artery with unspecified angina pectoris; I10 Essential (primary) hypertension; I25.5 Ischemic cardiomyopathy; R79.1 Abnormal coagulation profile; I48.91 Unspecified atrial fibrillation; E78.00 Pure hypercholesterolemia, unspecified; D69.6 Thrombocytopenia, unspecified; D64.9 Anemia, unspecified; N40.0 Benign prostatic hyperplasia without lower urinary tract symptoms; M19.91 Primary osteoarthritis, unspecified site; H91.90 Unspecified hearing loss, unspecified ear; Z95.2 Presence of prosthetic heart valve; Z95.1 Presence of aortocoronary bypass graft; Z79.01 Long term (current) use of anticoagulants; Z87.891 Personal history of nicotine dependence; Z87.11 Personal history of peptic ulcer disease; Z86.79 Personal history of other diseases of the circulatory system
CPT/HCPCS: 36415; 70450; 71045; 80048; 80053; 81000; 82040; 82330; 83605; 83735; 83880; 84100; 84484; 85007; 85018; 85025; 85027; 85610; 85730; 87040; 87077; 87081; 87088; 87186; 87804; 93005; 93306; 96361; 96365